=== PATIENT | male | born 1955 | race Caucasian/White ===

== ENCOUNTER 2018-10-24 14:00 | Emergency (ER) | payer OTHER, SELFPAY ==
[2018-10-24 14:05] VITALS: BP 141/88; PULSE 53; RESP 14; TEMP 36.6; O2SAT 99
--- NOTE | 2018-10-24 14:20 | ED.MALEGU ---
HPI - Male Genitourinary <Diane Cope PA-C - Last Filed: 10/24/18 21:56> General Chief complaint: Urogenital-Male Stated complaint: thinks he is having an appendicitis Time Seen by Provider: 10/24/18 14:15 Source: patient Mode of arrival: ambulatory Limitations: no limitations History of Present Illness HPI Narrative: This 63-year-old male complains of abrupt onset of right side pain about 3 hours ago while driving. He denies any trauma or injury. He states that he can feel this in his right lower abdomen but also in his back across the belt line. States that pain is constant but gets more severe spasmodic type of pain that will last for a couple of minutes, then get slightly better. He states that he tried to lie down but this did not help as it usually does with his chronic intermittent back pain. He states there are no exacerbating or alleviating features to this pain. states he had some nausea earlier but none now, no vomiting. he denies any fever, chills, sweats. He denies any urinary symptoms today or hematuria. He states he had a normal, slightly smaller than usual bowel movement last night. He had a cold recently which seems to be improving. Denies any wheeze or dyspnea. He denies any pain in his extremities. he states that he tried Tylenol arthritis Strength for pain earlier without any relief. He is on Celebrex for his chronic back and neck issues but has not taken that today. He denies any other new symptoms on systems review Related Data Previous Rx's Medication Instructions Recorded oxycodone-acetaminophen [Percocet] 1 tab PO Q4-6H PRN #10 tab 10/24/18 Allergies Allergy/AdvReac Type Severity Reaction Status Date / Time No Known Drug Allergies Allergy Verified 10/24/18 14:09 Review of Systems <Diane Cope PA-C - Last Filed: 10/24/18 21:56> Review of Systems ROS Unobtainable: All systems reviewed & are unremarkable except as noted in HPI and below PFSH <Diane Cope PA-C - Last Filed: 10/24/18 21:56> Medical History (Updated 10/24/18 @ 17:04 by Diane Cope PA-C) BPH (benign prostatic hyperplasia) (Chronic) Degenerative disc disease (Chronic) History of colon polyps (Chronic) Osteoarthritis (Chronic) Surgical History (Updated 10/24/18 @ 14:40 by Diane Cope PA-C) History of adenoidectomy (Resolved) History of shoulder surgery (Resolved) Status post laminectomy (Resolved) Social History (Updated 10/24/18 @ 14:40 by Diane Cope PA-C) Smoking Status: Never smoker alcohol intake: current Social History (Updated 10/24/18 @ 14:40 by Diane Cope PA-C) Smoking Status: Never smoker alcohol intake: current Comment: Occasional ETOH Exam <Diane Cope PA-C - Last Filed: 10/24/18 21:56> Narrative Exam Narrative: GENERAL APPEARANCE: Patient sitting comfortably, in no distress. HEENT: PERRL, EOMI, no scleral icterus NECK: Supple LUNGS: Clear to auscultation bilaterally. HEART: Rate and rhythm regular, normal S1 and S2, no S3 or S4. ABDOMEN: Soft, nondistended, bowel sounds present x 4 quadrants, no masses palpable, no hepatosplenomegaly. minimal right upper quadrant tenderness, moderate right CVAT. moderate tenderness over the right lower quadrant and pelvic border without guarding or rebound EXTREMITIES: No edema DERMATOLOGIC: No jaundice or exanthem NEUROLOGIC: Alert and oriented with normal speech and coordination Initial Vital Signs Initial Vital Signs: Vital Signs Temperature 97.9 F 10/24/18 14:05 Pulse Rate 53 L 10/24/18 14:05 Respiratory Rate 14 10/24/18 14:05 Blood Pressure 141/88 H 10/24/18 14:05 Pulse Oximetry 99 10/24/18 14:05 <Niki Ayers MD - Last Filed: 11/03/18 07:39> Initial Vital Signs Initial Vital Signs: Vital Signs Temperature 97.9 F 10/24/18 14:05 Pulse Rate 53 L 10/24/18 14:05 Respiratory Rate 14 10/24/18 14:05 Blood Pressure 141/88 H 10/24/18 14:05 Pulse Oximetry 99 10/24/18 14:05 Course <Diane Cope PA-C - Last Filed: 10/24/18 21:56> Additional Information: Patient is feeling much improved at the time of discharge. He was given a prescription for Percocet to continue as needed as he has taken oxycodone without problem for his spinal issues in the past. He has follow-up set up with his PCP for tomorrow and discussed he may need a referral to see Urology if this stone is not passing as expected. He agreed to return if acutely worsening symptoms again in the interim Orders Ordered: Discontinued Medications Hydromorphone HCl (Dilaudid) 1 mg IV NOW ONE Stop: 10/24/18 14:35 Last Admin: 10/24/18 14:39 Dose: 1 mg Sodium Chloride (Normal Saline 0.9%) 1,000 mls @ 1,000 mls/hr IV BOLUS ONE Stop: 10/24/18 15:33 Last Infusion: 10/24/18 16:10 Dose: 0 mls/hr Admin: 10/24/18 14:40 Dose: 1,000 mls/hr Ketorolac Tromethamine (Toradol) 30 mg IV NOW ONE Stop: 10/24/18 14:35 Last Admin: 10/24/18 14:40 Dose: 30 mg Ondansetron HCl (Zofran) 4 mg IV NOW ONE Stop: 10/24/18 14:35 Last Admin: 10/24/18 14:40 Dose: 4 mg Vital Signs - 8 hr 10/24/18 14:05 10/24/18 17:10 Temperature 97.9 F 98.7 F Pulse Rate 53 L 52 L Respiratory Rate 14 20 Blood Pressure 141/88 H 127/89 Pulse Oximetry 99 98 <Niki Ayers MD - Last Filed: 11/03/18 07:39> Orders Ordered: Discontinued Medications Hydromorphone HCl (Dilaudid) 1 mg IV NOW ONE Stop: 10/24/18 14:35 Last Admin: 10/24/18 14:39 Dose: 1 mg Sodium Chloride (Normal Saline 0.9%) 1,000 mls @ 1,000 mls/hr IV BOLUS ONE Stop: 10/24/18 15:33 Last Infusion: 10/24/18 16:10 Dose: 0 mls/hr Admin: 10/24/18 14:40 Dose: 1,000 mls/hr Ketorolac Tromethamine (Toradol) 30 mg IV NOW ONE Stop: 10/24/18 14:35 Last Admin: 10/24/18 14:40 Dose: 30 mg Ondansetron HCl (Zofran) 4 mg IV NOW ONE Stop: 10/24/18 14:35 Last Admin: 10/24/18 14:40 Dose: 4 mg Vital Signs - 8 hr 10/24/18 14:05 10/24/18 17:10 Temperature 97.9 F 98.7 F Pulse Rate 53 L 52 L Respiratory Rate 14 20 Blood Pressure 141/88 H 127/89 Pulse Oximetry 99 98 MDM - Male Genitourinary <Diane Cope PA-C - Last Filed: 10/24/18 21:56> Lab Data Attestation: I reviewed the patient's lab results. Result diagrams: 10/24/18 Unknown 10/24/18 Unknown Lab Results 10/24/18 10/24/18 10/24/18 Range/Units 16:14 Unknown Unknown WBC 6.6 (4.5-11.0) X10^3/uL RBC 5.00 (4.5-5.9) X10^6/uL Hgb 15.5 (13.5-17.5) g/dL Hct 46.7 (41-53) % MCV 93.5 (80-100) fL MCH 30.9 (26-34) PG MCHC 33.1 (30-36) % RDW 13.1 (11.6-14.8) % Plt Count 203 (150-400) X10^3/uL Neut % (Auto) 48.7 L (50-75) % Lymph % (Auto) 33.5 (25-40) % [place] % (Auto) 13.2 (3-14) % Eos % (Auto) 3.9 (2-4) % Baso % (Auto) 0.7 (0-2) % Neut # (Auto) 3200 (8348-7179) /uL Lymph # (Auto) 2200 (4440-5478) /uL [place] # (Auto) 900 (0-900) /uL Eos # (Auto) 300 (0-450) /uL Baso # (Auto) 0 (0-100) /uL Sodium 140 (137-145) mmol/L Potassium 4.2 (3.4-5.1) mmol/L Chloride 106 (98-107) mmol/L Carbon Dioxide 23 (22-32) mmol/L BUN 18 (9-20) mg/dL Creatinine 1.00 (0.66-1.25) mg/dL Estimated GFR > 60.0 (>60) mL/min BUN/Creatinine Ratio 18.0 (6-22) Glucose 107 (80-110) mg/dL Calcium 9.1 (8.4-10.2) mg/dL Total Bilirubin 0.5 (0.2-1.3) mg/dL AST 37 (17-59) IU/L ALT 38 (21-72) IU/L Alkaline Phosphatase 71 (38-126) U/L Total Protein 7.6 (6.3-8.2) g/dL Albumin 4.3 (3.5-5.0) g/dL Globulin 3.3 (1.7-4.1) g/dL Albumin/Globulin Ratio 1.3 (1.0-2.8) Lipase 81 (23-300) U/L Urine RBC 30-100/hpf H (0-5/HPF) Urine WBC 0-1/hpf (0-5/HPF) Ur Squamous Epith Cells 0-1 /hpf Calcium Oxalate Crystal Moderate H (None) Amorphous Sediment 1+ Urine Bacteria None seen (None) Urine Mucus 3+ H (Negative) Ur Culture Indicated? Cult not indicated Urine Dip Bedside Urine Glucose Negative Bedside Urine Bilirubin + 1 Bedside Urine Ketone +/- 5 Urine Specific [place] 1.030 Bedside Urine Occult Blood +++ Bedside Urine pH 5.0 Bedside Urine Protein + 30 Bedside Urine Urobilinogen +/- 1mg Bedside Urine Nitrite - Negative Bedside Urine Leukocytes - Negative Esterase Imaging Data KUB CT: Radiologist's impression: 19 Diane Cope PA-C Find Patient Imaging Neno Arceo 63 M 1955 ACTIVITY DATE EXAM STATUS AUTHOR 10/24/18 14:44 [place] [address] CT Scan Report Signed Patient: Neno Arceo [facility]#: [id number] : 7Acct:[id number] Age/Sex: 63 / MDate of Service: 10/24/18 Loc: ED Accession Number: [id number] Procedure: CT kidney ureter bladder (KUB) Ordering Provider: Diane Cope P.A-C PROCEDURE: CT KIDNEY URETER BLADDER (KUB) INDICATIONS: Right flank pain ?stone TECHNIQUE: Noncontrast 5 mm thick sections acquired from the diaphragms to the symphysis. 5 mm thick coronal and sagittal reformats were then performed. For radiation dose reduction, the following was used: automated exposure control, adjustment of mA and/or kV according to patient size. COMPARISON: None. FINDINGS: Image quality: Excellent. Lung bases: There is mild scarring the visualized lung bases. There are few small subpleural nodules including a 6 mm nodule in the inferior right middle lobe on series 5 image 11, a 6 mm nodule in the right lower lobe on image 7, and a small 4 mm subpleural nodule in the right middle lobe on image 1. There are postsurgical changes status post fixation of the right 6th rib laterally. Heart size is normal. Urinary system: There is a small obstructing stone in the proximal right ureter at the ureteropelvic junction measuring up to approximately 5 mm with associated mild to moderate right hydronephrosis. There is perinephric stranding bilaterally, right greater than left. The mid to distal right ureter are normal in caliber. An additional punctate nonobstructing stone is demonstrated within the right kidney. No definite left renal stones. No left hydronephrosis. Left ureter is normal in caliber. Bladder wall thickness is normal; no calcified bladder stones. Other solid organs: Noncontrast evaluation of the liver demonstrates no focal hepatic lesions. The gallbladder appears within normal limits without calcified gallstones. Pancreas is normal in contours. Spleen is normal in size. No adrenal nodules. Peritoneum and bowel: Unenhanced bowel loops demonstrate normal wall thickness and caliber. The appendix is normal in appearance. No free fluid or air. Nodes and vessels: No retroperitoneal or mesenteric adenopathy by size criteria. Aorta and inferior vena cava are normal in caliber. Abdominal wall: No ventral hernias. Pelvis: No free pelvic fluid. No inguinal hernias or adenopathy. Bones: No suspicious bony lesions. No vertebral body compression fractures. IMPRESSION: 1. Obstructing urinary stone at the right UPJ with associated mild to moderate hydronephrosis. Dictated by: Danny Bedolla M.D. on 10/24/2018 at 15:06 Approved by: Danny Bedolla M.D. on 10/24/2018 at 15:11 <Niki Ayers MD - Last Filed: 11/03/18 07:39> Lab Data Lab Results 10/24/18 10/24/18 10/24/18 Range/Units 16:14 Unknown Unknown WBC 6.6 (4.5-11.0) X10^3/uL RBC 5.00 (4.5-5.9) X10^6/uL Hgb 15.5 (13.5-17.5) g/dL Hct 46.7 (41-53) % MCV 93.5 (80-100) fL MCH 30.9 (26-34) PG MCHC 33.1 (30-36) % RDW 13.1 (11.6-14.8) % Plt Count 203 (150-400) X10^3/uL Neut % (Auto) 48.7 L (50-75) % Lymph % (Auto) 33.5 (25-40) % [place] % (Auto) 13.2 (3-14) % Eos % (Auto) 3.9 (2-4) % Baso % (Auto) 0.7 (0-2) % Neut # (Auto) 3200 (0[address]46) /uL Lymph # (Auto) 2200 (7990-5656) /uL [place] # (Auto) 900 (0-900) /uL Eos # (Auto) 300 (0-450) /uL Baso # (Auto) 0 (0-100) /uL Sodium 140 (137-145) mmol/L Potassium 4.2 (3.4-5.1) mmol/L Chloride 106 (98-107) mmol/L Carbon Dioxide 23 (22-32) mmol/L BUN 18 (9-20) mg/dL Creatinine 1.00 (0.66-1.25) mg/dL Estimated GFR > 60.0 (>60) mL/min BUN/Creatinine Ratio 18.0 (6-22) Glucose 107 (80-110) mg/dL Calcium 9.1 (8.4-10.2) mg/dL Total Bilirubin 0.5 (0.2-1.3) mg/dL AST 37 (17-59) IU/L ALT 38 (21-72) IU/L Alkaline Phosphatase 71 (38-126) U/L Total Protein 7.6 (6.3-8.2) g/dL Albumin 4.3 (3.5-5.0) g/dL Globulin 3.3 (1.7-4.1) g/dL Albumin/Globulin Ratio 1.3 (1.0-2.8) Lipase 81 (23-300) U/L Urine RBC 30-100/hpf H (0-5/HPF) Urine WBC 0-1/hpf (0-5/HPF) Ur Squamous Epith Cells 0-1 /hpf Calcium Oxalate Crystal Moderate H (None) Amorphous Sediment 1+ Urine Bacteria None seen (None) Urine Mucus 3+ H (Negative) Ur Culture Indicated? Cult not indicated Urine Dip Bedside Urine Glucose Negative Bedside Urine Bilirubin + 1 Bedside Urine Ketone +/- 5 Urine Specific [place] 1.030 Bedside Urine Occult Blood +++ Bedside Urine pH 5.0 Bedside Urine Protein + 30 Bedside Urine Urobilinogen +/- 1mg Bedside Urine Nitrite - Negative Bedside Urine Leukocytes - Negative Esterase Discharge Plan Departure Patient Disposition: Home Clinical Impression: Right nephrolithiasis Discharge Date/Time: 10/24/18 17:11 Interventions: ED Discharge Assessment Last Done: 10/24/18 17:10 Instructions: DI for Kidney Stones Activity Restrictions/Additional Instructions: Please return as we talked about if you have acutely worsening symptoms, i.e. uncontrolled pain, new fever or vomiting or inability to urinate. You do have a kidney stone on the right side that is at the junction of your ureter (the tube connecting your kidney and bladder) and your pelvis, and this is likely what has caused your pain today. The size of stone that you have will typically pass on its own, but you may need to see a urologist if it is not passing and you're not feeling better. Please take your Flomax as usual tonight, drink plenty of fluids, and you can take the oxycodone/acetaminophen as needed since you have done well with that in the past for pain in your back (do not drive as it may make you sleepy). Follow-up with your PCP as planned tomorrow to assess your progress and determine whether you need to see a urologist Prescriptions: New oxycodone-acetaminophen [Percocet] 5-325 mg tablet 1 tab PO Q4-6H PRN (Reason: acute kidney stone pain) Qty: 10 RF: 0 Referrals: [facility] [Provider Group]
[2018-10-24] MEDS: HYDROMORPHONE 1 MG INJ IV (14:39)
[2018-10-24] MEDS: KETOROLAC 60 MG/2 ML VIAL 30 MG IV (14:40)
[2018-10-24] MEDS: SODIUM CHLORIDE 0.9% 1,000 ML 1000 ML IV (14:40)
[2018-10-24] MEDS: ONDANSETRON 4 MG/2 ML INJ IV (14:40)
--- NOTE | 2018-10-24 14:41 | ED_ITS ---
HPI - Male Genitourinary <Diane Cope PA-C - Last Filed: 10/24/18 21:56> General Chief complaint: Urogenital-Male Stated complaint: thinks he is having an appendicitis Time Seen by Provider: 10/24/18 14:15 Source: patient Mode of arrival: ambulatory Limitations: no limitations History of Present Illness HPI Narrative: This 63-year-old male complains of abrupt onset of right side pain about 3 hours ago while driving. He denies any trauma or injury. He states that he can feel this in his right lower abdomen but also in his back across the belt line. States that pain is constant but gets more severe spasmodic type of pain that will last for a couple of minutes, then get slightly better. He states that he tried to lie down but this did not help as it usually does with his chronic intermittent back pain. He states there are no exacerbating or alleviating features to this pain. states he had some nausea earlier but none now, no vomiting. he denies any fever, chills, sweats. He denies any urinary symptoms today or hematuria. He states he had a normal, slightly smaller than usual bowel movement last night. He had a cold recently which seems to be improving. Denies any wheeze or dyspnea. He denies any pain in his extremities. he states that he tried Tylenol arthritis Strength for pain earlier without any relief. He is on Celebrex for his chronic back and neck issues but has not taken that today. He denies any other new symptoms on systems review Related Data Previous Rx's Medication Instructions Recorded oxycodone-acetaminophen [Percocet] 1 tab PO Q4-6H PRN #10 tab 10/24/18 Allergies Allergy/AdvReac Type Severity Reaction Status Date / Time No Known Drug Allergies Allergy Verified 10/24/18 14:09 Review of Systems <Diane Cope PA-C - Last Filed: 10/24/18 21:56> Review of Systems ROS Unobtainable: All systems reviewed & are unremarkable except as noted in HPI and below PFSH <Diane Cope PA-C - Last Filed: 10/24/18 21:56> Medical History (Updated 10/24/18 @ 17:04 by Diane Cope PA-C) BPH (benign prostatic hyperplasia) (Chronic) Degenerative disc disease (Chronic) History of colon polyps (Chronic) Osteoarthritis (Chronic) Surgical History (Updated 10/24/18 @ 14:40 by Diane Cope PA-C) History of adenoidectomy (Resolved) History of shoulder surgery (Resolved) Status post laminectomy (Resolved) Social History (Updated 10/24/18 @ 14:40 by Diane Cope PA-C) Smoking Status: Never smoker alcohol intake: current Social History (Updated 10/24/18 @ 14:40 by Diane Cope PA-C) Smoking Status: Never smoker alcohol intake: current Comment: Occasional ETOH Exam <Diane Cope PA-C - Last Filed: 10/24/18 21:56> Narrative Exam Narrative: GENERAL APPEARANCE: Patient sitting comfortably, in no distress. HEENT: PERRL, EOMI, no scleral icterus NECK: Supple LUNGS: Clear to auscultation bilaterally. HEART: Rate and rhythm regular, normal S1 and S2, no S3 or S4. ABDOMEN: Soft, nondistended, bowel sounds present x 4 quadrants, no masses palpable, no hepatosplenomegaly. minimal right upper quadrant tenderness, moderate right CVAT. moderate tenderness over the right lower quadrant and pelvic border without guarding or rebound EXTREMITIES: No edema DERMATOLOGIC: No jaundice or exanthem NEUROLOGIC: Alert and oriented with normal speech and coordination Initial Vital Signs Initial Vital Signs: Vital Signs Temperature 97.9 F 10/24/18 14:05 Pulse Rate 53 L 10/24/18 14:05 Respiratory Rate 14 10/24/18 14:05 Blood Pressure 141/88 H 10/24/18 14:05 Pulse Oximetry 99 10/24/18 14:05 <Niki Ayers MD - Last Filed: 11/03/18 07:39> Initial Vital Signs Initial Vital Signs: Vital Signs Temperature 97.9 F 10/24/18 14:05 Pulse Rate 53 L 10/24/18 14:05 Respiratory Rate 14 10/24/18 14:05 Blood Pressure 141/88 H 10/24/18 14:05 Pulse Oximetry 99 10/24/18 14:05 Course <Diane Cope PA-C - Last Filed: 10/24/18 21:56> Additional Information: Patient is feeling much improved at the time of discharge. He was given a prescription for Percocet to continue as needed as he has taken oxycodone without problem for his spinal issues in the past. He has follow-up set up with his PCP for tomorrow and discussed he may need a referral to see Urology if this stone is not passing as expected. He agreed to return if acutely worsening symptoms again in the interim Orders Ordered: Discontinued Medications Hydromorphone HCl (Dilaudid) 1 mg IV NOW ONE Stop: 10/24/18 14:35 Last Admin: 10/24/18 14:39 Dose: 1 mg Sodium Chloride (Normal Saline 0.9%) 1,000 mls @ 1,000 mls/hr IV BOLUS ONE Stop: 10/24/18 15:33 Last Infusion: 10/24/18 16:10 Dose: 0 mls/hr Admin: 10/24/18 14:40 Dose: 1,000 mls/hr Ketorolac Tromethamine (Toradol) 30 mg IV NOW ONE Stop: 10/24/18 14:35 Last Admin: 10/24/18 14:40 Dose: 30 mg Ondansetron HCl (Zofran) 4 mg IV NOW ONE Stop: 10/24/18 14:35 Last Admin: 10/24/18 14:40 Dose: 4 mg Vital Signs - 8 hr 10/24/18 14:05 10/24/18 17:10 Temperature 97.9 F 98.7 F Pulse Rate 53 L 52 L Respiratory Rate 14 20 Blood Pressure 141/88 H 127/89 Pulse Oximetry 99 98 <Niki Ayers MD - Last Filed: 11/03/18 07:39> Orders Ordered: Discontinued Medications Hydromorphone HCl (Dilaudid) 1 mg IV NOW ONE Stop: 10/24/18 14:35 Last Admin: 10/24/18 14:39 Dose: 1 mg Sodium Chloride (Normal Saline 0.9%) 1,000 mls @ 1,000 mls/hr IV BOLUS ONE Stop: 10/24/18 15:33 Last Infusion: 10/24/18 16:10 Dose: 0 mls/hr Admin: 10/24/18 14:40 Dose: 1,000 mls/hr Ketorolac Tromethamine (Toradol) 30 mg IV NOW ONE Stop: 10/24/18 14:35 Last Admin: 10/24/18 14:40 Dose: 30 mg Ondansetron HCl (Zofran) 4 mg IV NOW ONE Stop: 10/24/18 14:35 Last Admin: 10/24/18 14:40 Dose: 4 mg Vital Signs - 8 hr 10/24/18 14:05 10/24/18 17:10 Temperature 97.9 F 98.7 F Pulse Rate 53 L 52 L Respiratory Rate 14 20 Blood Pressure 141/88 H 127/89 Pulse Oximetry 99 98 MDM - Male Genitourinary <Diane oCpe PA-C - Last Filed: 10/24/18 21:56> Lab Data Attestation: I reviewed the patient's lab results. Result diagrams: 10/24/18 Unknown 10/24/18 Unknown Lab Results 10/24/18 10/24/18 10/24/18 Range/Units 16:14 Unknown Unknown WBC 6.6 (4.5-11.0) X10^3/uL RBC 5.00 (4.5-5.9) X10^6/uL Hgb 15.5 (13.5-17.5) g/dL Hct 46.7 (41-53) % MCV 93.5 (80-100) fL MCH 30.9 (26-34) PG MCHC 33.1 (30-36) % RDW 13.1 (11.6-14.8) % Plt Count 203 (150-400) X10^3/uL Neut % (Auto) 48.7 L (50-75) % Lymph % (Auto) 33.5 (25-40) % Frederick % (Auto) 13.2 (3-14) % Eos % (Auto) 3.9 (2-4) % Baso % (Auto) 0.7 (0-2) % Neut # (Auto) 3200 (6979-4651) /uL Lymph # (Auto) 2200 (6796-9491) /uL Frederick # (Auto) 900 (0-900) /uL Eos # (Auto) 300 (0-450) /uL Baso # (Auto) 0 (0-100) /uL Sodium 140 (137-145) mmol/L Potassium 4.2 (3.4-5.1) mmol/L Chloride 106 (98-107) mmol/L Carbon Dioxide 23 (22-32) mmol/L BUN 18 (9-20) mg/dL Creatinine 1.00 (0.66-1.25) mg/dL Estimated GFR > 60.0 (>60) mL/min BUN/Creatinine Ratio 18.0 (6-22) Glucose 107 (80-110) mg/dL Calcium 9.1 (8.4-10.2) mg/dL Total Bilirubin 0.5 (0.2-1.3) mg/dL AST 37 (17-59) IU/L ALT 38 (21-72) IU/L Alkaline Phosphatase 71 (38-126) U/L Total Protein 7.6 (6.3-8.2) g/dL Albumin 4.3 (3.5-5.0) g/dL Globulin 3.3 (1.7-4.1) g/dL Albumin/Globulin Ratio 1.3 (1.0-2.8) Lipase 81 (23-300) U/L Urine RBC 30-100/hpf H (0-5/HPF) Urine WBC 0-1/hpf (0-5/HPF) Ur Squamous Epith Cells 0-1 /hpf Calcium Oxalate Crystal Moderate H (None) Amorphous Sediment 1+ Urine Bacteria None seen (None) Urine Mucus 3+ H (Negative) Ur Culture Indicated? Cult not indicated Urine Dip Bedside Urine Glucose Negative Bedside Urine Bilirubin + 1 Bedside Urine Ketone +/- 5 Urine Specific [place] 1.030 Bedside Urine Occult Blood +++ Bedside Urine pH 5.0 Bedside Urine Protein + 30 Bedside Urine Urobilinogen +/- 1mg Bedside Urine Nitrite - Negative Bedside Urine Leukocytes - Negative Esterase Imaging Data KUB CT: Radiologist's impression: 19 Diane Cope PA-C Find Patient Imaging Neno Arceo 63 M 1955 ACTIVITY DATE EXAM STATUS AUTHOR 10/24/18 14:44 [place] [address] CT Scan Report Signed Patient: Neno Arceo [facility]#: [id number] : 7Acct:[id number] Age/Sex: 63 / MDate of Service: 10/24/18 Loc: ED Accession Number: [id number] Procedure: CT kidney ureter bladder (KUB) Ordering Provider: Diane Cope P.A-C PROCEDURE: CT KIDNEY URETER BLADDER (KUB) INDICATIONS: Right flank pain ?stone TECHNIQUE: Noncontrast 5 mm thick sections acquired from the diaphragms to the symphysis. 5 mm thick coronal and sagittal reformats were then performed. For radiation dose reduction, the following was used: automated exposure control, adjustment of mA and/or kV according to patient size. COMPARISON: None. FINDINGS: Image quality: Excellent. Lung bases: There is mild scarring the visualized lung bases. There are few small subpleural nodules including a 6 mm nodule in the inferior right middle lobe on series 5 image 11, a 6 mm nodule in the right lower lobe on image 7, and a small 4 mm subpleural nodule in the right middle lobe on image 1. There are postsurgical changes status post fixation of the right 6th rib laterally. Heart size is normal. Urinary system: There is a small obstructing stone in the proximal right ureter at the ureteropelvic junction measuring up to approximately 5 mm with associated mild to moderate right hydronephrosis. There is perinephric stranding bilaterally, right greater than left. The mid to distal right ureter are normal in caliber. An additional punctate nonobstructing stone is demonstrated within the right kidney. No definite left renal stones. No left hydronephrosis. Left ureter is normal in caliber. Bladder wall thickness is normal; no calcified bladder stones. Other solid organs: Noncontrast evaluation of the liver demonstrates no focal hepatic lesions. The gallbladder appears within normal limits without calcified g allstones. Pancreas is normal in contours. Spleen is normal in size. No adrenal nodules. Peritoneum and bowel: Unenhanced bowel loops demonstrate normal wall thickness and caliber. The appendix is normal in appearance. No free fluid or air. Nodes and vessels: No retroperitoneal or mesenteric adenopathy by size criteria. Aorta and inferior vena cava are normal in caliber. Abdominal wall: No ventral hernias. Pelvis: No free pelvic fluid. No inguinal hernias or adenopathy. Bones: No suspicious bony lesions. No vertebral body compression fractures. IMPRESSION: 1. Obstructing urinary stone at the right UPJ with associated mild to moderate hydronephrosis. Dictated by: Danny Bedolla M.D. on 10/24/2018 at 15:06 Approved by: Danny Bedolla M.D. on 10/24/2018 at 15:11 <Niki Ayers MD - Last Filed: 11/03/18 07:39> Lab Data Lab Results 10/24/18 10/24/18 10/24/18 Range/Units 16:14 Unknown Unknown WBC 6.6 (4.5-11.0) X10^3/uL RBC 5.00 (4.5-5.9) X10^6/uL Hgb 15.5 (13.5-17.5) g/dL Hct 46.7 (41-53) % MCV 93.5 (80-100) fL MCH 30.9 (26-34) PG MCHC 33.1 (30-36) % RDW 13.1 (11.6-14.8) % Plt Count 203 (150-400) X10^3/uL Neut % (Auto) 48.7 L (50-75) % Lymph % (Auto) 33.5 (25-40) % Frederick % (Auto) 13.2 (3-14) % Eos % (Auto) 3.9 (2-4) % Baso % (Auto) 0.7 (0-2) % Neut # (Auto) 3200 (0187-6182) /uL Lymph # (Auto) 2200 (4222-1931) /uL Frederick # (Auto) 900 (0-900) /uL Eos # (Auto) 300 (0-450) /uL Baso # (Auto) 0 (0-100) /uL Sodium 140 (137-145) mmol/L Potassium 4.2 (3.4-5.1) mmol/L Chloride 106 (98-107) mmol/L Carbon Dioxide 23 (22-32) mmol/L BUN 18 (9-20) mg/dL Creatinine 1.00 (0.66-1.25) mg/dL Estimated GFR > 60.0 (>60) mL/min BUN/Creatinine Ratio 18.0 (6-22) Glucose 107 (80-110) mg/dL Calcium 9.1 (8.4-10.2) mg/dL Total Bilirubin 0.5 (0.2-1.3) mg/dL AST 37 (17-59) IU/L ALT 38 (21-72) IU/L Alkaline Phosphatase 71 (38-126) U/L Total Protein 7.6 (6.3-8.2) g/dL Albumin 4.3 (3.5-5.0) g/dL Globulin 3.3 (1.7-4.1) g/dL Albumin/Globulin Ratio 1.3 (1.0-2.8) Lipase 81 (23-300) U/L Urine RBC 30-100/hpf H (0-5/HPF) Urine WBC 0-1/hpf (0-5/HPF) Ur Squamous Epith Cells 0-1 /hpf Calcium Oxalate Crystal Moderate H (None) Amorphous Sediment 1+ Urine Bacteria None seen (None) Urine Mucus 3+ H (Negative) Ur Culture Indicated? Cult not indicated Urine Dip Bedside Urine Glucose Negative Bedside Urine Bilirubin + 1 Bedside Urine Ketone +/- 5 Urine Specific [place] 1.030 Bedside Urine Occult Blood +++ Bedside Urine pH 5.0 Bedside Urine Protein + 30 Bedside Urine Urobilinogen +/- 1mg Bedside Urine Nitrite - Negative Bedside Urine Leukocytes - Negative Esterase Discharge Plan Departure Patient Disposition: Home Clinical Impression: Right nephrolithiasis Discharge Date/Time: 10/24/18 17:11 Interventions: ED Discharge Assessment Last Done: 10/24/18 17:10 Instructions: DI for Kidney Stones Activity Restrictions/Additional Instructions: Please return as we talked about if you have acutely worsening symptoms, i.e. uncontrolled pain, new fever or vomiting or inability to urinate. You do have a kidney stone on the right side that is at the junction of your ureter (the tube connecting your kidney and bladder) and your pelvis, and this is likely what has caused your pain today. The size of stone that you have will typically pass on its own, but you may need to see a urologist if it is not passing and you're not feeling better. Please take your Flomax as usual tonight, drink plenty of fluids, and you can take the oxycodone/acetaminophen as needed since you have done well with that in the past for pain in your back (do not drive as it may make you sleepy). Follow-up with your PCP as planned tomorrow to assess your progress and determine whether you need to see a urologist Prescriptions: New oxycodone-acetaminophen [Percocet] 5-325 mg tablet 1 tab PO Q4-6H PRN (Reason: acute kidney stone pain) Qty: 10 RF: 0 Referrals: [facility] [Provider Group]
--- NOTE | 2018-10-24 14:44 | DI.CT.S_ITS ---
PROCEDURE: CT KIDNEY URETER BLADDER (KUB) INDICATIONS: Right flank pain ?stone TECHNIQUE: Noncontrast 5 mm thick sections acquired from the diaphragms to the symphysis. 5 mm thick coronal and sagittal reformats were then performed. For radiation dose reduction, the following was used: automated exposure control, adjustment of mA and/or kV according to patient size. COMPARISON: None. FINDINGS: Image quality: Excellent. Lung bases: There is mild scarring the visualized lung bases. There are few small subpleural nodules including a 6 mm nodule in the inferior right middle lobe on series 5 image 11, a 6 mm nodule in the right lower lobe on image 7, and a small 4 mm subpleural nodule in the right middle lobe on image 1. There are postsurgical changes status post fixation of the right 6th rib laterally. Heart size is normal. Urinary system: There is a small obstructing stone in the proximal right ureter at the ureteropelvic junction measuring up to approximately 5 mm with associated mild to moderate right hydronephrosis. There is perinephric stranding bilaterally, right greater than left. The mid to distal right ureter are normal in caliber. An additional punctate nonobstructing stone is demonstrated within the right kidney. No definite left renal stones. No left hydronephrosis. Left ureter is normal in caliber. Bladder wall thickness is normal; no calcified bladder stones. Other solid organs: Noncontrast evaluation of the liver demonstrates no focal hepatic lesions. The gallbladder appears within normal limits without calcified gallstones. Pancreas is normal in contours. Spleen is normal in size. No adrenal nodules. Peritoneum and bowel: Unenhanced bowel loops demonstrate normal wall thickness and caliber. The appendix is normal in appearance. No free fluid or air. Nodes and vessels: No retroperitoneal or mesenteric adenopathy by size criteria. Aorta and inferior vena cava are normal in caliber. Abdominal wall: No ventral hernias. Pelvis: No free pelvic fluid. No inguinal hernias or adenopathy. Bones: No suspicious bony lesions. No vertebral body compression fractures. IMPRESSION: 1. Obstructing urinary stone at the right UPJ with associated mild to moderate hydronephrosis. Dictated by: Danny Bedolla M.D. on 10/24/2018 at 15:06 Approved by: Danny Bedolla M.D. on 10/24/2018 at 15:11
[2018-10-24 14:50] LABS: Add Manual Diff / Slide Review NO; Basophils Absolute Auto 0 /uL (0-100); Basophils Percent Auto 0.7 % (0-2); Eosinophils Absolute Auto 300 /uL (0-450); Eosinophils Percent Auto 3.9 % (2-4); Hematocrit 46.7 % (41-53); Hemoglobin 15.5 g/dL (13.5-17.5); Lymphocytes Absolute Auto 2200 /uL (1100-4500); Lymphocytes Percent Auto 33.5 % (25-40); Mean Corpuscular HGB Conc 33.1 % (30-36); Mean Corpuscular Hemoglobin 30.9 PG (26-34); Mean Corpuscular Volume 93.5 fL (80-100); Monocytes Absolute Auto 900 /uL (0-900); Monocytes Percent Auto 13.2 % (3-14); Neutrophils Absolute Auto 3200 /uL (1500-7000); Neutrophils Percent Auto 48.7 % (50-75); Platelet Count 203 X10^3/uL (150-400); Red Cell Distribution Width 13.1 % (11.6-14.8); White Blood Cell Count 6.6 X10^3/uL (4.5-11.0)
[2018-10-24 14:57] LABS: Alanine Aminotransferase 38 IU/L (21-72); Albumin 4.3 g/dL (3.5-5.0); Albumin Globulin Ratio 1.3 (1.0-2.8); Alkaline Phosphatase 71 U/L (38-126); Aspartate Aminotransferase 37 IU/L (17-59); Bilirubin Total 0.5 mg/dL (0.2-1.3); Blood Urea Nitrogen 18 mg/dL (9-20); Calcium 9.1 mg/dL (8.4-10.2); Carbon Dioxide 23 mmol/L (22-32); Chloride 106 mmol/L (98-107); Estimated Glomerular Filt Rate > 60.0 mL/min (>60); Globulin 3.3 g/dL (1.7-4.1); Glucose 107 mg/dL (80-110); HEMOLYSIS < 15 (0-50); Lipase 81 U/L (23-300); Potassium 4.2 mmol/L (3.4-5.1); Sodium 140 mmol/L (137-145); Total Protein 7.6 g/dL (6.3-8.2)
[2018-10-24 16:45] LABS: Bacteria Urine None Seen
[2018-10-24 16:54] LABS: Amorphous Sediment Urine 1+; Calcium Oxalate Crystals Urine Moderate; Culture Indicated Urine Cult Not Indicated; Mucus Urine 3+ (Negative); RBC Urine 30-100/HPF (0-5/HPF); Squamous Epithelial Cell Urine 0-1 /HPF; WBC Urine 0-1/HPF (0-5/HPF)
[2018-10-24 17:10] VITALS: BP 127/89; PULSE 52; RESP 20; TEMP 37.1; O2SAT 98
== END 2018-10-24 17:11 | disposition home or self-care (01) ==
PROVIDERS: Emergency Provider Internal Medicine
DX: N20.0 Calculus of kidney (principal); R11.0 Nausea
CPT/HCPCS: 36591; 74176; 80053; 81003; 81015; 83690; 85025; 96361; 96374; 96375; 99283; 99284; J1170; J1885; J2405

== ENCOUNTER 2019-02-12 18:08 | Emergency (ER) | payer OTHER, SELFPAY ==
[2019-02-12 18:14] VITALS: BP 108/62; PULSE 61; RESP 14; TEMP 36.8; O2SAT 98
[2019-02-12] MEDS: ONDANSETRON 4 MG ODT SL (18:23)
[2019-02-12] MEDS: KETOROLAC 60 MG/2 ML VIAL IM (18:23)
[2019-02-12 19:40] VITALS: BP 92/58; PULSE 61; RESP 21; O2SAT 93
--- NOTE | 2019-02-12 20:21 | DI.US.S_ITS ---
PROCEDURE: US RENAL COMPLETE INDICATIONS: RIGHT FLANK PAIN; HISTORY STONES TECHNIQUE: Real-time scanning was performed of the kidneys and bladder, with image documentation. COMPARISON: [facility], CT, CT KIDNEY URETER BLADDER (KUB), 10/24/2018, 14:41. FINDINGS: Kidneys: Kidneys are normal in size. Right kidney measures 13.2 cm long; left kidney measures 12.3 cm long. Renal cortical echotexture is normal. Mild to moderate right hydronephrosis and dilatation of the ureter at the ureteropelvic junction. In the pelvis, a distal ureteral calcification is seen in the dilated right ureter measuring 5 mm or within 1 cm of the urinary bladder. The left kidney demonstrates no hydronephrosis, but as 0.4 x 0.8 cm nonobstructing lower pole calcification. Bladder: Pre-void bladder volume is 56 mL. Post-void residual is zero mL. Pre-void images demonstrate no intraluminal masses or stones. On pre-void images, neither ureteral jets are noted with color Doppler interrogation. (Of note, ureteral jets may not be detectable in up to 25% of cases due to insufficient differences in specific gravity between ureteral and bladder urine). Miscellaneous: No free pelvic fluid. IMPRESSION: 1. Mild/moderate right hydroureteronephrosis secondary to a 5 mm distal ureteral calcification. This may represent the previously seen right ureteropelvic junction calcification on prior CT scan. 2. 8mm nonobstructing left intrarenal calcification. New since prior CT scan. Dictated by: Stacy Manuel M.D. on 02/12/2019 at 21:12 Approved by: Stacy Manuel M.D. on 02/12/2019 at 21:18
--- NOTE | 2019-02-12 21:13 | ED.ABDPAIN ---
HPI - Abdominal Pain General Chief Complaint: Abdominal Pain Stated Complaint: HX KIDNEY STONE - PAIN Time Seen by Provider: 02/12/19 18:18 Source: patient and family Mode of arrival: ambulatory Limitations: no limitations History of Present Illness HPI narrative: 63-year-old male nonsmoker presents with his in the chief complaint of a sudden onset right flank pain with radiation into his right groin which started suddenly yesterday. He denies provocation or palliation and states this feels very similar to prior kidney stones. He was seen here in October and had a 5 mm stone in his upper ureter. He has not followed up with Urology. He takes Flomax daily as it is. Patient denies any nausea vomiting nor change in bowel habits. He denies dysuria, frequency or urgency. He has had no fever or shaking chills. MD complaint: flank pain Onset (ago): hour(s) Pain Consistency: intermittent Location: R flank Severity: severe Quality: stabbing and aching Radiation: RLQ Relieving factors: nothing Exacerbating factors: nothing Related Data Previous Rx's Medication Instructions Recorded oxycodone-acetaminophen [Percocet] 1 tab PO Q4-6H PRN #10 tab 10/24/18 ciprofloxacin HCl [Cipro] 500 mg PO BID #20 tab 02/12/19 hydrocodone-acetaminophen 1 tab PO Q4-6H PRN #10 tab 02/12/19 ketorolac 10 mg PO Q6H PRN #14 tab 02/12/19 ondansetron 4 mg PO TID-QID PRN #10 tab 02/12/19 Allergies Allergy/AdvReac Type Severity Reaction Status Date / Time No Known Drug Allergies Allergy Verified 10/24/18 14:09 Review of Systems Constitutional Denies chills, Denies fever(s), Denies lethargy and Denies weakness Eyes Denies change in vision, Denies eye discharge, Denies irritation and Denies loss of vision ENT Ears, Nose, Mouth, and Throat: Denies change in voice, Denies neck pain and Denies sore throat Cardiovascular Denies chest pain, Denies irregular heart rhythm, Denies lightheadedness, Denies palpitations, Denies dyspnea, Denies dyspnea on exertion and Denies orthopnea Respiratory Denies cough, Denies dyspnea, Denies dyspnea on exertion and Denies wheezing Gastrointestinal Gastrointestinal: Denies abdominal pain, Denies change in bowel habits, Denies diarrhea, Denies nausea and Denies vomiting Genitourinary Denies hematuria, Reports flank pain, Denies urinary incontinence and Denies urinary urgency Musculoskeletal Denies neck pain Integumentary/Breasts Denies pruritus, Denies erythema, Denies rash and Denies wounds Neurologic Denies confusion, Denies loss of vision and Denies weakness Psychiatric Denies anxiety, Denies confusion, Denies depression, Denies homicidal ideation and Denies suicidal ideation Endocrine Denies palpitations Hematologic/Lymphatic Denies easy bruising Allergic/Immunologic Denies wheezing [facility] Medical History BPH (benign prostatic hyperplasia) (Chronic) Degenerative disc disease (Chronic) History of colon polyps (Chronic) Osteoarthritis (Chronic) Surgical History History of adenoidectomy (Resolved) History of shoulder surgery (Resolved) Status post laminectomy (Resolved) Social History (Updated 10/24/18 @ 14:40 by Diane Cope PA-C) Smoking Status: Never smoker alcohol intake: current Social History Smoking Status: Never smoker alcohol intake: current Exam Narrative Exam Narrative: GENERAL: 63-year-old male, obviously uncomfortable, pacing, unable to find a position of comfort HEAD: Atraumatic. Normocephalic. No temporal or scalp tenderness. EYES: Pupils equal round and reactive. Extraocular motions intact. No scleral icterus. No injection or drainage. ENT: Nose without bleeding, purulent drainage or septal hematoma. Throat without erythema, tonsillar hypertrophy or exudate. Uvula midline. Airway patent. NECK: Trachea midline. No JVD or lymphadenopathy. Supple, nontender, no meningeal signs. CARDIOVASCULAR: Regular rate and rhythm without murmurs, gallops, or rubs. RESPIRATORY: Clear to auscultation. Breath sounds equal bilaterally. No wheezes, rales, or rhonchi. GASTROINTESTINAL: Abdomen soft, non-tender, nondistended. No hepato-splenomegaly, or palpable masses. No guarding. EXTREMITIES: No clubbing, cyanosis, or edema. No joint tenderness, effusion, or edema noted. BACK: Nontender without deformity or crepitance. No flank tenderness. NEURO: AOx3. SKIN: No rash or erythema. Initial Vital Signs Initial Vital Signs: Vital Signs Temperature 98.3 F 02/12/19 18:14 Pulse Rate 61 02/12/19 18:14 Respiratory Rate 14 02/12/19 18:14 Blood Pressure 108/62 02/12/19 18:14 Pulse Oximetry 98 02/12/19 18:14 Course Orders Ordered: ED Orders 02/12/19 20:21 US renal complete Stat 02/12/19 21:23 Basic Metabolic Panel Stat Complete Blood Count AUTO DIFF Stat Discontinued Medications Hydrocodone Bitart/Acetaminophen (Vicodin Prepack) 1 bottle MISC SEEINSTR ONE Stop: 02/12/19 22:17 Last Admin: 02/12/19 22:41 Dose: 1 bottle Ketorolac Tromethamine (Toradol) 60 mg IM NOW ONE Stop: 02/12/19 18:19 Last Admin: 02/12/19 18:23 Dose: 60 mg Levofloxacin (Levaquin) 750 mg PO NOW ONE Stop: 02/12/19 22:17 Last Admin: 02/12/19 22:39 Dose: 750 mg Ondansetron HCl (Zofran Odt) 4 mg SL NOW ONE Stop: 02/12/19 18:19 Last Admin: 02/12/19 18:23 Dose: 4 mg Ondansetron HCl (Zofran Odt Prepack) 1 bottle MISC SEEINSTR ONE Stop: 02/12/19 22:17 Last Admin: 02/12/19 22:41 Dose: 1 bottle Reevaluation(s) Reevaluation #1: Patient has near complete resolution of symptoms after above-stated therapies Consultations Consultation #1: Given slight elevation of white blood cells, hydronephrosis on ultrasound and suggestion of UTI on the urine a call placed to [facility] urology. After lengthy discussion of history physical labs and diagnostics Urology suggest the patient can be safely discharged home provided he is given good return precautions, antibiotics and is encouraged to follow up closely Vital Signs - 8 hr 02/12/19 22:24 Pulse Rate 55 L Respiratory Rate 14 Blood Pressure [Left Arm] 110/65 Pulse Oximetry 95 MDM - Abdominal Pain Lab Data Result diagrams: 02/12/19 21:23 02/12/19 21:23 Lab Results 02/12/19 02/12/19 02/12/19 Range/Units 19:00 19:00 21:23 WBC 13.3 H (4.5-11.0) X10^3/uL RBC 4.82 (4.5-5.9) X10^6/uL Hgb 15.2 (13.5-17.5) g/dL Hct 45.3 (41-53) % MCV 93.9 (80-100) fL MCH 31.4 (26-34) PG MCHC 33.5 (30-36) % RDW 13.7 (11.6-14.8) % Plt Count 182 (150-400) X10^3/uL Neut % (Auto) 72.6 (50-75) % Lymph % (Auto) 12.8 L (25-40) % [place] % (Auto) 13.8 (3-14) % Eos % (Auto) 0.4 L (2-4) % Baso % (Auto) 0.4 (0-2) % Neut # (Auto) 9700 H (3250-1261) /uL Lymph # (Auto) 1700 (2830-6575) /uL [place] # (Auto) 1800 H (0-900) /uL Eos # (Auto) 100 (0-450) /uL Baso # (Auto) 100 (0-100) /uL Sodium (137-145) mmol/L Potassium (3.4-5.1) mmol/L Chloride (98-107) mmol/L Carbon Dioxide (22-32) mmol/L BUN (9-20) mg/dL Creatinine (0.66-1.25) mg/dL Estimated GFR (>60) mL/min BUN/Creatinine Ratio (6-22) Glucose (80-110) mg/dL Calcium (8.4-10.2) mg/dL Urine Ictotest Negative (Negative) Urine RBC 0-1/hpf D (0-5/HPF) Urine WBC 5-10/hpf H (0-5/HPF) Ur Squamous Epith Cells 0-1 /hpf (0-5/HPF) Ur Transition Epith Cell 0-1/hpf (0-5/HPF) Urine Bacteria Occasional (0-1) (None) Urine Mucus 2+ H (Negative) Ur Culture Indicated? Specimen cultured 02/12/19 Range/Units 21:23 WBC (4.5-11.0) X10^3/uL RBC (4.5-5.9) X10^6/uL Hgb (13.5-17.5) g/dL Hct (41-53) % MCV (80-100) fL MCH (26-34) PG MCHC (30-36) % RDW (11.6-14.8) % Plt Count (150-400) X10^3/uL Neut % (Auto) (50-75) % Lymph % (Auto) (25-40) % [place] % (Auto) (3-14) % Eos % (Auto) (2-4) % Baso % (Auto) (0-2) % Neut # (Auto) (9896-6537) /uL Lymph # (Auto) (6974-9102) /uL [place] # (Auto) (0-900) /uL Eos # (Auto) (0-450) /uL Baso # (Auto) (0-100) /uL Sodium 137 (137-145) mmol/L Potassium 4.5 (3.4-5.1) mmol/L Chloride 100 (98-107) mmol/L Carbon Dioxide 30 (22-32) mmol/L BUN 21 H (9-20) mg/dL Creatinine 1.60 H (0.66-1.25) mg/dL Estimated GFR 44.0 L (>60) mL/min BUN/Creatinine Ratio 13.1 (6-22) Glucose 115 H (80-110) mg/dL Calcium 9.5 (8.4-10.2) mg/dL Urine Ictotest (Negative) Urine RBC (0-5/HPF) Urine WBC (0-5/HPF) Ur Squamous Epith Cells (0-5/HPF) Ur Transition Epith Cell (0-5/HPF) Urine Bacteria (None) Urine Mucus (Negative) Ur Culture Indicated? MDM Narrative Medical decision making narrative: Clinical exam is very reassuring. Patient is afebrile, not tachycardic denies rigors, nausea or vomiting. He is largely asymptomatic at time of discharge. He is given extensive return precautions and has had his questions answered to his apparent satisfaction Discharge Plan Departure Patient Disposition: Home Clinical Impression: Kidney stone, Acute UTI Discharge Date/Time: 02/12/19 22:50 Interventions: ED Discharge Assessment Last Done: 02/12/19 23:28 Instructions: DI for Kidney Stones Activity Restrictions/Additional Instructions: *You have been diagnosed with [right-sided kidney stone with urinary tract infection] *What to do: *Take medications as directed: Your prescriptions have been electronically transmitted to the [facility] in [place] at your request *Follow up with Urology at the [facility], call for an appointment. Let them know you were seen in the Emergency Department and that we ask that you be seen in follow up *Return to ER if you should have any new, worsening or concerning symptoms, such as [fever, shaking chills, nausea, vomiting or worsening pain] Prescriptions: New ketorolac 10 mg tablet 10 mg PO Q6H PRN (Reason: pain) Qty: 14 RF: 0 ondansetron 4 mg tablet,disintegrating 4 mg PO TID-QID PRN (Reason: nausea and vomiting) Qty: 10 RF: 0 ciprofloxacin HCl [Cipro] 500 mg tablet 500 mg PO BID Qty: 20 RF: 0 hydrocodone-acetaminophen 5-325 mg tablet 1 tab PO Q4-6H PRN (Reason: pain) Qty: 10 RF: 0 No Action oxycodone-acetaminophen [Percocet] 5-325 mg tablet 1 tab PO Q4-6H PRN (Reason: acute kidney stone pain) Qty: 10 RF: 0 Referrals: Moises Mendoza MD [Non-Staff] -
[2019-02-12 21:36] LABS: Add Manual Diff / Slide Review NO; Basophils Absolute Auto 100 /uL (0-100); Basophils Percent Auto 0.4 % (0-2); Eosinophils Absolute Auto 100 /uL (0-450); Eosinophils Percent Auto 0.4 % (2-4); Hematocrit 45.3 % (41-53); Hemoglobin 15.2 g/dL (13.5-17.5); Lymphocytes Absolute Auto 1700 /uL (1100-4500); Lymphocytes Percent Auto 12.8 % (25-40); Mean Corpuscular HGB Conc 33.5 % (30-36); Mean Corpuscular Hemoglobin 31.4 PG (26-34); Mean Corpuscular Volume 93.9 fL (80-100); Monocytes Absolute Auto 1800 /uL (0-900); Monocytes Percent Auto 13.8 % (3-14); Neutrophils Absolute Auto 9700 /uL (1500-7000); Neutrophils Percent Auto 72.6 % (50-75); Platelet Count 182 X10^3/uL (150-400); Red Blood Cell Count 4.82 X10^6/uL (4.5-5.9); Red Cell Distribution Width 13.7 % (11.6-14.8); White Blood Cell Count 13.3 X10^3/uL (4.5-11.0)
[2019-02-12 21:38] LABS: Bacteria Urine Occasional (0-1); Culture Indicated Urine Specimen Cultured; Mucus Urine 2+ (Negative); RBC Urine 0-1/HPF (0-5/HPF); Squamous Epithelial Cell Urine 0-1 /HPF (0-5/HPF); Transitional Epi Cells Urine 0-1/HPF (0-5/HPF); WBC Urine 5-10/HPF (0-5/HPF)
[2019-02-12 21:42] LABS: BUN Creatinine Ratio 13.1 (6-22); Blood Urea Nitrogen 21 mg/dL (9-20); Calcium 9.5 mg/dL (8.4-10.2); Carbon Dioxide 30 mmol/L (22-32); Chloride 100 mmol/L (98-107); Glucose 115 mg/dL (80-110); HEMOLYSIS < 15 (0-50); Potassium 4.5 mmol/L (3.4-5.1); Sodium 137 mmol/L (137-145)
[2019-02-12 21:43] LABS: Ictotest Urine Negative (Negative)
[2019-02-12 22:24] VITALS: BP 110/65; PULSE 55; RESP 14; O2SAT 95
[2019-02-12] MEDS: levoFLOXacin 250 MG TABLET 750 MG PO (22:39)
[2019-02-12] MEDS: ONDANSETRON 4 MG ODT PREPACK 1 BOTTLE MISC (22:41)
[2019-02-12] MEDS: HYDROCODONE/ACET 5/325 PREPACK 1 BOTTLE MISC (22:41)
--- NOTE | 2019-02-13 04:10 | ED_ITS ---
HPI - Abdominal Pain General Chief Complaint: Abdominal Pain Stated Complaint: HX KIDNEY STONE - PAIN Time Seen by Provider: 02/12/19 18:18 Source: patient and family Mode of arrival: ambulatory Limitations: no limitations History of Present Illness HPI narrative: 63-year-old male nonsmoker presents with his in the chief complaint of a sudden onset right flank pain with radiation into his right groin which started suddenly yesterday. He denies provocation or palliation and states this feels very similar to prior kidney stones. He was seen here in October and had a 5 mm stone in his upper ureter. He has not followed up with Urology. He takes Flomax daily as it is. Patient denies any nausea vomiting no r change in bowel habits. He denies dysuria, frequency or urgency. He has had no fever or shaking chills. MD complaint: flank pain Onset (ago): hour(s) Pain Consistency: intermittent Location: R flank Severity: severe Quality: stabbing and aching Radiation: RLQ Relieving factors: nothing Exacerbating factors: nothing Related Data Previous Rx's Medication Instructions Recorded oxycodone-acetaminophen [Percocet] 1 tab PO Q4-6H PRN #10 tab 10/24/18 ciprofloxacin HCl [Cipro] 500 mg PO BID #20 tab 02/12/19 hydrocodone-acetaminophen 1 tab PO Q4-6H PRN #10 tab 02/12/19 ketorolac 10 mg PO Q6H PRN #14 tab 02/12/19 ondansetron 4 mg PO TID-QID PRN #10 tab 02/12/19 Allergies Allergy/AdvReac Type Severity Reaction Status Date / Time No Known Drug Allergies Allergy Verified 10/24/18 14:09 Review of Systems Constitutional Denies chills, Denies fever(s), Denies lethargy and Denies weakness Eyes Denies change in vision, Denies eye discharge, Denies irritation and Denies loss of vision ENT Ears, Nose, Mouth, and Throat: Denies change in voice, Denies neck pain and Denies sore throat Cardiovascular Denies chest pain, Denies irregular heart rhythm, Denies lightheadedness, Denies palpitations, Denies dyspnea, Denies dyspnea on exertion and Denies orthopnea Respiratory Denies cough, Denies dyspnea, Denies dyspnea on exertion and Denies wheezing Gastrointestinal Gastrointestinal: Denies abdominal pain, Denies change in bowel habits, Denies diarrhea, Denies nausea and Denies vomiting Genitourinary Denies hematuria, Reports flank pain, Denies urinary incontinence and Denies urinary urgency Musculoskeletal Denies neck pain Integumentary/Breasts Denies pruritus, Denies erythema, Denies rash and Denies wounds Neurologic Denies confusion, Denies loss of vision and Denies weakness Psychiatric Denies anxiety, Denies confusion, Denies depression, Denies homicidal ideation and Denies suicidal ideation Endocrine Denies palpitations Hematologic/Lymphatic Denies easy bruising Allergic/Immunologic Denies wheezing [facility] Medical History BPH (benign prostatic hyperplasia) (Chronic) Degenerative disc disease (Chronic) History of colon polyps (Chronic) Osteoarthritis (Chronic) Surgical History History of adenoidectomy (Resolved) History of shoulder surgery (Resolved) Status post laminectomy (Resolved) Social History (Updated 10/24/18 @ 14:40 by Diane Cope PA-C) Smoking Status: Never smoker alcohol intake: current Social History Smoking Status: Never smoker alcohol intake: current Exam Narrative Exam Narrative: GENERAL: 63-year-old male, obviously uncomfortable, pacing, unable to find a position of comfort HEAD: Atraumatic. Normocephalic. No temporal or scalp tenderness. EYES: Pupils equal round and reactive. Extraocular motions intact. No scleral icterus. No injection or drainage. ENT: Nose without bleeding, purulent drainage or septal hematoma. Throat without erythema, tonsillar hypertrophy or exudate. Uvula midline. Airway patent. NECK: Trachea midline. No JVD or lymphadenopathy. Supple, nontender, no meningeal signs. CARDIOVASCULAR: Regular rate and rhythm without murmurs, gallops, or rubs. RESPIRATORY: Clear to auscultation. Breath sounds equal bilaterally. No wheezes, rales, or rhonchi. GASTROINTESTINAL: Abdomen soft, non-tender, nondistended. No hepato- splenomegaly, or palpable masses. No guarding. EXTREMITIES: No clubbing, cyanosis, or edema. No joint tenderness, effusion, or edema noted. BACK: Nontender without deformity or crepitance. No flank tenderness. NEURO: AOx3. SKIN: No rash or erythema. Initial Vital Signs Initial Vital Signs: Vital Signs Temperature 98.3 F 02/12/19 18:14 Pulse Rate 61 02/12/19 18:14 Respiratory Rate 14 02/12/19 18:14 Blood Pressure 108/62 02/12/19 18:14 Pulse Oximetry 98 02/12/19 18:14 Course Orders Ordered: ED Orders 02/12/19 20:21 US renal complete Stat 02/12/19 21:23 Basic Metabolic Panel Stat Complete Blood Count AUTO DIFF Stat Discontinued Medications Hydrocodone Bitart/Acetaminophen (Vicodin Prepack) 1 bottle MISC SEEINSTR ONE Stop: 02/12/19 22:17 Last Admin: 02/12/19 22:41 Dose: 1 bottle Ketorolac Tromethamine (Toradol) 60 mg IM NOW ONE Stop: 02/12/19 18:19 Last Admin: 02/12/19 18:23 Dose: 60 mg Levofloxacin (Levaquin) 750 mg PO NOW ONE Stop: 02/12/19 22:17 Last Admin: 02/12/19 22:39 Dose: 750 mg Ondansetron HCl (Zofran Odt) 4 mg SL NOW ONE Stop: 02/12/19 18:19 Last Admin: 02/12/19 18:23 Dose: 4 mg Ondansetron HCl (Zofran Odt Prepack) 1 bottle MISC SEEINSTR ONE Stop: 02/12/19 22:17 Last Admin: 02/12/19 22:41 Dose: 1 bottle Reevaluation(s) Reevaluation #1: Patient has near complete resolution of symptoms after above- stated therapies Consultations Consultation #1: Given slight elevation of white blood cells, hydronephrosis on ultrasound and suggestion of UTI on the urine a call placed to [facility] urology. After lengthy discussion of history physical labs and diagnostics Urology suggest the patient can be safely discharged home provided he is given good return precautions, antibiotics and is encouraged to follow up closely Vital Signs - 8 hr 02/12/19 22:24 Pulse Rate 55 L Respiratory Rate 14 Blood Pressure [Left Arm] 110/65 Pulse Oximetry 95 MDM - Abdominal Pain Lab Data Result diagrams: 02/12/19 21:23 02/12/19 21:23 Lab Results 02/12/19 02/12/19 02/12/19 Range/Units 19:00 19:00 21:23 WBC 13.3 H (4.5-11.0) X10^3/uL RBC 4.82 (4.5-5.9) X10^6/uL Hgb 15.2 (13.5-17.5) g/dL Hct 45.3 (41-53) % MCV 93.9 (80-100) fL MCH 31.4 (26-34) PG MCHC 33.5 (30-36) % RDW 13.7 (11.6-14.8) % Plt Count 182 (150-400) X10^3/uL Neut % (Auto) 72.6 (50-75) % Lymph % (Auto) 12.8 L (25-40) % [place] % (Auto) 13.8 (3-14) % Eos % (Auto) 0.4 L (2-4) % Baso % (Auto) 0.4 (0-2) % Neut # (Auto) 9700 H (8291-8516) /uL Lymph # (Auto) 1700 (3513-7108) /uL [place] # (Auto) 1800 H (0-900) /uL Eos # (Auto) 100 (0-450) /uL Baso # (Auto) 100 (0-100) /uL Sodium (137-145) mmol/L Potassium (3.4-5.1) mmol/L Chloride (98-107) mmol/L Carbon Dioxide (22-32) mmol/L BUN (9-20) mg/dL Creatinine (0.66-1.25) mg/dL Estimated GFR (>60) mL/min BUN/Creatinine Ratio (6-22) Glucose (80-110) mg/dL Calcium (8.4-10.2) mg/dL Urine Ictotest Negative (Negative) Urine RBC 0-1/hpf D (0-5/HPF) Urine WBC 5-10/hpf H (0-5/HPF) Ur Squamous Epith Cells 0-1 /hpf (0-5/HPF) Ur Transition Epith Cell 0-1/hpf (0-5/HPF) Urine Bacteria Occasional (0-1) (None) Urine Mucus 2+ H (Negative) Ur Culture Indicated? Specimen cultured 02/12/19 Range/Units 21:23 WBC (4.5-11.0) X10^3/uL RBC (4.5-5.9) X10^6/uL Hgb (13.5-17.5) g/dL Hct (41-53) % MCV (80-100) fL MCH (26-34) PG MCHC (30-36) % RDW (11.6-14.8) % Plt Count (150-400) X10^3/uL Neut % (Auto) (50-75) % Lymph % (Auto) (25-40) % [place] % (Auto) (3-14) % Eos % (Auto) (2-4) % Baso % (Auto) (0-2) % Neut # (Auto) (2687-8488) /uL Lymph # (Auto) (3903-8402) /uL [place] # (Auto) (0-900) /uL Eos # (Auto) (0-450) /uL Baso # (Auto) (0-100) /uL Sodium 137 (137-145) mmol/L Potassium 4.5 (3.4-5.1) mmol/L Chloride 100 (98-107) mmol/L Carbon Dioxide 30 (22-32) mmol/L BUN 21 H (9-20) mg/dL Creatinine 1.60 H (0.66-1.25) mg/dL Estimated GFR 44.0 L (>60) mL/min BUN/Creatinine Ratio 13.1 (6-22) Glucose 115 H (80-110) mg/dL Calcium 9.5 (8.4-10.2) mg/dL Urine Ictotest (Negative) Urine RBC (0-5/HPF) Urine WBC (0-5/HPF) Ur Squamous Epith Cells (0-5/HPF) Ur Transition Epith Cell (0-5/HPF) Urine Bacteria (None) Urine Mucus (Negative) Ur Culture Indicated? MDM Narrative Medical decision making narrative: Clinical exam is very reassuring. Patient is afebrile, not tachycardic denies rigors, nausea or vomiting. He is largely asymptomatic at time of discharge. He is given extensive return precautions and has had his questions answered to his apparent satisfaction Discharge Plan Departure Patient Disposition: Home Clinical Impression: Kidney stone, Acute UTI Discharge Date/Time: 02/12/19 22:50 Interventions: ED Discharge Assessment Last Done: 02/12/19 23:28 Instructions: DI for Kidney Stones Activity Restrictions/Additional Instructions: *You have been diagnosed with [right-sided kidney stone with urinary tract infection] *What to do: *Take medications as directed: Your prescriptions have been electronically transmitted to the [facility] in [place] at your request *Follow up with Urology at the [facility], call for an appointment. Let them know you were seen in the Emergency Department and that we ask that you be seen in follow up *Return to ER if you should have any new, worsening or concerning symptoms, such as [fever, shaking chills, nausea, vomiting or worsening pain] Prescriptions: New ketorolac 10 mg tablet 10 mg PO Q6H PRN (Reason: pain) Qty: 14 RF: 0 ondansetron 4 mg tablet,disintegrating 4 mg PO TID-QID PRN (Reason: nausea and vomiting) Qty: 10 RF: 0 ciprofloxacin HCl [Cipro] 500 mg tablet 500 mg PO BID Qty: 20 RF: 0 hydrocodone-acetaminophen 5-325 mg tablet 1 tab PO Q4-6H PRN (Reason: pain) Qty: 10 RF: 0 No Action oxycodone-acetaminophen [Percocet] 5-325 mg tablet 1 tab PO Q4-6H PRN (Reason: acute kidney stone pain) Qty: 10 RF: 0 Referrals: Moises Mendoza MD [Non-Staff] -
== END 2019-02-12 22:50 | disposition home or self-care (01) ==
PROVIDERS: Emergency Provider Emergency Medicine
DX: N20.0 Calculus of kidney (principal); N39.0 Urinary tract infection, site not specified
CPT/HCPCS: 76770; 80048; 81015; 85025; 87086; 96372; 99282; 99284; J1885

== ENCOUNTER → 2019-04-24 08:45 | Outpatient (CLI) | payer OTHER, SELFPAY ==
--- NOTE | 2019-04-24 | DI.US.S_ITS ---
PROCEDURE: US RENAL COMPLETE INDICATIONS: HISTORY STONES, LITHOTRIPSY TECHNIQUE: Real-time scanning was performed of the kidneys and bladder, with image documentation. COMPARISON: [facility], CT, CT KIDNEY URETER BLADDER (KUB), 10/24/2018, 14:41. [facility], US, US RENAL COMPLETE, 02/12/2019, 20:47. FINDINGS: Kidneys: Kidneys are normal in size. Right kidney measures 12.5 cm long; left kidney measures 13.5 cm long. Right renal cortical thickness is 1.6 cm; left renal cortical thickness is 1.9 cm. Renal cortical echotexture is normal. There is a 8mm nonobstructing stone in the inferior pole of the left kidney. No hydronephrosis. No suspicious solid mass lesions. Bladder: Pre-void bladder volume is 85 mL. Post-void residual is 0 mL. Pre-void images demonstrate no intraluminal masses or stones. On pre-void images, neither ureteral jets are noted with color Doppler interrogation. (Of note, ureteral jets may not be detectable in up to 25% of cases due to insufficient differences in specific gravity between ureteral and bladder urine). Miscellaneous: No free pelvic fluid. IMPRESSION: 1. An 8 mm nonobstructive stone in inferior pole of the left kidney. No right renal stones visualized. No hydronephrosis. Dictated by: Nahid Hare M.D. on 04/24/2019 at 11:53 Approved by: Nahid Hare M.D. on 04/24/2019 at 11:58
== END ==
PROVIDERS: Visit Provider Urology
DX: N20.0 Calculus of kidney (principal); Z87.442 Personal history of urinary calculi
CPT/HCPCS: 76770

== ENCOUNTER → 2019-07-25 09:50 | Outpatient (CLI) | payer OTHER, SELFPAY ==
[2019-07-25 10:06] LABS: Bacteria Urine None Seen
[2019-07-25 10:26] LABS: Add Manual Diff / Slide Review NO; Basophils Absolute Auto 100 /uL (0-100); Eosinophils Absolute Auto 200 /uL (0-450); Hematocrit 47.3 % (41-53); Lymphocytes Absolute Auto 1800 /uL (1100-4500); Lymphocytes Percent Auto 25.4 % (25-40); Mean Corpuscular HGB Conc 33.9 % (30-36); Mean Corpuscular Hemoglobin 31.8 PG (26-34); Mean Corpuscular Volume 93.8 fL (80-100); Monocytes Absolute Auto 800 /uL (0-900); Monocytes Percent Auto 11.9 % (3-14); Neutrophils Absolute Auto 4200 /uL (1500-7000); Neutrophils Percent Auto 58.7 % (50-75); Platelet Count 192 X10^3/uL (150-400); Red Blood Cell Count 5.04 X10^6/uL (4.5-5.9); Red Cell Distribution Width 12.9 % (11.6-14.8); White Blood Cell Count 7.1 X10^3/uL (4.5-11.0)
[2019-07-25 10:34] LABS: Hemoglobin A1C% w Est Avg Glu 5.7 % (4.0-6.0)
[2019-07-25 11:06] LABS: Appearance Urine UA CLEAR; Bilirubin Urine UA NEGATIVE (NEGATIVE); Color Urine UA YELLOW; Glucose Urine UA NEGATIVE (Negative); Ketones Urine UA NEGATIVE (NEGATIVE); Leukocyte Esterase Urine UA NEGATIVE (NEGATIVE); Nitrite Urine UA NEGATIVE (Negative); Occult Blood Urine UA NEGATIVE (Negative); Protein Urine UA NEGATIVE (Negative); Urobilinogen Urine UA 0.2 E.U./dL (0.2); pH Urine UA 5.5 (4.5-8.0)
[2019-07-25 11:10] LABS: Blood Urea Nitrogen 17 mg/dL (9-20); Calcium 9.9 mg/dL (8.4-10.2); Carbon Dioxide 26 mmol/L (22-32); Chloride 102 mmol/L (98-107); Estimated Glomerular Filt Rate > 60.0 mL/min (>60); Glucose 107 mg/dL (80-110); HEMOLYSIS < 15 (0-50); Potassium 4.1 mmol/L (3.4-5.1); Sodium 138 mmol/L (137-145)
[2019-07-25 11:16] LABS: Transferrin 230 mg/dL (206-381)
[2019-07-25 11:29] LABS: Mucus Urine 1+ (Negative); RBC Urine 0-1/HPF (0-5/HPF); Squamous Epithelial Cell Urine 0-1 /HPF (0-5/HPF); WBC Urine 0-1/HPF (0-5/HPF)
[2019-07-25 11:30] LABS: Culture Indicated Urine Cult Not Indicated
== END ==
PROVIDERS: Visit Provider Orthopaedic Surgery
DX: Z01.818 Encounter for other preprocedural examination (principal); Z01.812 Encounter for preprocedural laboratory examination; R73.9 Hyperglycemia, unspecified; D64.9 Anemia, unspecified
CPT/HCPCS: 36415; 80048; 81001; 83036; 84466; 85025; 93005

== ENCOUNTER → 2019-11-04 11:19 | Outpatient (CLI) | payer OTHER, SELFPAY ==
--- NOTE | 2019-11-04 | DI.RAD.S_ITS ---
PROCEDURE: XR KUB INDICATIONS: Dorsalgia, unspecified TECHNIQUE: One view of the abdomen acquired. COMPARISON: [facility], US, US RENAL COMPLETE, 04/24/2019, 8:56. [facility], CT, CT KIDNEY URETER BLADDER (KUB), 10/24/2018, 14:41. FINDINGS: Surgical changes and devices: None. Bowel: Bowel gas pattern is normal. Soft tissues: No kidney stones identified. The previously seen inferior left kidney nonobstructing calculus on ultrasound is not identified. The remotely seen on CT calculus in the proximal right ureter is no longer identified. No suspicious abdominal calcifications. Visualized solid organ contours appear normal in size. Bones: No suspicious bony lesions. IMPRESSION: No compression fracture. No kidney stones seen. Dictated by: Neel Meléndez M.D. on 11/04/2019 at 12:09 Approved by: Neel Melédnez M.D. on 11/04/2019 at 12:13
--- NOTE | 2019-11-04 | DI.MRI.S_ITS ---
PROCEDURE: MR THORACIC SPINE WO/W CON INDICATIONS: Dorsalgia, unspecified. The patient reports sensation of a lump on the left lateral paravertebral soft tissues low thoracic spine area which was marked by a MR surface marker for reference during the course of the examination and can be seen through the pulse sequences obtained. For example, series 14 image 27 to the left of midline and sagittal imaging series 4 image 18. TECHNIQUE: Noncontrast sagittal T1 spin echo and T2 fast spin echo, sagittal STIR, axial T1 and T2 fast spin echo through the thoracic spine. After the administration of contrast, axial and sagittal T1 spin echo with fat saturation through the thoracic spine. COMPARISON: None. FINDINGS: Image quality: Excellent. Alignment and curvature: There is normal bony alignment. Marrow: Marrow is of normal overall signal. No acute vertebral body compression fractures. Spinal cord: Visualized spinal cord is of normal signal and size, without abnormal enhancement. There is only a small degree of degenerative disc disease without focal nerve root impingement or cord compression. Paraspinous soft tissues: No paravertebral masses or abnormal enhancement. The MR surface marker is located approximately 2.5 cm leftward from midline adnexal level that correlates with the upper margin of the left kidney. The MR surface marker is at the cutaneous level, and beneath this area noncontrast and post contrast imaging no underlying mass or inflammatory process is found. The underlying retroperitoneum also appears normal where well visualized. Miscellaneous: Central canal and foramina appear widely patent at all scanned levels. IMPRESSION: Source of sensation of lump at the left flank area is not identified. Mild degenerative disc disease noted along the thoracic spine and extending into the lumbosacral junction, without nerve root impingement or cord compression. Overall, the study appears normal for age. Dictated by: García Fleming M.D. on 11/04/2019 at 13:03 Approved by: García Fleming M.D. on 11/04/2019 at 13:07
== END ==
PROVIDERS: PCP Family Medicine; Referring Provider Physician Assistant; Visit Provider Family Medicine
DX: M54.9 Dorsalgia, unspecified (principal); M51.34 Other intervertebral disc degeneration, thoracic region; M51.36 Other intervertebral disc degeneration, lumbar region; M51.37 Other intervertebral disc degeneration, lumbosacral region; N20.1 Calculus of ureter
CPT/HCPCS: 72157; 74018

== ENCOUNTER → 2020-01-02 15:53 | Outpatient (CLI) | payer OTHER, SELFPAY ==
[2020-01-03 09:14] LABS: COVID19 Sendout Not Detected (Not Detect)
== END ==
PROVIDERS: PCP Family Medicine; Visit Provider Physician Assistant
DX: Z11.59 Encounter for screening for other viral diseases (principal)
CPT/HCPCS: 87635

== ENCOUNTER 2020-01-22 11:30 | Outpatient (RCR) | payer OTHER, SELFPAY | END 2020-03-18 07:34 | LOC: CAR 11:30 | PROVIDERS: PCP Family Medicine; Referring Provider Internal Medicine Cardiovascular Disease; Visit Provider Internal Medicine Cardiovascular Disease | DX: Z95.5 Presence of coronary angioplasty implant and graft (principal) | CPT/HCPCS: 93798 ==

== ENCOUNTER → 2020-09-17 07:44 | Outpatient (CLI) | payer OTHER, SELFPAY ==
--- NOTE | 2020-09-17 | DI.ECHO.S_ITS ---
[place] [facility] +---------+ : : [address] : : : : [id number] : : : : Phone: [phone]+ Echocardiogram Report + + :Name: APRIL REY Study Date: 09/17/2020 Height: 72 in : :[facility] ReadingLocation: Weight: 240 lb: : Gender: Male BSA: 2.3 m2 : :: 1955 Age: 65 yrs BP: 96/55 mmHg: :Reason For Study: DILATED ASCENDING AO : : Performed By: Valentin Torres : :Referring: GAEL MALONE : + + Interpretation Summary 1) Normal left ventricular size, wall motion, systolic function (EF 55-650). 2) Normal right ventricular size and function. 3) No significant valvular abnormalities. 4) The ascending aorta is moderate-severely enlarged at 4.6cm. 5) Compared to the Echo done 07/29/2019, no significant change. Procedure: A two-dimensional transthoracic echocardiogram with color flow and Doppler was performed. The study quality was technically good. Comparison is made with the echocardiogram of 07/29/19. The patient was in normal sinus rhythm during the exam. Left Ventricle: The left ventricle is normal in size. There is normal left ventricular wall thickness. The ejection fraction is estimated to be 60-65%. There are no focal wall motion abnormalities. Diastolic parameters suggest a relaxation abnormality of the left ventricle, consistent with probable normal filling pressures. Right Ventricle: The right ventricle is normal in size and function. Atria: The left atrium is moderately dilated. The right atrium is severely dilated. There is no Doppler evidence for an atrial septal defect. Mitral Valve: There is a flat closure plane of the the mitral valve leaflets. There is trace mitral regurgitation. Aortic Valve: The aortic valve is trileaflet. The aortic valve opens well. No aortic regurgitation is present. Tricuspid Valve: The tricuspid valve is normal in structure and function. There is trace tricuspid regurgitation. The right ventricular systolic pressure is estimated to be at least 20 mmHg based on an estimated right atrial pressure of 3 mm Hg. Pulmonic Valve: The pulmonic valve is normal in structure and function. There is trace pulmonic regurgitation. Great Vessels: The aortic root is normal size. The ascending aorta is moderate-severely enlarged. This is unchanged compared to the previous study. The pulmonary artery is normal size. The IVC is of normal diameter and collapses greater than 50% with a sniff. This suggests a low right atrial pressure of 3 mm Hg. Pericardium/ Pleura There is no pericardial effusion. There is no pleural effusion. MMode/2D Measurements & Calculations LVIDd: 5.1 cm LVOT diam: 2.6 cm LVIDs: 3.2 cm Ao root diam: 3.9 cm FS: 37.1 % asc Aorta Diam: 4.6 cm EPSS: 0.74 cm IVSd: 0.88 cm LVPWd: 0.93 cm LV rdz. diameter/BSA (cm/m^2): 2.2 LV sys. diameter/BSA (cm/m^2): 1.4 LA dimension: 3.8 cm RA long axis: 5.6 cm LA A2 area: 24.6 cm2 RA area: 28.0 cm2 LA A4 area: 25.8 cm2 RA vol: 119.6 ml LA length (vol): 6.8 cm RA : 51.9 ml/m2 LA vol: 79.2 ml IVC diam: 1.4 cm LA vol index: 34.4 ml/m2 RVD1 (basal): 4.5 cm RVD2 (mid): 4.3 cm TAPSE: 2.4 cm Doppler Measurements & Calculations Ao V2 max: 118.5 cm/sec LVOT Max Agustin: 109.1 cm/sec Ao V2 mean: 85.6 cm/sec LV V1 max P.8 mmHg Ao max P.6 mmHg LV V1 VTI: 24.8 cm Ao mean P.2 mmHg MURALI(I,D): 5.4 cm2 Ao V2 VTI: 23.8 cm MURALI(V,D): 4.8 cm2 sev ratio: 1.0 MURALI indexed to BSA (cm^2/m^2): 2.3 MV E max agustin: 51.9 cm/sec TR max agustin: 205.0 cm/sec MV A max agustin: 58.5 cm/sec TR max P.8 mmHg MV E/A: 0.89 PA V2 max: 50.5 cm/sec Med Peak E' Agustin: 5.3 cm/sec PA V2 mean: 41.2 cm/sec E/E' med: 9.9 PA mean P.71 mmHg Lat Peak E' Agustin: 5.9 cm/sec PA pr(Accel): 27.6 mmHg E/E' lat: 8.8 E/e' average: 9.3 MV dec time: 0.25 sec SV(LVOT): 128.6 ml Reading Physician:07:17 PM
== END ==
PROVIDERS: PCP Family Medicine; Referring Provider Internal Medicine Cardiovascular Disease; Visit Provider Internal Medicine Cardiovascular Disease
DX: I77.89 Other specified disorders of arteries and arterioles (principal)
CPT/HCPCS: 93306

== ENCOUNTER → 2020-11-20 09:00 | Outpatient (CLI) | payer OTHER, SELFPAY ==
[2020-11-20 11:27] LABS: COVID19 -Nasal RAPID Negative (Negative)
== END ==
PROVIDERS: PCP Family Medicine; Referring Provider Physician Assistant; Visit Provider Physician Assistant
DX: Z01.812 Encounter for preprocedural laboratory examination (principal); Z20.822 Contact with and (suspected) exposure to COVID-19
CPT/HCPCS: 87635

== ENCOUNTER 2020-11-23 14:55 | Observation (INO) | payer OTHER, SELFPAY ==
[2020-11-15 09:27] VITALS: BMI 33.2
[2020-11-22] VITALS (12 sets, daily range): BP systolic 93–116; BP diastolic 58–75; PULSE 56–89; RESP 12–18; TEMP 36–36.8; O2SAT 90–98; BMI 33.2
--- NOTE | 2020-11-22 06:30 | DI.RAD.S_ITS ---
PROCEDURE: XR KNEE LT 1TO2V INDICATIONS: post op total knee TECHNIQUE: 2 view(s) of the knee acquired. COMPARISON: None. FINDINGS: Bones: Patient is status post knee joint arthroplasty. Hardware components are in expected positions. Visualized bony structures are intact. Soft tissues: Overlying postoperative changes are noted. IMPRESSION: Expected postoperative appearance Dictated by: Ehsan Thomas M.D. on 11/22/2020 at 13:13 Approved by: Ehsan Thomas M.D. on 11/22/2020 at 13:13
[2020-11-22] MEDS: ACETAMINOPHEN 325 MG TABLET 975 MG PO (08:06)
[2020-11-22] MEDS: PREGABALIN 75 MG CAPSULE PO (08:07)
[2020-11-22] MEDS: CELECOXIB 200 MG CAPSULE PO (08:07)
[2020-11-22] MEDS: LACTATED RINGERS 1,000 ML 42 ML IV ×2 (08:16→12:51)
--- NOTE | 2020-11-22 09:49 | PM.PREOP ---
Pre-operative Note COVID-19 COVID-19 status: Negative Result date/Date tested (Pos, Neg/Pending): 11/20/20 Interval Note History & Physical reviewed/Exam performed by Physician: Yes Changes to H&P: No
--- NOTE | 2020-11-22 10:15 | PM.OP.1 ---
Operative Date/Time/Diagnoses Date of procedure: 11/22/20 Time of procedure: 12:38 Pre-op diagnosis: Left knee osteoarthritis Post-op diagnosis: same Procedure & Clinicians Procedure: Left total knee replacement Same procedure as scheduled: Yes Indications: The patient has had progressively worsening left knee pain with radiographic changes consistent with arthritis. Non-operative management has failed and the patient has requested total knee replacement. The risks, benefits and alternatives to surgery were discussed with the patient prior to proceeding. Risks discussed included, but were not limited to, failure to relieve pain, stiffness, infection, nerve damage, deep venous thrombosis, pulmonary embolism, stroke, coma, heart attack, permanent paralysis and , as well as the potential need for eventual revision of the prosthetic. Surgeon: Guy Gann Field Laboratory Operator: Jame Sepulveda Click Yes if Unassisted: No Anesthesia Type: General, Spinal and Local Operative Notes Findings: Significant medial and patellofemoral osteoarthritis. Closure Type: primary Specimen(s): none sent Prosthetic devices, grafts, tissues, transplants, or devices: Implants used in this procedure were manufactured by the [employer] and [employer] and included the BCS II Journey total knee replacement with a size 8 Oxinium femoral component, a size 7 non porous tibial base plate, a 9 mm cross-linked polyethylene tibial insert, and a 38 mm oval Sydney II patellar component. Applied: implant(s) Estimated Blood Loss (mL): 25 Blood products transfused: none Tourniquet time (min): 54 Procedure in detail: The patient was seen in the pre-operative area, where the left knee was identified as the operative site and this was marked with my initials. The patient received pre-operative antibiotics, and was taken to the operating room and placed on the operative table in the supine position. After satisfactory anesthesia, a counter waitress/waiter out was performed. The left leg was encircled with a tourniquet about the proximal thigh, and the leg was prepared from the toes to the tourniquet with ChloroPrep in the usual fashion and draped through sterile drapes. The leg was elevated and exsanguinated with Eschmark bandage and the tourniquet inflated to 250 mmHg pressure. The knee was approached through an approximately 18 cm incision centered over the patella and carried into the knee through a medial parapatellar arthrotomy. The anterior osteophytes and soft tissues were removed. The rotational landmarks of Long's line and the transepicondylar axis were marked on the femur with electrocautery, and intramedullary guide holes for the femur and tibia were created. The distal femoral cut was made in 6 degrees of valgus using the intramedullary guide at the primary cut setting. The proximal tibial cut was then made using the intramedullary guide, taking 9 mm of bone off the less involved side. The extension gap was checked and the rotation of the femoral component confirmed with the gap balancing blocks. The anterior, posterior and chamfer cuts were then made. The posterior osteophytes and soft tissues were then removed. The posterior capsule was injected with part of a mixture of 60 ml 0.25% Marcaine mixed with 20 ml Exparel and 4 mg of morphine for post-operative pain control. The remainder of this mixture was injected into the capsule and subcutaneous tissues during cement curing. The tibia was prepared with the rotation set by an extra medullary guide. Trial tibial and femoral components were then placed and the intercondylar notch cut through the femoral trial. Range of motion was 0-135 degrees, with good stability throughout the range. The patella was then cut to accommodate the patellar prosthetic. There was no need for a lateral release. The trials were then removed, and the femoral hole plugged with a bone plug. The bone was prepared with pulsatile lavage, and dried with a sponge. Cement was applied and the final prosthetics placed. Excess cement was removed during and after cement curing. After confirming there was no extruded cement posteriorly, the final tibial insert was placed. The knee was copiously irrigated and the tourniquet deflated. Hemostasis was obtained. The capsule was closed with interrupted # 2 polyester sutures. The subcutaneous layer was closed with 3-0 Vicryl, and the skin with a running 3-0 V-Lock suture and Dermabond. An Aquacel Ag dressing was applied and the patient was taken to recovery having tolerated the procedure well. Complications: none Post-operative Condition: stable Disposition: PACU Plan for aftercare: The patient will be maintained on a standard total knee replacement protocol with weight bearing as tolerated. The patient will receive aspirin and sequential compression devices for DVT prophylaxis. The patient will be discharged home when safe for the home environment.
[2020-11-22] MEDS: CEFAZOLIN 2 GM/100 ML FROZ.PIGGY IV (10:47)
--- NOTE | 2020-11-22 11:20 | SUR.OPER ---
Supine on padded OR bed. Pillow under head, arms secured on padded armboards <90 degree abduction. Safety belt across torso. Non-operative leg secured with tape over blanket over lower leg. Operative leg secured in DeMayo/Ousmane positioner. Foam padded brace at thigh of operative leg.
[2020-11-22] MEDS: BUPIVACAINE 0.25% W/ EPI (PF) 10 ML VIAL 20 ML INJ (11:24)
[2020-11-22] MEDS: MORPHINE 4 MG/ML INJ INJ (11:25)
[2020-11-22] MEDS: BUPIVACAINE LIPOSOME 266 MG/20 ML VIAL INJ (11:25)
[2020-11-22] MEDS: TRANEXAMIC ACID 1,000 MG VIAL 1000 MG INJ ×2 (11:28→12:08)
[2020-11-22] MEDS: LACTATED RINGERS 1,000 ML 100 ML IV ×2 (13:28→23:29)
[2020-11-22] MEDS: IBUPROFEN 400 MG TABLET PO ×3 (13:31→20:29)
--- NOTE | 2020-11-22 13:41 | PC.NURSE ---
Patient alert, oriented, denies pain and nausea. Sensation and cap refill within normal limits, patient able to wiggle toes but unable to left leg at this time. SCD's on, oriented to room and call light.
[2020-11-22] MEDS: ACETAMINOPHEN 325 MG TABLET 650 MG PO ×2 (14:51→20:38)
--- NOTE | 2020-11-22 16:24 | PT.IIE ---
Current Diagnoses Unilateral primary osteoarthritis, left knee (11/22/20) Surgery Performed Operation Date: 11/22/20 10:15 Actual Procedures p Total Knee Arthroplasty(Left) - Guy Gann MD Surgical History (Last Updated 11/15/20 @ 10:28 by Nadia Maki RN) H/O vasectomy (~1995) History of adenoidectomy History of shoulder surgery Hx of arthroscopic knee surgery Hx of fusion of cervical spine (~1995) Hx of heart artery stent (07/28/19) Status post laminectomy (~2011) Medical History (Last Updated 11/15/20 @ 10:53 by Nadia Maki RN) Ascending aorta enlargement BPH (benign prostatic hyperplasia) CAD (coronary artery disease) Degenerative disc disease Degenerative joint disease of knee Hearing loss Heart attack High cholesterol History of colon polyps Kidney stones Non-STEMI (non-ST elevated myocardial infarction) (07/28/19) PEG (obstructive sleep apnea) Osteoarthritis Pre-diabetes RBBB (right bundle branch block) Ribs, multiple fractures (~2005) Seasonal allergies Physical Therapy Inpatient Evaluation/Re-Eval M1 PT/OT-IP Prior Functional Status Start: 11/22/20 13:31 Freq: NEEDED Status: Active Protocol: Document 11/22/20 16:24 AW (Rec: 11/22/20 16:48 AW [id number]) Medical Review Prior Functional Status Medical History Reviewed Yes Communication WNL. Pt is an effective verbal communicator Mobility and Gait Pt has chronic bilateral knee pain limiting his mobility but is able to walk ~1/4 mile without rest. Activities of Daily Living and IADL's Independent including driving. Social History Household Members spouse Living Arrangements House Number of Floors (Floors) One Floor Number of Stairs To Enter/Railing? Ramped entry. Alternate entrance through garage has 5 KEVIN with left rail ascending. 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 He lives in [place] with his , Ankur, who is retired and able to assist as needed at discharge. 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 M2 PT-IP Current Condition Start: 11/22/20 13:31 Freq: NEEDED Status: Active Protocol: Document 11/22/20 16:24 AW (Rec: 11/22/20 16:48 AW [id number]) Physical Therapy Current Condition Current Condition Evaluation Date 11/22/20 Treatment Diagnosis L TKA; difficulty in walking Weight Bearing Status Weight Bearing Status Weight Bear as Tolerated M3 PT-IP Subjective Start: 11/22/20 13:31 Freq: NEEDED Status: Active Protocol: Document 11/22/20 16:24 AW (Rec: 11/22/20 16:48 AW [id number]) Subjective Physical Therapy Visit Type Type Initial Evaluation Visit Start Time 15:42 Visit Stop Time 16:24 Total Visit Minutes 42 Physical Therapy Visit Comments Patient Comments Pt is willing to participate with PT Patient Goals Pt wants to be able to walk longer distance and on uneven ground with less pain Therapy Pain Assessment Pain When Pain Assessed During Mobility Pain Present Pain Present Pain Reported Location left thigh Scale Used not quantified Pain Behaviors Facial Grimacing,Restlessness Pain Management Techniques Elevation,Timing of Activity with Medications M4 PT-IP Mobility and Gait Start: 11/22/20 13:31 Freq: NEEDED Status: Active Protocol: Document 11/22/20 16:24 AW (Rec: 11/22/20 16:48 AW [id number]) PT-Bed Mobility Assessment Supine to Sit Supine to Sit Standby Assistance Scooting Scooting to Edge of Bed Standby Assistance PT-Transfer Assessment Sit to and From Stand Sit to and from Stand Contact Guard Assistance,Use of Upper Extremities Equipment Transfer Assistive Device Gait Belt,Front Wheeled Walker Orthotic/Prosthetic Devices or Brace: No Transfers Transfer Destination Chair Transfer Technique Stand Step Pivot Transfer Ability Level of Assist Standby Assistance,Use of Upper Extremities Comments Mobility Comments Pt was lying in bed as PT arrived. BP 98/69 HR 53. Pt denied lightheadedness, nausea . Pt completed supine to sit with HOB elevated 30 degrees as he would at home. With bed raised a few inches from lowest position (to replicate home environment), pt stood CGA and used FWW for lateral weight shifting. BP was stable and pt continued to deny symptoms. He used the FWW and ambulated CGA to the toilet but was unable to void. Pt then used the FWW to ambulate to the chair, transferring SBA . Pt was positioned with call light and all needs in reach. Gait Assessment Gait Gait Assistance Required: Contact Guard Assist Distance (Feet) 15 Able to Maintain Weight Bearing Status Yes During Gait Assistive Devices Assistive Device Gait Belt,Front Wheeled Walker Orthotic/Prosthetic Devices or Brace: No Gait Deviations General Gait Pattern Decreased Stride Length, Decreased Feet Clearance,Step- to Gait Factors Limiting Gait Function Factors Limiting Gait Function Decreased Sensation,Decreased Strength,Limited Range of Motion,Pain Comments Gait Comments See mobility comments for details. Stair Climbing Assessment Comments Stair Climbing Comments Not assessed. Pt has ramped entry at home. PT-Balance Assessment Sitting Balance and Reactions Static Sitting Balance Ability Normal Dynamic Sitting Balance Ability Normal Standing Balance and Reactions Static Standing Balance Ability Good Dynamic Standing Balance Ability Good Device Used FWW Balance Tests Single Limb Standing RLE 8 sec; LLE 1 sec with FWW M5 PT-IP Objective Assessments Start: 11/22/20 13:31 Freq: NEEDED Status: Active Protocol: Document 11/22/20 16:24 AW (Rec: 11/22/20 16:48 AW [id number]) Orientation Orientation/Cognition Level of Alertness Alert Orientation Name,Day of Week,Place, Situation Language Function Ability No Deficits Noted Safety Awareness Understands Safety Issues Memory Description No Deficits Noted Gross Range of Motion Lower Extremity ROM Assessment Left Impaired Impairments AROM knee 5-85 Strength Lower Extremity Strength Assessment Left Impaired Hip 4-/5 Comments Strength Comments RLE grossly 4+/5 Sensation Assessment Sensation Gross Sensation Right LE Impaired,Left LE Impaired Light Touch Impaired Sensation Description Numbness Comments Sensation Comments Pt reports numbness proximally from pelvis to mid thigh M6 PT-IP Treatment Start: 11/22/20 13:31 Freq: NEEDED Status: Active Protocol: Document 11/22/20 16:24 AW (Rec: 11/22/20 16:48 AW [id number]) Physical Therapy Treatment Exercises Exercises Ankle Pumps,Quad Sets,Heel Slides,Passive Knee Extension Hang Education Education Provided Weight Bearing Status,Post-Op Packet,Safety Other Treatments Other Treatment Performed Provided education on role of PT, plan of care, weightbearing status, and safe use of FWW. Pt brought in a youth size FWW from home but it does not fit him. Provided list of DME vendors in [facility] and states she will procure a standard sized FWW. M7 PT-IP Assessment and Plan Start: 11/22/20 13:31 Freq: NEEDED Status: Active Protocol: Document 11/22/20 16:24 AW (Rec: 11/22/20 16:48 AW [id number]) PT Summary Assessment and Plan Potential Rehabilitation Potential Good Status of Condition at Evaluation Evolving Summary Impairments Pain,ROM,Strength,Balance, Sensation,Bed Mobility, Transfers,Gait Assessment Summary Juan is a 65 yo man seen for PT evaluation on POD0 following L TKA. 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 CLOF: Pt requires CGA for ambulation with FWW. PT anticipates he will progress during his hospital stay and be safe for discharge home with his assisting and outpatient PT once medically stable. OP PT is scheduled to begin next Sunday. Goals Bed Mobility Goal Independent Transfer Goal Independent,Front Wheeled Walker Gait Goal Independent,Front Wheel Walker Gait Distance 200 Frequency of Treatment Frequency Of Treatment Twice a Day Treatment Plan Physical Therapy Treatment Plan Bed Mobility Training,Transfer Training,Gait Training, Therapeutic Exercise,Balance Retraining,Post Op Education, Discharge Planning,Hot or Cold Pack,Neuromuscular Re-ed Other Recommendations and Next Treatment gait training with FWW; Focus determine if needs FWW dispensed Precautions Other Precautions WBAT LLE Recommendations To Nursing Amount of Assist Needed 1 Person Assist Discharge Recommendations PT Discharge Recommendations Home with Assistance, Outpatient PT Equipment Needed for Home Before FWW if unable to procure one Discharge from outside vendor Transportation Needs at Discharge Private Vehicle
[2020-11-22] MEDS: OXYCODONE IR 5 MG TABLET PO ×2 (17:50→23:22)
[2020-11-22] MEDS: DOCUSATE 100 MG CAPSULE PO (20:31)
[2020-11-22] MEDS: ASPIRIN EC 81 MG TABLET PO (20:31)
[2020-11-22] MEDS: TRAZODONE 100 MG TABLET PO (21:01)
[2020-11-22] MEDS: ROSUVASTATIN 10 MG TABLET 40 MG PO (21:01)
[2020-11-22] MEDS: MELATONIN 3 MG TABLET PO (21:01)
[2020-11-22] MEDS: valACYclovir 500 MG TABLET PO (21:10)
[2020-11-23] VITALS (7 sets, daily range): BP systolic 96–107; BP diastolic 51–66; PULSE 58–81; RESP 17–19; TEMP 36.4–36.8; O2SAT 94–96
[2020-11-23] MEDS: IBUPROFEN 400 MG TABLET PO ×6 (01:18→20:47)
[2020-11-23] MEDS: OXYCODONE IR 5 MG TABLET PO (04:55)
[2020-11-23 05:18] LABS: Hematocrit 37.2 % (41-53); Hemoglobin 12.4 g/dL (13.5-17.5)
--- NOTE | 2020-11-23 07:33 | P.DS_ITS ---
History of Present Illness History of Present Illness Date Patient Seen: 11/23/20 Time Patient Seen: 07:33 Chief complaint: Left Total Knee Arthroplasty *OPB* Narrative: The history and physical is contained in the chart previously completed note. Please refer to that note for this information. Discharge Providers Provider Discharge Date: 11/23/20 Primary care physician: Torin Newberry MD Consults: 11/22/20 13:04 Consult to Discharge Planning Routine Comment: Consult to Physical Therapy Evaluate & Treat Comment: Physician Instructions: postop TKA protocol Discharge provider: Guy Gann MD Summary Hospital Course Discharge Diagnosis: 1. Left knee osteoarthritis 2. Post hemorrhagic anemia Hospital Course: The patient was admitted to the hospital and taken directly to the operating room on November 22, 2020. He underwent a left total knee replacement without complications. On postoperative day 1 his pain control was reasonably good. He had a mild post hemorrhagic anemia which did not require specific treatment. He had made reasonable progress ambulating on the evening of surgery. At the time of this dictation it is anticipated he will make enough p rogress to be discharged later today. Status at Discharge Cognitive/behavioral status at discharge: oriented Functional status at discharge: uses cane/walker Overall status at discharge: patient is progressing back to baseline Time Spent with Patient Time spent: Less than 30 minutes Exam Vital Signs (past 8 hours): - 11/22/20 23:55 11/23/20 05:07 Temperature 97.4 F L 97.8 F Pulse Rate 58 L 58 L Respiratory Rate 16 18 Blood Pressure 96/61 100/51 L Pulse Oximetry 98 94 Oxygen Delivery Method Room Air Oxygen Flow Rate 0 Narrative Exam Narrative: Left knee wound is dressed with no drainage on the bandage. Calf is soft. Light touch and motion are intact in the left lower extremity. Objective Labs Result Diagrams: 11/23/20 05:00 Labs: Laboratory Results - last 24 hr 11/23/20 05:00 Hgb 12.4 L Hct 37.2 L [facility] Medical History (Updated 11/15/20 @ 10:53 by Nadia Maki RN) Ascending aorta enlargement BPH (benign prostatic hyperplasia) CAD (coronary artery disease) Degenerative disc disease Degenerative joint disease of knee Hearing loss Heart attack High cholesterol History of colon polyps Kidney stones Non-STEMI (non-ST elevated myocardial infarction) (07/28/19) PEG (obstructive sleep apnea) Osteoarthritis Pre-diabetes RBBB (right bundle branch block) Ribs, multiple fractures (~2005) Seasonal allergies Surgical History (Updated 11/15/20 @ 10:28 by Nadia Maki RN) H/O vasectomy (~1995) History of adenoidectomy History of shoulder surgery Hx of arthroscopic knee surgery Hx of fusion of cervical spine (~1995) Hx of heart artery stent (07/28/19) Status post laminectomy (~2011) Family History Father Stroke Mother Hypertension Brother Heart disease Stroke Social History household members: spouse Smoking Status: Never smoker alcohol intake: current Discharge Assessment & Plan Assessment and Plan Assessment: The patient is stable postoperative day 1 status post left total knee replacement. He has a mild post hemorrhagic anemia which should not require specific treatment. He has made reasonable progress with ambulation and the anticipation is he will be ready for discharge today. Plan of Treatment: Physical therapy this morning with likely discharge later in the morning or early afternoon. He has a follow-up at my office in 2 weeks. Discharge prescriptions have been sent in for oxycodone and Vistaril. He will be instructed in the short-term use of ibuprofen and Tylenol for additional pain control. He also be instructed in the use of low-dose aspirin twice a day for DVT prophylaxis. Discharge Plan Discharge Plan Patient Disposition: Home Discharge orders & Medications Discharge Orders: Discharge (Order); Ordered 11/23/20 Ordered By: Guy Gann Prescriptions: New aspirin 81 mg Tablet,Delayed Release (Dr/Ec) 81 mg PO BID 42 Days Qty: 84 RF: 0 ibuprofen 400 mg Tablet 400 mg PO Q4HR 30 Days RF: 0 oxycodone 5 mg Tablet 5 mg PO Q4H PRN (Reason: Pain, Moderate (4-6)) Qty: 40 RF: 0 hydroxyzine pamoate 25 mg Capsule 25 mg PO Q6HR PRN (Reason: Nausea) Qty: 30 RF: 0 Continued tramadol 50 mg tablet 50 mg PO BID PRN (Reason: pain) Qty: 60 RF: 0 ezetimibe 10 mg Tablet 10 mg PO DAILY RF: 0 rosuvastatin 40 mg Tablet 40 mg PO DAILY RF: 0 acetaminophen [Tylenol] 325 mg capsule 650 mg PO Q6H PRN (Reason: Pain) RF: 0 losartan 25 mg tablet 12.5 mg PO DAILY RF: 0 metoprolol succinate [Toprol XL] 25 mg tablet extended release 24 hr 25 mg PO DAILY RF: 0 nitroglycerin 0.4 mg tablet, sublingual 0.4 mg SL Q5M PRN (Reason: Chest Pain) RF: 0 tamsulosin 0.4 mg capsule 0.4 mg PO DAILY RF: 0 trazodone 100 mg tablet 100 mg PO DAILY RF: 0 valacyclovir 500 mg tablet 500 mg PO DAILY RF: 0 Discontinued aspirin [Adult Aspirin Regimen] 81 mg tablet,delayed release (DR/EC) 81 mg PO DAILY RF: 0 Follow up/Referrals: Guy Gann MD [Physician] - 2 Weeks Torin Newberry MD [Primary Care Provider] - Diet/Activity/Treatments Diet: Diet as Tolerated and Regular Activity: You may bear weight as tolerated on your left leg. Cold/Heat Therapy: Apply ice to the left knee for 15 minutes every hour as needed for pain control. Skin/Wound/Dressing Care Report to your healthcare provider any signs of infection, such as:: chills, fever, night sweats, increased pain, unusual drainage and unusual redness Dressing: You may remove the Heath wrap in 3 days and shower normally with the deeper dressing in place. Keep the deeper dressing in place until your follow- up. If the central strip of the deeper dressing becomes saturated with either water or blood, please contact the office to have it changed. Visit Report/Discharge Packet Instructions: DI for Knee Replacement Stand Alone Forms: Surgery Discharge Discharge Data Primary Care Provider: Torin Newberry Attending Provider: Guy Gann Quality VTE Deep Vein Thrombosis/Pulmonary Embolism Present on Admission: No
[2020-11-23] MEDS: TAMSULOSIN 0.4 MG CAPSULE PO (08:53)
[2020-11-23] MEDS: DOCUSATE 100 MG CAPSULE PO ×2 (08:54→20:48)
[2020-11-23] MEDS: ASPIRIN EC 81 MG TABLET PO ×2 (08:54→20:48)
[2020-11-23] MEDS: hydrOXYzine pamoate 25 MG CAPSULE PO ×2 (08:56→14:44)
[2020-11-23] MEDS: ROSUVASTATIN 10 MG TABLET 40 MG PO (08:58)
[2020-11-23] MEDS: ACETAMINOPHEN 325 MG TABLET 650 MG PO ×3 (08:59→20:48)
[2020-11-23] MEDS: METOPROLOL ER 25 MG TABLET PO (08:59)
[2020-11-23] MEDS: OXYCODONE IR 10 MG TABLET PO ×4 (09:00→17:46)
[2020-11-23] MEDS: LOSARTAN 25 MG TABLET 12.5 MG PO (09:01)
[2020-11-23] MEDS: EZETIMIBE 10 MG TABLET PO (09:01)
[2020-11-23] MEDS: TRAZODONE 100 MG TABLET PO (09:01)
[2020-11-23] MEDS: valACYclovir 500 MG TABLET PO (09:01)
[2020-11-23] MEDS: polyethylene glycoL 3350 17 GM POWD.PACK PO (09:48)
--- NOTE | 2020-11-23 11:00 | PT.IPTN ---
Current Diagnoses Unilateral primary osteoarthritis, left knee (11/22/20) Surgery Performed Operation Date: 11/22/20 10:15 Actual Procedures p Total Knee Arthroplasty(Left) - Guy Gann MD Physical Therapy Treatment Note M2 PT-IP Current Condition Start: 11/22/20 13:31 Freq: NEEDED Status: Active Protocol: Document 11/22/20 16:24 AW (Rec: 11/22/20 16:48 AW [id number]) Physical Therapy Current Condition Current Condition Evaluation Date 11/22/20 Treatment Diagnosis L TKA; difficulty in walking Weight Bearing Status Weight Bearing Status Weight Bear as Tolerated M3 PT-IP Subjective Start: 11/22/20 13:31 Freq: NEEDED Status: Active Protocol: Document 11/23/20 11:00 AB (Rec: 11/23/20 12:42 AB [id number]) Subjective Physical Therapy Visit Type Type Treatment Note Visit Start Time 11:00 Visit Stop Time 11:30 Total Visit Minutes 30 Number of MODEL BUILDER Visits 0 Physical Therapy Visit Comments Patient Comments pt is agreeable to do PT Therapy Pain Assessment Pain When Pain Assessed At Rest Pain Present Pain Present Pain Reported Location Left Knee Intensity 6 Scale Used Numeric (0 - 10) Pain Behaviors Guarding,Holding Area Pain Management Techniques Apply Cold,Elevation, Modification of Treatment,Re- positioning,Timing of Activity with Medications M4 PT-IP Mobility and Gait Start: 11/22/20 13:31 Freq: NEEDED Status: Active Protocol: Document 11/23/20 11:00 AB (Rec: 11/23/20 12:42 AB [id number]) PT-Transfer Assessment Sit to and From Stand Sit to and from Stand Minimal Assistance Equipment Transfer Assistive Device Gait Belt Orthotic/Prosthetic Devices or Brace: No Comments Mobility Comments pt sitting on chair. c/o increase knee pain and stated that he is not ready to go home. stated that he has to walk up a ramp ~ 45 ft and another 35-40 ft to get into the house. spouse came in and brought in pt's FWW. adjusted FWW. completed sit to stand from chair min A and cues. pt ambulated in room min A ~ 20 ft using FWW. (+) L knee buckling with first initial steps. provided verbal and tactile cues for quad activation and was able to stabilize L knee better afterwards. pt c/o increase L knee pain affecting mobiltiy and requires increase time to complete task. pt ambulated back to the chair and refused further ambulation. postioned on chair. call light and table placed within reach. ice pack provided. informed spouse to positioned chair in between walkway when pt goes home for pt to rest if needed. spouse understood and agreed . caregiver training set up with pt and pt's spouse: ~ 1-130 pm later today. Gait Assessment Gait Gait Assistance Required: Minimum Assistance,1 Person Assist Distance (Feet) 20 Able to Maintain Weight Bearing Status Yes During Gait Assistive Devices Assistive Device Gait Belt,Front Wheeled Walker Orthotic/Prosthetic Devices or Brace: No Gait Deviations General Gait Pattern Antalgic,Decreased Stride Length,Decreased Feet Clearance,Step-to Gait Factors Limiting Gait Function Factors Limiting Gait Function Decreased Activity Tolerance, Decreased Strength,Limited Range of Motion,Pain,Poor Balance,Poor Safety Awareness M5 PT-IP Objective Assessments Start: 11/22/20 13:31 Freq: NEEDED Status: Active Protocol: Document 11/22/20 16:24 AW (Rec: 11/22/20 16:48 AW [id number]) Orientation Orientation/Cognition Level of Alertness Alert Orientation Name,Day of Week,Place, Situation Language Function Ability No Deficits Noted Safety Awareness Understands Safety Issues Memory Description No Deficits Noted Gross Range of Motion Lower Extremity ROM Assessment Left Impaired Impairments AROM knee 5-85 Strength Lower Extremity Strength Assessment Left Impaired Hip 4-/5 Comments Strength Comments RLE grossly 4+/5 Sensation Assessment Sensation Gross Sensation Right LE Impaired,Left LE Impaired Light Touch Impaired Sensation Description Numbness Comments Sensation Comments Pt reports numbness proximally from pelvis to mid thigh M6 PT-IP Treatment Start: 11/22/20 13:31 Freq: NEEDED Status: Active Protocol: Document 11/23/20 11:00 AB (Rec: 11/23/20 12:42 AB [id number]) Physical Therapy Treatment Exercises Exercises Heel Slides Education Education Provided Safety M7 PT-IP Assessment and Plan Start: 11/22/20 13:31 Freq: NEEDED Status: Active Protocol: Document 11/23/20 11:00 AB (Rec: 11/23/20 12:42 AB [id number]) PT Summary Assessment and Plan Potential Rehabilitation Potential Good Summary Impairments Pain,ROM,Strength,Balance, Coordination,Bed Mobility, Transfers,Gait,Activity Tolerance Progress Towards Goals Slow Progress due to Pain Assessment Summary pt requiring min A with mobility and unable to tolerate much ambulation with c/o increase L knee pain. caregiver training set up today at ~ 1-130 pm. will continue to assess progress. Goals Bed Mobility Goal Independent Transfer Goal Independent,Front Wheeled Walker Gait Goal Independent,Front Wheel Walker Gait Distance 200 Days to Meet Goals 5 Frequency of Treatment Frequency Of Treatment Twice a Day Treatment Plan Physical Therapy Treatment Plan Bed Mobility Training,Transfer Training,Gait Training, Therapeutic Exercise,Balance Retraining,Post Op Education, Discharge Planning,Hot or Cold Pack,Neuromuscular Re-ed Precautions Other Precautions WBAT LLE Recommendations To Nursing Amount of Assist Needed 1 Person Assist Discharge Recommendations PT Discharge Recommendations Home with Assistance, Outpatient PT Transportation Needs at Discharge Private Vehicle
--- NOTE | 2020-11-23 11:04 | CM.DANOTE ---
DCP: Case received, EMR reviewed and met with patient. Introduced self and role. Was able to obtain information from patient regarding his baseline activity status prior to surgery, as well as his current living situation. DCP assessment completed with information currently available. Patient is a 65 year old male who admitted yesterday morning to the care of the orthopedic team. PCP: Dr. Newberry Payer: Casimiro Smith. Patient came to the hospital via private vehicle for a surgical procedure. He had a left total knee arthroplasty. Surgery was performed yesterday am. Patient has history of osteoarthritis of his left knee. Met with patient in his room. He is alert and oriented, pleasant. He resides in [place] with his spouse, Ankur. He is retired. He is retired , he was in the [employer]. [facility] [place] [facility] needs. Patient is independent at his baseline. He indicated that he does have a ramp to get into his front door, as his had surgery in the past, and they had this set up. He has not used any DME supplies prior to surgery. He is set up to go to [facility] for outpatient P.T. in [place]. P: Patient has discharge orders for home today. He will be working with P.T. again before discharge. Nguyen Garcia RN/Medical Territory Manager
--- NOTE | 2020-11-23 12:44 | PC.NURSE ---
Day shift: Called Dr Gann and left message that Pt is not ready to d/c today. ([id number])
--- NOTE | 2020-11-23 13:20 | PT.IPTN ---
Current Diagnoses Unilateral primary osteoarthritis, left knee (11/23/20) Surgery Performed Operation Date: 11/22/20 10:15 Actual Procedures p Total Knee Arthroplasty(Left) - Guy Gann MD Physical Therapy Treatment Note M2 PT-IP Current Condition Start: 11/22/20 13:31 Freq: NEEDED Status: Active Protocol: Document 11/22/20 16:24 AW (Rec: 11/22/20 16:48 AW [id number]) Physical Therapy Current Condition Current Condition Evaluation Date 11/22/20 Treatment Diagnosis L TKA; difficulty in walking Weight Bearing Status Weight Bearing Status Weight Bear as Tolerated M3 PT-IP Subjective Start: 11/22/20 13:31 Freq: NEEDED Status: Active Protocol: Document 11/23/20 13:20 AB (Rec: 11/23/20 15:13 AB [id number]) Subjective Physical Therapy Visit Type Type Treatment Note Visit Start Time 13:20 Visit Stop Time 13:50 Total Visit Minutes 30 Number of BREAD WRAPPING MACHINE FEEDER Visits 0 Physical Therapy Visit Comments Patient Comments pt is agreeable to do PT Therapy Pain Assessment Pain When Pain Assessed At Rest Pain Present Pain Present Pain Reported Location Left Knee Intensity 6 Scale Used Numeric (0 - 10) Pain Behaviors Guarding Pain Management Techniques Apply Cold,Distraction, Modification of Treatment, Timing of Activity with Medications M4 PT-IP Mobility and Gait Start: 11/22/20 13:31 Freq: NEEDED Status: Active Protocol: Document 11/23/20 13:20 AB (Rec: 11/23/20 15:13 AB [id number]) PT-Bed Mobility Assessment Supine to Sit Supine to Sit Minimal Assistance Sit to Supine Sit to Supine Minimal Assistance PT-Transfer Assessment Sit to and From Stand Sit to and from Stand Contact Guard Assistance,1 Person Assistance,Use of Upper Extremities Equipment Transfer Assistive Device Gait Belt,Front Wheeled Walker Orthotic/Prosthetic Devices or Brace: No Comments Mobility Comments pt sitting on chair and agreed to do PT. spouse in room for caregiver training. educated spouse on how to use safety belt and how to assist pt. spouse was able to to put safety belt on pt and assisted pt with sit to stand and ambulation in room using FWW ~ 45 ft CGA. pt sat on EOB and completed sit<>supine min A for LLE mobility and spouse was able to assist pt with bed mobility and with HOB elevated. pt stated that he has an adjustable bed at home. pt requested to stay in bed and completed sit to supine with spouse assisting. positioned pt in bed. call light and table placed within reach. Gait Assessment Gait Gait Assistance Required: Contact Guard Assist Distance (Feet) 45 Able to Maintain Weight Bearing Status Yes During Gait Assistive Devices Assistive Device Gait Belt,Front Wheeled Walker Orthotic/Prosthetic Devices or Brace: No Gait Deviations General Gait Pattern Antalgic,Decreased Stride Length,Decreased Feet Clearance,Step-to Gait Factors Limiting Gait Function Factors Limiting Gait Function Decreased Activity Tolerance, Decreased Strength,Limited Range of Motion,Pain,Poor Balance,Poor Safety Awareness Comments Gait Comments pls refer to mobility section for details M5 PT-IP Objective Assessments Start: 11/22/20 13:31 Freq: NEEDED Status: Active Protocol: Document 11/22/20 16:24 AW (Rec: 11/22/20 16:48 AW [id number]) Orientation Orientation/Cognition Level of Alertness Alert Orientation Name,Day of Week,Place, Situation Language Function Ability No Deficits Noted Safety Awareness Understands Safety Issues Memory Description No Deficits Noted Gross Range of Motion Lower Extremity ROM Assessment Left Impaired Impairments AROM knee 5-85 Strength Lower Extremity Strength Assessment Left Impaired Hip 4-/5 Comments Strength Comments RLE grossly 4+/5 Sensation Assessment Sensation Gross Sensation Right LE Impaired,Left LE Impaired Light Touch Impaired Sensation Description Numbness Comments Sensation Comments Pt reports numbness proximally from pelvis to mid thigh M6 PT-IP Treatment Start: 11/22/20 13:31 Freq: NEEDED Status: Active Protocol: Document 11/23/20 13:20 AB (Rec: 11/23/20 15:13 AB [id number]) Physical Therapy Treatment Education Education Provided Safety M7 PT-IP Assessment and Plan Start: 11/22/20 13:31 Freq: NEEDED Status: Active Protocol: Document 11/23/20 13:20 AB (Rec: 11/23/20 15:13 AB [id number]) PT Summary Assessment and Plan Potential Rehabilitation Potential Good Summary Impairments Pain,ROM,Strength,Balance, Coordination,Sensation,Tone, Cognition,Bed Mobility, Transfers,Gait,Activity Tolerance Progress Towards Goals Slow Progress due to Pain Assessment Summary caregiver training conducted and spouse was able to assist pt with mobility. pt may go home when medically stable. pt will have outpt PT. Goals Bed Mobility Goal Independent Transfer Goal Independent,Front Wheeled Walker Gait Goal Independent,Front Wheel Walker Gait Distance 200 Days to Meet Goals 5 Frequency of Treatment Frequency Of Treatment Twice a Day Treatment Plan Physical Therapy Treatment Plan Bed Mobility Training,Transfer Training,Gait Training, Therapeutic Exercise,Balance Retraining,Post Op Education, Discharge Planning,Hot or Cold Pack,Neuromuscular Re-ed Precautions Other Precautions WBAT LLE Recommendations To Nursing Amount of Assist Needed 1 Person Assist Discharge Recommendations PT Discharge Recommendations Home with Assistance, Outpatient PT Transportation Needs at Discharge Private Vehicle
[2020-11-23] MEDS: MELATONIN 3 MG TABLET PO (20:48)
[2020-11-24 00:14] VITALS: BP 99/57; PULSE 69; RESP 16; TEMP 37; O2SAT 91
[2020-11-24] MEDS: IBUPROFEN 400 MG TABLET PO ×4 (00:37→12:36)
[2020-11-24] MEDS: OXYCODONE IR 10 MG TABLET PO (00:37)
[2020-11-24] MEDS: HYDROMORPHONE 2 MG TABLET PO ×3 (05:12→12:36)
[2020-11-24 08:00] VITALS: BP 95/57; PULSE 72; RESP 18; TEMP 37.1; O2SAT 93
[2020-11-24] MEDS: SODIUM CHLORIDE 0.9% FLUSH 10 ML IV (08:03)
--- NOTE | 2020-11-24 08:09 | PM.PNPO.1 ---
Subjective Subjective Date Patient Seen: 11/24/20 Time Patient Seen: 08:09 Interval history: Patient states he is doing well and feels his pain level is improving. Patient reports good sensation throughout the bilateral lower extremities. Throughout the course of the patient's stay in the hospital he has denied fever, chills, nausea, urinary retention, shortness of breath, or chest pain. Patient states he is looking forward to continuing to work with physical therapy. Exam Vital Signs (past 8 hours): - 11/24/20 00:14 Temperature 98.6 F Pulse Rate 69 Respiratory Rate 16 Blood Pressure 99/57 L Pulse Oximetry 91 Oxygen Delivery Method Room Air Oxygen Flow Rate 0 Narrative Exam Narrative: 65-year-old male postop day 2 status post left total knee arthroplasty. Patient is resting comfortably in bed, is in no acute distress, is alert and oriented x3. Skin is warm and dry, and the skin surrounding the incision site is free of erythema, warmth, induration, or discharge. Good sensation appreciated throughout the bilateral lower extremities to light touch. Hip flexion performed bilaterally without difficulty or discomfort, right greater than left. Ankle inversion, eversion, dorsiflexion, plantar flexion performed bilaterally without difficulty or discomfort. Calves are soft and nontender, negative Homans sign. No other signs of DVT appreciated. Capillary refill less than 2 seconds. Resp Effort & Inspection: normal respiratory effort and able to speak in complete sentences Skin General: no rashes or lesions noted and elasticity normal Objective Labs Result Diagrams: 11/23/20 05:00 [facility] Medical History Ascending aorta enlargement BPH (benign prostatic hyperplasia) CAD (coronary artery disease) Degenerative disc disease Degenerative joint disease of knee Hearing loss Heart attack High cholesterol History of colon polyps Kidney stones Non-STEMI (non-ST elevated myocardial infarction) (07/28/19) PEG (obstructive sleep apnea) Osteoarthritis Pre-diabetes RBBB (right bundle branch block) Ribs, multiple fractures (~2005) Seasonal allergies Surgical History H/O vasectomy (~1995) History of adenoidectomy History of shoulder surgery Hx of arthroscopic knee surgery Hx of fusion of cervical spine (~1995) Hx of heart artery stent (01/06/20) Status post laminectomy (~2011) Family History Father Stroke Mother Hypertension Brother Heart disease Stroke Social History household members: spouse Smoking Status: Never smoker alcohol intake: current Assessment & Plan Post-op Postoperative Procedures: Procedures Operation Date: 11/22/20 10:15 Actual Procedures Side Surgeon p Total Knee Arthroplasty Left Guy Gann MD Postoperative day: 2 Postoperative status: doing well Postoperative plan: ambulate Postoperative plan narrative: Patient is to continue working with physical therapy. Pain management regimen is to be continued as is adequately controlling patient's pain level. Plan for discharge following work with physical therapy in the afternoon. Time Spent With Patient Time with patient: 15-24 minutes Quality VTE Deep Vein Thrombosis/Pulmonary Embolism Present on Admission: No
--- NOTE | 2020-11-24 08:16 | P.DS_ITS ---
History of Present Illness History of Present Illness Date Patient Seen: 11/24/20 Time Patient Seen: 08:16 Chief complaint: Left Total Knee Arthroplasty *OPB* Narrative: Refer to previous HPI. Discharge Providers Provider Date of admission: 11/23/20 14:55 Discharge Date: 11/24/20 Primary care physician: Torin Newberry MD Consults: 11/22/20 13:04 Consult to Discharge Planning Routine Comment: Consult to Physical Therapy Evaluate & Treat Comment: Physician Instructions: postop TKA protocol Discharge provider: Brando Goodman PA-C Summary Hospital Course Discharge Diagnosis: Left knee osteoarthritis Status post left total knee arthroplasty Hospital Course: Patient was admitted to the hospital following the above-listed procedure for the above-listed diagnosis. Following the procedure the patient has been convalescing appropriately in his pain has been controlled with current pain management regimen. The patient has successfully worked with physical therapy, and his has also worked with Physical therapy on caregiver training. Throughout the course of the patient's stay he has denied fever, chills, nausea, urinary retention, shortness of breath, or chest pain. Status at Discharge Cognitive/behavioral status at discharge: oriented Functional status at discharge: uses cane/walker Overall status at discharge: patient is progressing back to baseline Exam Vital Signs (past 8 hours): Oxygen Delivery Method Room Air Oxygen Flow Rate 0 Narrative Exam Narrative: 65-year-old male postop day 2 status post left total knee arthroplasty. Patient is resting comfortably in bed, is in no acute distress, is alert and oriented x3. Skin is warm and dry, and the skin surrounding the incision site is free of erythema, warmth, induration, or discharge. Good sensation appreciated throughout the bilateral lower extremities to light touch. His flexion performed bilaterally without difficulty or discomfort, right greater than left. Calves are soft and nontender, negative Homans sign. Ankle inversion, eversion, plantar flexion, dorsiflexion performed bilaterally without difficulty or discomfort. Palpable pulses appreciated, capillary refill less than 2 seconds. No signs of DVT proceed. Resp Effort & Inspection: normal respiratory effort and able to speak in complete sentences Skin General: no rashes or lesions noted Objective Labs Result Diagrams: 11/23/20 05:00 [facility] Medical History Ascending aorta enlargement BPH (benign prostatic hyperplasia) CAD (coronary artery disease) Degenerative disc disease Degenerative joint disease of knee Hearing loss Heart attack High cholesterol History of colon polyps Kidney stones Non-STEMI (non-ST elevated myocardial infarction) (07/28/19) PEG (obstructive sleep apnea) Osteoarthritis Pre-diabetes RBBB (right bundle branch block) Ribs, multiple fractures (~2005) Seasonal allergies Surgical History H/O vasectomy (~1995) History of adenoidectomy History of shoulder surgery Hx of arthroscopic knee surgery Hx of fusion of cervical spine (~1995) Hx of heart artery stent (07/28/19) Status post laminectomy (~2011) Family History Father Stroke Mother Hypertension Brother Heart disease Stroke Social History household members: spouse Smoking Status: Never smoker alcohol intake: current Discharge Assessment & Plan Assessment and Plan Assessment: The patient is stable postoperative day 1 status post left total knee replacement. He has a mild post hemorrhagic anemia which should not require specific treatment. He has made reasonable progress with ambulation and the an ticipation is he will be ready for discharge today. Plan of Treatment: Physical therapy this morning with likely discharge later in the morning or early afternoon. He has a follow-up at my office in 2 weeks. Discharge prescriptions have been sent in for oxycodone and Vistaril. He will be instructed in the short-term use of ibuprofen and Tylenol for additional pain control. He also be instructed in the use of low-dose aspirin twice a day for DVT prophylaxis. Discharge Plan Discharge Plan Patient Disposition: Home Provider Discharge Comment: Clear for discharge pending PT approval. Discharge orders & Medications Prescriptions: New aspirin 81 mg Tablet,Delayed Release (Dr/Ec) 81 mg PO BID 42 Days Qty: 84 RF: 0 ibuprofen 400 mg Tablet 400 mg PO Q4HR 30 Days RF: 0 oxycodone 5 mg Tablet 5 mg PO Q4H PRN (Reason: Pain, Moderate (4-6)) Qty: 40 RF: 0 hydroxyzine pamoate 25 mg Capsule 25 mg PO Q6HR PRN (Reason: Nausea) Qty: 30 RF: 0 acetaminophen 325 mg Tablet 650 mg PO TID Qty: 90 RF: 0 oxycodone 10 mg Tablet 10 mg PO Q3HR PRN (Reason: Pain, Severe (7-10)) Qty: 42 RF: 0 Continued tramadol 50 mg tablet 50 mg PO BID PRN (Reason: pain) Qty: 60 RF: 0 ezetimibe 10 mg Tablet 10 mg PO DAILY RF: 0 rosuvastatin 40 mg Tablet 40 mg PO DAILY RF: 0 acetaminophen [Tylenol] 325 mg capsule 650 mg PO Q6H PRN (Reason: Pain) RF: 0 losartan 25 mg tablet 12.5 mg PO DAILY RF: 0 metoprolol succinate [Toprol XL] 25 mg tablet extended release 24 hr 25 mg PO DAILY RF: 0 nitroglycerin 0.4 mg tablet, sublingual 0.4 mg SL Q5M PRN (Reason: Chest Pain) RF: 0 tamsulosin 0.4 mg capsule 0.4 mg PO DAILY RF: 0 trazodone 100 mg tablet 100 mg PO DAILY RF: 0 valacyclovir 500 mg tablet 500 mg PO DAILY RF: 0 Discontinued aspirin [Adult Aspirin Regimen] 81 mg tablet,delayed release (DR/EC) 81 mg PO DAILY RF: 0 Follow up/Referrals: Guy Gann MD [Physician] - 2 Weeks Torin Newberry MD [Primary Care Provider] - Diet/Activity/Treatments Diet: Diet as Tolerated and Regular Activity: You may bear weight as tolerated on your left leg. Cold/Heat Therapy: Apply ice to the left knee for 15 minutes every hour as needed for pain control. Skin/Wound/Dressing Care Report to your healthcare provider any signs of infection, such as:: chills, fever, night sweats, increased pain, unusual drainage and unusual redness Dressing: You may remove the Heath wrap in 3 days and shower normally with the deeper dressing in place. Keep the deeper dressing in place until your follow- up. If the central strip of the deeper dressing becomes saturated with either water or blood, please contact the office to have it changed. Visit Report/Discharge Packet Instructions: DI for Knee Replacement, How to Prevent Falls, Stool Softeners, Hydroxyzine Stand Alone Forms: Surgery Discharge Discharge Data Primary Care Provider: Torin Newberry Attending Provider: Guy Gann Quality VTE Deep Vein Thrombosis/Pulmonary Embolism Present on Admission: No
[2020-11-24] MEDS: ACETAMINOPHEN 325 MG TABLET 650 MG PO (08:18)
[2020-11-24] MEDS: DOCUSATE 100 MG CAPSULE PO (08:20)
[2020-11-24] MEDS: ASPIRIN EC 81 MG TABLET PO (08:20)
[2020-11-24] MEDS: EZETIMIBE 10 MG TABLET PO (08:20)
[2020-11-24] MEDS: METOPROLOL ER 25 MG TABLET PO (08:22)
[2020-11-24] MEDS: TAMSULOSIN 0.4 MG CAPSULE PO (08:24)
[2020-11-24] MEDS: hydrOXYzine pamoate 25 MG CAPSULE PO (08:26)
--- NOTE | 2020-11-24 10:22 | PT.IPTN ---
Current Diagnoses Unilateral primary osteoarthritis, left knee (11/23/20) Surgery Performed Operation Date: 11/22/20 10:15 Actual Procedures p Total Knee Arthroplasty(Left) - Guy Gann MD Physical Therapy Treatment Note M2 PT-IP Current Condition Start: 11/22/20 13:31 Freq: NEEDED Status: Active Protocol: Document 11/22/20 16:24 AW (Rec: 11/22/20 16:48 AW [id number]) Physical Therapy Current Condition Current Condition Evaluation Date 11/22/20 Treatment Diagnosis L TKA; difficulty in walking Weight Bearing Status Weight Bearing Status Weight Bear as Tolerated M3 PT-IP Subjective Start: 11/22/20 13:31 Freq: NEEDED Status: Active Protocol: Document 11/24/20 09:50 SP (Rec: 11/24/20 12:33 SP [id number]) Subjective Physical Therapy Visit Type Type Treatment Note Visit Start Time 09:50 Visit Stop Time 10:22 Total Visit Minutes 32 Notes Set up caregiver training for 2 pm with . Number of AUTOMATIC MOUNTER Visits 1 Physical Therapy Visit Comments Patient Comments pt agreeable to working with therapy Therapy Pain Assessment Pain When Pain Assessed At Rest Pain Present Pain Present Pain Reported Location Left Knee Intensity 7 Scale Used 7/10 at rest, 8/10 during mobility Pain Behaviors Facial Grimacing,Guarding Pain Management Techniques Apply Cold,Distraction, Modification of Treatment, Timing of Activity with Medications M4 PT-IP Mobility and Gait Start: 11/22/20 13:31 Freq: NEEDED Status: Active Protocol: Document 11/24/20 09:50 SP (Rec: 11/24/20 12:33 SP [id number]) PT-Bed Mobility Assessment Supine to Sit Supine to Sit Minimal Assistance Scooting Scooting to Edge of Bed Minimal Assistance PT-Transfer Assessment Sit to and From Stand Sit to and from Stand Contact Guard Assistance, Minimal Assistance,1 Person Assistance,Use of Upper Extremities Equipment Transfer Assistive Device Gait Belt,Front Wheeled Walker Orthotic/Prosthetic Devices or Brace: No Transfers Transfer Destination Chair Transfer Technique pt ambulated using FWW Transfer Ability Level of Assist Contact Guard Assistance,1 Person Assistance,Use of Upper Extremities Comments Mobility Comments Pt was inclined in bed when arrived. Instructed LLE ther ex in supine (disussed knee flexion seated not performed): quad sets, ankle pumps, AAROM L knee flexion approx 70 deg w/ education on use of gait belt strap for self performance. supine>sit Min A for LLE mobility and education on self use of strap when can , required heavy BUE support WB on bed to scoot. Sit>stand CGA use of FWW, SPT to chair CGA and good slow descent into chair. Sit<> stand from chair Min A for trunk support. Pt ambulated around room using fWW CGA and back to chair CGA slow descent in to chair. Assist for LE elevation chair leg rest and donned cold pack for assist pain control. Pt had call light and all needs in reach before left. Gait Assessment Gait Gait Assistance Required: Contact Guard Assist Distance (Feet) 30 Able to Maintain Weight Bearing Status Yes During Gait Assistive Devices Assistive Device Gait Belt,Front Wheeled Walker Orthotic/Prosthetic Devices or Brace: No Gait Deviations General Gait Pattern Antalgic,Decreased Stride Length,Decreased Feet Clearance,Step-to Gait Factors Limiting Gait Function Factors Limiting Gait Function Decreased Activity Tolerance, Decreased Strength,Limited Range of Motion,Pain,Poor Balance,Poor Safety Awareness Comments Gait Comments step to patterning, cued for LLE knee flexion heel toe and longer strides for improved gait phases, heavy BUE WB on FWW and not putting full weight on LLE during gait this tx, 8/10 pain. Stair Climbing Assessment Comments Stair Climbing Comments Not assessed. Pt has ramped entry at home. PT-Balance Assessment Sitting Balance and Reactions Static Sitting Balance Ability Normal Dynamic Sitting Balance Ability Normal Standing Balance and Reactions Static Standing Balance Ability Fair Dynamic Standing Balance Ability Poor Device Used FWW M5 PT-IP Objective Assessments Start: 11/22/20 13:31 Freq: NEEDED Status: Active Protocol: Document 11/22/20 16:24 AW (Rec: 11/22/20 16:48 AW [id number]) Orientation Orientation/Cognition Level of Alertness Alert Orientation Name,Day of Week,Place, Situation Language Function Ability No Deficits Noted Safety Awareness Understands Safety Issues Memory Description No Deficits Noted Gross Range of Motion Lower Extremity ROM Assessment Left Impaired Impairments AROM knee 5-85 Strength Lower Extremity Strength Assessment Left Impaired Hip 4-/5 Comments Strength Comments RLE grossly 4+/5 Sensation Assessment Sensation Gross Sensation Right LE Impaired,Left LE Impaired Light Touch Impaired Sensation Description Numbness Comments Sensation Comments Pt reports numbness proximally from pelvis to mid thigh M6 PT-IP Treatment Start: 05/03/21 13:31 Freq: NEEDED Status: Active Protocol: Document 11/24/20 09:50 SP (Rec: 11/24/20 12:33 SP [id number]) Physical Therapy Treatment Exercises Exercises Ankle Pumps,Quad Sets,Heel Slides,Supine Hip Abduction, Seated Knee Flexion/Extension Education Education Provided Weight Bearing Status,Post-Op Packet,Safety Other Treatments Other Treatment Performed Provided education weightbearing status, and safe use of FWW. . M7 PT-IP Assessment and Plan Start: 11/22/20 13:31 Freq: NEEDED Status: Active Protocol: Document 11/24/20 09:50 SP (Rec: 11/24/20 12:33 SP [id number]) PT Summary Assessment and Plan Potential Rehabilitation Potential Good Status of Condition at Evaluation Evolving Summary Impairments Pain,ROM,Strength,Balance, Coordination,Sensation,Tone, Cognition,Bed Mobility, Transfers,Gait,Activity Tolerance Progress Towards Goals Progressing Toward Goals,Slow Progress due to Pain,Slow Progress due to Activity Tolerance Assessment Summary Pt required increase assist during bed mobility and sit> stand from chair using heavy WB BUE this am due to pain with decreased WB on LLE ( premedicated 2 hrs prior to tx ). Will continue caregiver training during 2pm tx. Will continue to assess progress and anticipate ok to return home with to assist him. He is already set up with outpt PT next week. Goals Bed Mobility Goal Independent Transfer Goal Independent,Front Wheeled Walker Gait Goal Independent,Front Wheel Walker Gait Distance 200 Days to Meet Goals 5 Frequency of Treatment Frequency Of Treatment Twice a Day Treatment Plan Physical Therapy Treatment Plan Bed Mobility Training,Transfer Training,Gait Training, Therapeutic Exercise,Balance Retraining,Post Op Education, Discharge Planning,Hot or Cold Pack,Neuromuscular Re-ed Other Recommendations and Next Treatment caregiver training 2 pm, Focus continue gait training with FWW; bed mobility, transfers. Precautions Other Precautions WBAT LLE Recommendations To Nursing Amount of Assist Needed 1 Person Assist Discharge Recommendations PT Discharge Recommendations Home with Assistance, Outpatient PT Equipment Needed for Home Before Pt's was able to acquire Discharge FWW from [employer] for home use, in pt room. Transportation Needs at Discharge Private Vehicle
--- NOTE | 2020-11-24 10:30 | CM.DPC ---
Addendum entered by SUNDAY Romo 11/24/20 10:59: ADD: Per STEAM GIGGER, completed morning therapy but spouse cannot come in until the afternoon so PT will complete CG training with spouse bedside this afternoon as pt is slow to progress and will confirm pt safe for d/c home later today. BF Original Note: DCP Discharge Home Per Ortho PA, pt medically stable to d/c home today with spouse and no identified barriers to discharge. Per PT, recommending safe d/c home with spouse assist and outpt PT. Pt and spouse agreeable with d/c home today and no concerns at this time. Plan: Patient to d/c home via spouse POV and outpt PT set up after discharge. No SW needs at this time. SUNDAY Romo
--- NOTE | 2020-11-24 14:50 | PT.IPTN ---
Current Diagnoses Unilateral primary osteoarthritis, left knee (11/23/20) Surgery Performed Operation Date: 11/22/20 10:15 Actual Procedures p Total Knee Arthroplasty(Left) - Guy Gann MD Physical Therapy Treatment Note M2 PT-IP Current Condition Start: 11/22/20 13:31 Freq: NEEDED Status: Discharge Protocol: Document 11/22/20 16:24 AW (Rec: 11/22/20 16:48 AW [id number]) Physical Therapy Current Condition Current Condition Evaluation Date 11/22/20 Treatment Diagnosis L TKA; difficulty in walking Weight Bearing Status Weight Bearing Status Weight Bear as Tolerated M3 PT-IP Subjective Start: 11/22/20 13:31 Freq: NEEDED Status: Discharge Protocol: Document 11/24/20 14:05 SP (Rec: 11/24/20 16:58 SP [id number]) Subjective Physical Therapy Visit Type Type Treatment Note Visit Start Time 14:05 Visit Stop Time 14:50 Total Visit Minutes 45 Notes completed caregiver training including support for gait and stair mgt. Number of PLASTICS TECHNICIAN Visits 2 Physical Therapy Visit Comments Patient Comments Pt agreeable to working with therapy Patient Goals return home with to assist him. Therapy Pain Assessment Pain When Pain Assessed At Rest Pain Present Pain Present Pain Reported Location Left Knee Intensity 4 Scale Used 4/10 at rest, 7/10 during mobility Description With Movement Pain Behaviors Facial Grimacing,Guarding Pain Management Techniques Apply Cold,Distraction, Modification of Treatment, Timing of Activity with Medications M4 PT-IP Mobility and Gait Start: 11/22/20 13:31 Freq: NEEDED Status: Discharge Protocol: Document 11/24/20 14:05 SP (Rec: 11/24/20 16:58 SP [id number]) PT-Transfer Assessment Sit to and From Stand Sit to and from Stand Contact Guard Assistance,1 Person Assistance,Use of Upper Extremities Equipment Transfer Assistive Device Gait Belt,Front Wheeled Walker Orthotic/Prosthetic Devices or Brace: No Transfers Transfer Destination Chair,Wheelchair Transfer Technique pt ambulated using FWW Transfer Ability Level of Assist Contact Guard Assistance,1 Person Assistance,Use of Upper Extremities Comments Mobility Comments Pt was seated in chair when arrived, nursing in room. Completed don gait belt, sit> stand CGA with , ambulated to w/c in hallway 15 ft using FWW CGA, BUE assist slow descent into w/c. Pushed pt down to stairs in w/c. Ascend/ descend 3 stairs step to patterning 1 HR HOCKEY PLAYER initial step then B UE on 1 HR 2-3 step Anayeli by , min cuing for body positioning. Ambulated further 57 ft in hallway using FWW CGA w/c follow before required sit due to pain and decreased strength/ activity tolerance. Pt ambulated to chair 15 ft from w/c in hallway using fWW CGA. Good slow descent into chair CGA. PLASTICS TECHNICIAN cued for positioning LLE out front prior to sit for decrease pressure and pain in L knee at this time. Assisted LE elevation and CP application for pain control. PLASTICS TECHNICIAN notified nursing of his request of something for acid reflux pain also having. Pt had call light and all needs in reach with in room before left. Pt is set up with outpt PT on Sunday. Pt called [employer] and will acquire manual w/c at DC due to decreased distance gait tolerance for assist with transportation. Pt is ok to return home with to assist him when medically cleared. Gait Assessment Gait Gait Assistance Required: Contact Guard Assist Distance (Feet) 57 Able to Maintain Weight Bearing Status Yes During Gait Assistive Devices Assistive Device Gait Belt,Front Wheeled Walker Orthotic/Prosthetic Devices or Brace: No Gait Deviations General Gait Pattern Antalgic,Decreased Stride Length,Decreased Feet Clearance,Flexed Trunk,Step-to Gait Factors Limiting Gait Function Factors Limiting Gait Function Decreased Activity Tolerance, Decreased Strength,Limited Range of Motion,Pain,Poor Balance Comments Gait Comments step to patterning, cued L knee flexion w/ heel toe during swing through, upright posture and quad facilitation during midstance gait phase. Stair Climbing Assessment Evaluation Level of Assist On Stairs Contact Guard Assistance, Minimal Assistance,1 Person Assistance Devices Stair Climbing Assistive Devices Left Railing Technique/Endurance Stair Climbing Direction Ascend and Descend Stair Climbing Technique Step to Step Number of Steps Climbed 3 Stair Climbing Set # Repetitions (reps) 1 Comments Stair Climbing Comments Pt wanted to assess stair mgt due to very long distance ramp and wrap around deck to enterance. Stairs: step to patterning. Initially L HR w/ HOCKEY PLAYER on R but unable provide enough support so changed to BUE on L HR, cued upright posture. Pt unable to complete full 5 stairs has at home due to pain and decrease strength. PT-Balance Assessment Sitting Balance and Reactions Static Sitting Balance Ability Normal Dynamic Sitting Balance Ability Normal Standing Balance and Reactions Static Standing Balance Ability Fair Dynamic Standing Balance Ability Fair Device Used FWW M5 PT-IP Objective Assessments Start: 11/22/20 13:31 Freq: NEEDED Status: Discharge Protocol: Document 11/22/20 16:24 AW (Rec: 11/22/20 16:48 AW [id number]) Orientation Orientation/Cognition Level of Alertness Alert Orientation Name,Day of Week,Place, Situation Language Function Ability No Deficits Noted Safety Awareness Understands Safety Issues Memory Description No Deficits Noted Gross Range of Motion Lower Extremity ROM Assessment Left Impaired Impairments AROM knee 5-85 Strength Lower Extremity Strength Assessment Left Impaired Hip 4-/5 Comments Strength Comments RLE grossly 4+/5 Sensation Assessment Sensation Gross Sensation Right LE Impaired,Left LE Impaired Light Touch Impaired Sensation Description Numbness Comments Sensation Comments Pt reports numbness proximally from pelvis to mid thigh M6 PT-IP Treatment Start: 11/22/20 13:31 Freq: NEEDED Status: Discharge Protocol: Document 11/24/20 14:05 SP (Rec: 11/24/20 16:58 SP [id number]) Physical Therapy Treatment Education Education Provided Weight Bearing Status,Safety M7 PT-IP Assessment and Plan Start: 11/22/20 13:31 Freq: NEEDED Status: Discharge Protocol: Document 11/24/20 14:05 SP (Rec: 11/24/20 16:58 SP [id number]) PT Summary Assessment and Plan Potential Rehabilitation Potential Good Status of Condition at Evaluation Evolving Summary Impairments Pain,ROM,Strength,Balance, Coordination,Sensation,Tone, Cognition,Bed Mobility, Transfers,Gait,Activity Tolerance Progress Towards Goals Progressing Toward Goals,Slow Progress due to Pain,Slow Progress due to Activity Tolerance Assessment Summary Pt's pain was better controlled pm tx but having acid reflux discomfort. assist pt during sit>stand, gait using FWW CGA with trailing w/c, completed 3/5 stairs using 1 HR. Pt is acquiring manual w/c for assist seated rest for decreased endurance gait home enterance. Pt is ok to return home with to assist him when medically cleared. He is already set up with outpt PT next week. Goals Bed Mobility Goal Independent Transfer Goal Independent,Front Wheeled Walker Gait Goal Independent,Front Wheel Walker Gait Distance 200 Days to Meet Goals 5 Frequency of Treatment Frequency Of Treatment Twice a Day Treatment Plan Physical Therapy Treatment Plan Bed Mobility Training,Transfer Training,Gait Training, Therapeutic Exercise,Balance Retraining,Post Op Education, Discharge Planning,Hot or Cold Pack,Neuromuscular Re-ed Other Recommendations and Next Treatment LE exercises, bed mobiltiy, Focus gait distance, stair mgt if tolerated. Precautions Other Precautions WBAT LLE Recommendations To Nursing Amount of Assist Needed 1 Person Assist Discharge Recommendations PT Discharge Recommendations Home with Assistance, Outpatient PT Equipment Needed for Home Before Pt's was able to acquire Discharge FWW and w/c from [employer] for home use. Transportation Needs at Discharge Private Vehicle
== END 2020-11-24 15:44 | disposition home or self-care (01) ==
LOC: OR 15:02 → AC 15:02
PROVIDERS: Admitting Provider Orthopaedic Surgery; PCP Family Medicine; Referring Provider Family Medicine; Visit Provider Orthopaedic Surgery
PROC: 0SRD0JZ Replacement of Left Knee Joint with Synthetic Substitute, Open Approach (ICD-10-PCS; CPT 27447; principal; 2020-11-22 10:15)
DX: M17.12 Unilateral primary osteoarthritis, left knee (principal); D50.0 Iron deficiency anemia secondary to blood loss (chronic); I25.10 Atherosclerotic heart disease of native coronary artery without angina pectoris; G47.33 Obstructive sleep apnea (adult) (pediatric); I25.2 Old myocardial infarction; E78.00 Pure hypercholesterolemia, unspecified
CPT/HCPCS: 27447; 36415; 73560; 85014; 85018; 97110; 97116; 97161; 97530; C1776; G0378; C9290; J0690; J2250; J2270; J2274; J2704; J3010

== ENCOUNTER → 2021-02-16 17:50 | Outpatient (CLI) | payer OTHER, SELFPAY ==
[2021-02-01 13:30] VITALS: BMI 33.2
--- NOTE | 2021-02-16 | DI.MRI.S_ITS ---
PROCEDURE: MR SHOULDER RT WO CON INDICATIONS: pain in right shoulder TECHNIQUE: Noncontrast oblique coronal T2 fast spin echo with fat saturation, oblique sagittal T1 spin echo and T2 fast spin echo with fat saturation, axial T1 spin echo and T2 fast spin echo with fat saturation through the shoulder. COMPARISON: None. FINDINGS: Postsurgical changes related to hardware fixation of the clavicle with associated artifact. Rotator cuff: Severe supraspinatus tendinopathy and interstitial tearing, with low-grade bursal surface fraying and partial thickness articular sided tear probably up to 50% of tendon thickness at the footprint. Infraspinatus tendinopathy and interstitial tearing also noted above low-grade bursal surface fraying and partial thickness articular sided tear. Teres minor tendon appears intact. Subscapularis tendinopathy and partial-thickness articular sided tear no definite atrophy of the rotator cuff muscles although there is fatty infiltration of the supraspinatus and infraspinatus. Bones and bursae: No bone marrow contusions or fractures. Severe hypertrophic acromioclavicular joint degeneration. Acromion demonstrates conventional anatomy, without an os acromiale. Moderate subacromial-subdeltoid bursitis. Capsule and soft tissues: Labrum: Severe circumferential probably chronic labral tear, with severely macerated appearance. There is diffuse glenohumeral partial-thickness cartilage loss. Biceps tendon: Long head of the biceps tendon intact. Rotator interval: Partial obliteration of the subcoracoid fat signal intensity. Coracohumeral ligament: Intact. IMPRESSION: Partial-thickness rotator cuff tear as detailed above. Moderate subacromial-subdeltoid bursitis. Moderate to severe degenerative joint disease. Circumferential chronic labral tear with macerated appearance and associated degeneration. Dictated by: Ehsan Thomas M.D. on 02/17/2021 at 9:14 Approved by: Ehsan Thomas M.D. on 02/17/2021 at 9:27
== END ==
PROVIDERS: PCP Family Medicine; Referring Provider Student in an Organized Health Care Education/Training Program; Visit Provider Student in an Organized Health Care Education/Training Program
DX: M25.511 Pain in right shoulder (principal); M75.111 Incomplete rotator cuff tear or rupture of right shoulder, not specified as traumatic; M19.011 Primary osteoarthritis, right shoulder; M75.51 Bursitis of right shoulder; S43.491A Other sprain of right shoulder joint, initial encounter
CPT/HCPCS: 73221

== ENCOUNTER → 2021-03-12 08:31 | Outpatient (CLI) | payer OTHER, SELFPAY ==
[2021-02-01 13:30] VITALS: BMI 33.2
--- NOTE | 2021-03-12 08:33 | DI.MRI.S_ITS ---
PROCEDURE: MR LUMBAR SPINE WO CON INDICATIONS: Radiculopathy, lumbar region TECHNIQUE: Noncontrast sagittal T1 spin echo and T2 fast echo, sagittal STIR, axial T1 and T2 fast spin echo through the lumbar spine. In cases with scoliosis, additional coronal T2 fast spin echo may be performed. COMPARISON: Merged With [facility], CT, CT KIDNEY URETER BLADDER (KUB), 10/24/2018, 14:41. Merged With [facility], MR, MR THORACIC SPINE WO/W CON, 11/04/2019, 11:52. FINDINGS: Image quality: Excellent. Alignment and Curvature: There is trace retrolisthesis of L1 on L2, L5 on S1. Bone Marrow: Marrow is of normal overall signal. Minimal reactive endplate changes are present at L3-4, L4-5. There is a rounded focus of increased T2/STIR signal measuring 1.6 cm at the posterior superior right L3 vertebral body at the margin of the pedicle. It is mildly hyperintense on T1. Is felt to been present in 2019 although less well visualized. No acute vertebral body compression fractures. Spinal Cord: Conus medullaris terminates at the L1-L2 level. Visualized cord demonstrates normal signal and size. Paraspinous Soft Tissues: No paravertebral masses. Discs: Mild desiccation is present throughout the lumbar spine most notable from L2-3 through L4-5. L1-L2: Mild disc bulge with mild spinal stenosis. Minimal bilateral foraminal narrowing. L2-L3: Mild disc bulge with mild spinal stenosis. No foraminal narrowing. Mild facet hypertrophy. L3-L4: Mild disc bulge with mild spinal stenosis. There is mild narrowing through the subarticular recess most notable on the right. Mild facet hypertrophy. L4-L5: Mild disc bulge with superimposed posterior central protrusion. There is severe spinal stenosis and canal compression. Moderate to severe bilateral foraminal narrowing with facet and ligamentum flavum hypertrophy. There is compromise of the lateral recesses bilaterally. L5-S1: Minimal disc bulge without spinal stenosis. Moderate narrowing through the left subarticular recess is noted, minimal to mild on the right. IMPRESSION: 1. Multilevel disc bulges. 2. Multilevel spinal stenosis felt to be secondary to disc bulges with underlying mild congenital stenosis. 3. Severe spinal stenosis at L4-5 secondary to disc bulge/protrusion with contributing affective congenital stenosis and facet hypertrophy. 4. Foraminal narrowing is most notable at L4-5. However, multilevel do demonstrate prominent narrowing to the subarticular recesses prominently at L5-S1. 5. Focus of increased T1 and T2 signal at L3 likely hemangioma. Dictated by: Ashley Brown M.D. on 03/14/2021 at 8:27 Approved by: Ashley Brown M.D. on 03/14/2021 at 8:37
== END ==
PROVIDERS: PCP Family Medicine; Referring Provider Student in an Organized Health Care Education/Training Program; Visit Provider Student in an Organized Health Care Education/Training Program
DX: M51.16 Intervertebral disc disorders with radiculopathy, lumbar region (principal); M48.061 Spinal stenosis, lumbar region without neurogenic claudication; M48.07 Spinal stenosis, lumbosacral region
CPT/HCPCS: 72148

== ENCOUNTER → 2021-03-21 17:03 | Outpatient (CLI) | payer OTHER, SELFPAY ==
[2021-02-01 13:30] VITALS: BMI 33.2
--- NOTE | 2021-03-21 17:05 | DI.MRI.S_ITS ---
PROCEDURE: MR HIP LT WO CON INDICATIONS: PAIN IN LEFT HIP TECHNIQUE: Noncontrast coronal T1 spin echo and STIR through the bony pelvis. Coronal and axial T2 fast spin echo with fat saturation, sagittal T1 spin echo, and oblique axial T2 fast spin echo with fat saturation through the hip. COMPARISON: None. FINDINGS: Image quality: Excellent. Bones and joints: Mild joint space narrowing and periarticular osteophyte formation at the bilateral hip joints. Bone marrow of the pelvic ring and proximal femurs show normal signal throughout. No intraosseous lesions or fractures. No avascular necrosis of the femoral heads. The visualized lower lumbar spine appears normally aligned. Tendons and ligaments: The gluteus medius and minimus tendons appear intact, without associated muscle atrophy. The nearby proximal iliotibial band also appears intact. The iliopsoas tendon appears intact, without adjacent bursal fluid collections or evidence for impingement syndrome. The origin of the hamstring tendon is intact at the ischial tuberosity, as well as the associated sacrotuberous ligament. The straight and reflected heads of the rectus femoris muscle origin appear intact, as well as the conjoint tendon. There is mild T2 signal elevation at the ischial origin of the conjoint tendon. The ligamentum teres appears intact where visualized. Labrum and cartilage: High T2 signal intensity within the left superolateral hip labrum is present. Cartilage surface of the femoral head appears of normal thickness. The alpha angle of the femur is within normal limits at less than 55 degrees. Soft tissues: Visualized muscles demonstrate normal bulk and internal signal. Quadratus femoris muscle demonstrates no internal edema to suggest ischiofemoral impingement. The proximal sciatic neurovascular bundle appears normal adjacent to the hamstring tendons. No free pelvic fluid. Bladder wall thickness is normal. Genitourinary structures and bowel loops appear normal where visualized. IMPRESSION: 1. Bilateral hip osteoarthritis. 2. Findings suggestive of left hip labral tearing. 3. Findings suggestive of mild left ischiitis. Dictated by: Lana Dutta M.D. on 03/22/2021 at 10:33 Approved by: Lana Dutta M.D. on 03/22/2021 at 10:47
== END ==
PROVIDERS: PCP Family Medicine; Referring Provider Family Medicine; Visit Provider Family Medicine
DX: M25.552 Pain in left hip (principal); M16.0 Bilateral primary osteoarthritis of hip
CPT/HCPCS: 73721

== ENCOUNTER → 2021-05-27 13:52 | Outpatient (CLI) | payer OTHER, SELFPAY ==
[2021-02-01 13:30] VITALS: BMI 33.2
[2021-05-27 15:13] LABS: Add Manual Diff / Slide Review NO; Basophils Absolute Auto 0 /uL (0-100); Basophils Percent Auto 0.7 % (0-2); Eosinophils Absolute Auto 200 /uL (0-450); Eosinophils Percent Auto 2.3 % (2-4); Hematocrit 42.8 % (41-53); Hemoglobin 14.6 g/dL (13.5-17.5); Lymphocytes Absolute Auto 1200 /uL (1100-4500); Lymphocytes Percent Auto 17.9 % (25-40); Mean Corpuscular Hemoglobin 31.6 PG (26-34); Monocytes Absolute Auto 800 /uL (0-900); Monocytes Percent Auto 12.3 % (3-14); Neutrophils Absolute Auto 4500 /uL (1500-7000); Neutrophils Percent Auto 66.8 % (50-75); Platelet Count 175 X10^3/uL (150-400); Red Blood Cell Count 4.61 X10^6/uL (4.5-5.9); Red Cell Distribution Width 13.6 % (11.6-14.8); White Blood Cell Count 6.7 X10^3/uL (4.5-11.0)
[2021-05-27 15:40] LABS: Hemoglobin A1C% w Est Avg Glu 5.7 % (4.0-6.0)
[2021-05-27 17:02] LABS: BUN Creatinine Ratio 15.6 (6-22); Blood Urea Nitrogen 15 mg/dL (9-20); Calcium 9.6 mg/dL (8.4-10.2); Carbon Dioxide 28 mmol/L (22-32); Chloride 104 mmol/L (98-107); Estimated Glomerular Filt Rate > 60.0 mL/min (>60); Glucose 134 mg/dL (80-110); HEMOLYSIS < 15 (0-50); Potassium 3.9 mmol/L (3.4-5.1); Sodium 140 mmol/L (137-145)
== END ==
PROVIDERS: PCP Family Medicine; Referring Provider Orthopaedic Surgery Orthopaedic Surgery of the Spine; Visit Provider Orthopaedic Surgery Orthopaedic Surgery of the Spine
DX: Z01.812 Encounter for preprocedural laboratory examination (principal); R73.9 Hyperglycemia, unspecified
CPT/HCPCS: 36415; 80048; 83036; 85025

== ENCOUNTER 2021-05-31 09:46 | Inpatient (IN) | payer OTHER, SELFPAY ==
[2021-02-01 13:30] VITALS: BMI 33.2
[2021-05-31] VITALS (32 sets, daily range): BP systolic 83–121; BP diastolic 46–80; PULSE 60–90; RESP 10–26; TEMP 36.4–38.6; O2SAT 91–96; BMI 32.5
--- NOTE | 2021-05-31 | PATH_ITS ---
[facility] Accession Number: [id number] . 01 Material submitted: . appendix - APPENDIX . 02 Diagnosis: Appendix, Appendectomy: Acute appendicitis and serositis. [facility] 06/02/2021 0943 Local . 02 Electronically signed: . Niki Husain MD, Pathologist NPI- [id number] . 01 Gross description: . The specimen is received in formalin, labeled appendix and consists of a 6.4 cm in length by 1.2 cm in diameter vermiform appendix with attached hunter-yellow lobulated mesoappendix measuring 6.5 x 2.0 x 0.9 cm. The serosa is hunter-pink with fibrinous adhesions and adherent purulent exudate. Sectioning reveals a hunter mucosa and a lumen measuring 0.9 cm in diameter. [employer] sections are submitted, to include the en face margin (blue), central cross sections and bisected tip, in cassettes A1-A2. ([id number]) /V 06/01/2021 1135 Local . 02 Pathologist provided ICD-10: K35.80 . 02 CPT . 373821 Performed at: 01 [facility] [address], [place], [place] [id number] MD Danny Petersen MD Phone: [phone] Performed at: 02 [facility] [address] [place], [place] [id number] MD Shahla Coronel MD Phone: [phone]
--- NOTE | 2021-05-31 09:54 | DI.RAD.S_ITS ---
PROCEDURE: XR CHEST 1V INDICATIONS: chest pain TECHNIQUE: One view of the chest was acquired. COMPARISON: None. FINDINGS: Surgical changes and devices: Right clavicular surgical hardware, right rib surgical hardware. Lungs and pleura: Lungs are clear. No pleural effusions or pneumothorax. Mediastinum: Mediastinal contours appear normal. Heart size is normal. Bones and chest wall: No suspicious bony lesions. Overlying soft tissues appear unremarkable. IMPRESSION: No evidence acute pulmonary process. Dictated by: Jameson Purcell M.D. on 05/31/2021 at 10:07 Approved by: Jameson Purcell M.D. on 05/31/2021 at 10:08
[2021-05-31 10:22] LABS: Add Manual Diff / Slide Review NO; Basophils Absolute Auto 0 /uL (0-100); Basophils Percent Auto 0.2 % (0-2); Eosinophils Absolute Auto 0 /uL (0-450); Hematocrit 43.2 % (41-53); Hemoglobin 14.7 g/dL (13.5-17.5); Lymphocytes Absolute Auto 500 /uL (1100-4500); Lymphocytes Percent Auto 3.2 % (25-40); Mean Corpuscular HGB Conc 33.9 % (30-36); Mean Corpuscular Hemoglobin 31.3 PG (26-34); Mean Corpuscular Volume 92.4 fL (80-100); Monocytes Absolute Auto 1600 /uL (0-900); Monocytes Percent Auto 9.4 % (3-14); Neutrophils Absolute Auto 14500 /uL (1500-7000); Neutrophils Percent Auto 87.2 % (50-75); Platelet Count 168 X10^3/uL (150-400); Red Blood Cell Count 4.68 X10^6/uL (4.5-5.9); Red Cell Distribution Width 13.9 % (11.6-14.8); White Blood Cell Count 16.7 X10^3/uL (4.5-11.0)
[2021-05-31] MEDS: SODIUM CHLORIDE 0.9% 1,000 ML 1000 ML IV (10:23)
[2021-05-31 10:31] LABS: Lactate (Lactic Acid) 1.1 mmol/L (0.7-2.1)
--- NOTE | 2021-05-31 10:31 | DI.CT.S_ITS ---
PROCEDURE: CT ABDOMEN PELVIS W CON INDICATIONS: RLQ pain TECHNIQUE: After the administration of intravenous contrast, axial sections acquired from the lung bases to the pubic symphysis. Coronal and sagittal reformats were performed. For radiation dose reduction, the following was used: automated exposure control, adjustment of mA and/or kV according to patient size. COMPARISON: None. FINDINGS: Image quality: Excellent. Lung bases: Unremarkable. Heart: Coronary artery calcifications. ABDOMEN: Liver: Unremarkable. Gallbladder: Unremarkable. Biliary ducts: Unremarkable. Pancreas: Unremarkable. Spleen: Splenic calcifications suggest possible granulomatous disease. Normal spleen size. Adrenal Glands: Unremarkable. Kidneys and Ureters: Unremarkable. Stomach and Bowel: Acute appendicitis. Possibly ruptured. Multiple calcified appendicular lids. Fluid-filled appendix dilatation and wall thickening. The appendix measures approximately 1.4 cm in diameter. There is is significant inflammatory change in the adjacent fat. No free air. No abscess cavity. Mild wall edema in the cecum and proximal ascending colon. Peritoneum: No abnormal intraperitoneal fluid. No free air. Ventral Wall: No hernias. Abdominal Nodes: No retroperitoneal or mesenteric adenopathy by size criteria. Vessels: Aorta and inferior vena cava are normal in size. PELVIS: Pelvic Organs: Unremarkable. Bladder: Unremarkable. Pelvic Nodes: No enlarged lymph nodes. Miscellaneous: No hernias are seen. Bones: A left paracentral disc extrusion at L4-L5 contributes to severe canal stenosis. IMPRESSION: 1. Acute appendicitis. Cannot exclude recent rupture. 2. Coronary artery disease. 3. Severe multifactorial canal stenosis at L4-L5, partially secondary to a disc extrusion. Dictated by: Jameson Purcell M.D. on 05/31/2021 at 10:56 Approved by: Jameson Purcell M.D. on 05/31/2021 at 11:00
[2021-05-31 10:32] LABS: Alanine Aminotransferase 34 IU/L (<50); Albumin 4.3 g/dL (3.5-5.0); Albumin Globulin Ratio 1.4 (1.0-2.8); Alkaline Phosphatase 66 U/L (38-126); Aspartate Aminotransferase 30 IU/L (17-59); BUN Creatinine Ratio 13.8 (6-22); Blood Urea Nitrogen 13 mg/dL (9-20); Calcium 9.4 mg/dL (8.4-10.2); Carbon Dioxide 24 mmol/L (22-32); Chloride 100 mmol/L (98-107); Creatine Kinase 75 U/L (55-170); Estimated Glomerular Filt Rate > 60.0 mL/min (>60); Globulin 3.1 g/dL (1.7-4.1); Glucose 135 mg/dL (80-110); HEMOLYSIS < 15 (0-50); Lipase 44 U/L (23-300); Potassium 3.8 mmol/L (3.4-5.1); Sodium 135 mmol/L (137-145); Total Protein 7.4 g/dL (6.3-8.2)
--- NOTE | 2021-05-31 10:32 | ED_ITS ---
HPI - Abdominal Pain General Chief Complaint: Abdominal Pain Stated Complaint: Lower Rt abd pain into chest x 2days Time Seen by Provider: 05/31/21 10:30 Source: patient Mode of arrival: Ambulatory Limitations: no limitations History of Present Illness HPI narrative: The patient presents with right lower quadrant pain. He had onset of pain yesterday. Pain persisted through the night. Pain is now more severe, focused to the right lower quadrant. Pain radiates to his back. He has developed fever. He has loss of appetite, no nausea vomiting. He complains of mild dysuria, no hematuria. He has no history of kidney stones. He has no history of chronic GI problems, or GI/ surgeries. He has a prior to shoulder surgery and is due to have lumbar surgery. It is noted he is on medications for hypertension and hyperlipidemia. He has a history of CAD. He had an FL 2 years ago, stents were placed. He is having no cardiopulmonary symptoms at this time. He has received a COVID vaccine. He is clinically managed for chronic back pain. Related Data Home Medications Medication Instructions Recorded Confirmed acetaminophen 325 mg capsule 650 mg PO Q6H PRN 09/15/19 05/31/21 (Tylenol) losartan 25 mg tablet 25 mg PO DAILY 09/15/19 05/31/21 metoprolol succinate 25 mg 25 mg PO DAILY 09/15/19 05/31/21 tablet,extended release 24 hr (Toprol XL) nitroglycerin 0.4 mg sublingual 0.4 mg SL Q5M PRN 09/15/19 05/31/21 tablet tamsulosin 0.4 mg capsule 0.4 mg PO DAILY 09/15/19 05/31/21 trazodone 100 mg tablet 100 mg PO DAILY 09/15/19 05/31/21 valacyclovir 500 mg tablet 500 mg PO DAILY 09/15/19 05/31/21 ezetimibe 10 mg tablet 10 mg PO DAILY 11/15/20 05/31/21 rosuvastatin 40 mg tablet 40 mg PO DAILY 11/15/20 05/31/21 aspirin 81 mg capsule 81 mg PO DAILY 05/31/21 05/31/21 duloxetine 30 mg capsule,delayed 30 mg PO DAILY 05/31/21 05/31/21 release sprinkle terbinafine HCl 250 mg tablet 250 mg PO DAILY 05/31/21 05/31/21 Previous Rx's Medication Instructions Recorded tramadol 50 mg tablet 50 mg PO BID PRN #60 tab 07/20/20 Allergies Allergy/AdvReac Type Severity Reaction Status Date / Time No Known Drug Allergies Allergy Verified 05/31/21 14:08 Review of Systems Constitutional Constitutional: Reports as per HPI, Denies body ache(s), Denies chills, Denies fatigue, Denies fever(s) and Denies headache(s) Eyes Eyes: Denies change in vision ENT Ears, Nose, Mouth, and Throat: Denies vertigo, Denies dizziness, Denies headache(s), Denies nasal congestion and Denies sore throat Cardiovascular Cardiovascular: Denies chest pain, Denies syncope, Denies rapid heart rate, Denies pedal edema, Denies lightheadedness and Denies dyspnea Respiratory Respiratory: Denies chest congestion, Denies cough and Denies dyspnea Gastrointestinal Gastrointestinal: Reports abdominal pain (See HPI), Denies change in stool character, Denies constipation, Denies nausea and Denies vomiting Genitourinary Genitourinary: Reports dysuria and Denies genital lesions Musculoskeletal Comments: Abdominal pain radiates to his back. Neurologic Neurologic: Denies confusion, Denies vertigo, Denies dizziness, Denies syncope and Denies headache(s) Psychiatric Psychiatric: Denies confusion Endocrine Endocrine: Denies fatigue Hematologic/Lymphatic On Anticoagulants: No Patient History Medical History Ascending aorta enlargement BPH (benign prostatic hyperplasia) CAD (coronary artery disease) Degenerative disc disease Degenerative joint disease of knee Hearing loss Heart attack High cholesterol History of colon polyps Kidney stones Non-STEMI (non-ST elevated myocardial infarction) (07/28/19) PEG (obstructive sleep apnea) Osteoarthritis Pre-diabetes RBBB (right bundle branch block) Ribs, multiple fractures (~2005) Seasonal allergies Surgical History H/O vasectomy (~1995) History of adenoidectomy History of shoulder surgery Hx of arthroscopic knee surgery Hx of fusion of cervical spine (~1995) Hx of heart artery stent (07/28/19) Status post laminectomy (~2011) Family History Father Stroke Mother Hypertension Brother Heart disease Stroke Social History household members: spouse Smoking Status: Never smoker alcohol intake: current Smoking Status: Never smoker alcohol intake frequency: holidays/special occasions only Substance Use Type: does not use Exam Initial Vital Signs Initial Vital Signs: Vital Signs Pulse Rate 87 05/31/21 09:54 Pulse Oximetry 92 05/31/21 09:54 Const General: cooperative, healthy appearing, comfortable and well groomed Nutritional Appearance: well nourished HENMT Head: normal to inspection, normocephalic and atraumatic Face and sinus: normal facial exam Mouth: oral mucosae normal Throat: posterior oropharynx normal Eyes Conjunctivae: conjunctivae normal Pupils: PERRL EOM: EOM intact bilaterally Neck Neck: No JVD Chest Chest: normal inspection of the chest Resp Auscultation: clear to auscultation bilaterally Cardio Rate: regular rate Rhythm: regular rhythm Heart Sounds: S1 normal, S2 normal and no murmurs GI Other: No distension. RLQ tenderness with guarding no rebound. No masses. Normal bowel sounds. Positive heel tap. Back/Spine/Pelvis Back: No CVA tenderness Skin General: no rashes or lesions noted Neuro General: patient alert, patient awake, patient oriented x3 and no focal motor deficits Extrem General: normal to inspection, full ROM, no pedal edema and no calf tenderness Psych Mental Status: mental status grossly normal Course Course Course Narrative: The patient's evaluation is confirmed acute appendicitis. He was given initial dose of Zosyn. He has received Dilaudid for pain. He is feeling better. The case was discussed with the on-call surgeon, Dr. Lange. The patient will be admitted. He may be a candidate for antibiotic treatment for appendicitis. That we determined as an inpatient. Orders Ordered: ED Orders 05/31/21 11:50 Blood Culture Stat Acetaminophen (Acetaminophen 325 Mg Tablet) 650 mg PO Q6H PRN PRN Reason: Pain, Mild (1-3) Hydrocodone Bitart/Acetaminophen (Hydrocodone/Acet 5/325 Tablet) 2 tab PO Q6HR PRN PRN Reason: Pain, Severe (7-10) Atorvastatin Calcium (Atorvastatin 20 Mg Tablet) 80 mg PO DAILY KAT Duloxetine HCl (Duloxetine 30 Mg Capsule) 30 mg PO DAILY KAT Ezetimibe (Ezetimibe 10 Mg Tablet) 10 mg PO DAILY [facility] Piperacillin Sod/Tazobactam (Sod 3.375 gm/ Sodium Chloride) 100 mls @ 25 mls/hr IV Q8H [facility] Last Admin: 05/31/21 18:12 Dose: 25 mls/hr Documented by: JUDY Losartan Potassium (Losartan 25 Mg Tablet) 25 mg PO DAILY [facility] Metoprolol Succinate (Metoprolol Er 25 Mg Tablet) 25 mg PO DAILY [facility] Nitroglycerin (Nitroglycerin 0.4 Mg Sl Tab) 0.4 mg SL Q5M PRN PRN Reason: Chest Pain Tamsulosin HCl (Tamsulosin 0.4 Mg Capsule) 0.4 mg PO DAILY [facility] Terbinafine HCl (Terbinafine Hcl 250 Mg Tablet) 250 mg PO DAILY [facility] Tramadol HCl (Tramadol 50 Mg Tablet) 50 mg PO BID PRN PRN Reason: pain Trazodone HCl (Trazodone 100 Mg Tablet) 100 mg PO DAILY [facility] Valacyclovir HCl (Valacyclovir 500 Mg Tablet) 500 mg PO DAILY [facility] Discontinued Medications Bupivacaine HCl/Epinephrine Bitart (Bupivacaine 0.25% W/ Epi 30 Ml Vial) 30 ml INJ INTRA-OP ONE Stop: 05/31/21 15:03 Last Admin: 05/31/21 15:02 Dose: 30 ml Documented by: GENIE Diphenhydramine HCl (Diphenhydramine 50 Mg/Ml Vial) 25 mg IV NOW ONE Stop: 05/31/21 12:09 Last Admin: 05/31/21 12:12 Dose: 25 mg Documented by: DWAYNE Fentanyl (Fentanyl 100 Mcg/2 Ml Inj) 0 mcg IV Q5M PRN PRN Reason: Pain, Moderate (4-6) Hydromorphone HCl (Hydromorphone 1 Mg Inj) 1 mg IV NOW ONE Stop: 05/31/21 10:32 Last Admin: 05/31/21 10:42 Dose: 1 mg Documented by: DWAYNE Hydromorphone HCl (Hydromorphone 2 Mg Inj) 0 mg IV Q5M PRN PRN Reason: Pain, Severe (7-10) Last Admin: 05/31/21 15:37 Dose: 0.5 mg Documented by: KEANU Sodium Chloride (Normal Saline 0.9%) 1,000 mls @ 1,000 mls/hr IV BOLUS ONE Stop: 05/31/21 10:57 Last Infusion: 05/31/21 12:17 Dose: 0 mls/hr Documented by: Admin: 05/31/21 10:23 Dose: 1,000 mls/hr Documented by: DWAYNE Piperacillin Sod/Tazobactam (Sod 4.5 gm/ Sodium Chloride) 100 mls @ 200 mls/hr IV NOW ONE Stop: 05/31/21 11:17 Last Infusion: 05/31/21 12:16 Dose: 0 mls/hr Documented by: Admin: 05/31/21 11:39 Dose: 200 mls/hr Documented by: DWAYNE Metoclopramide HCl 10 mg/ (Sodium Chloride) 52 mls @ 208 mls/hr IV NOW ONE Stop: 05/31/21 12:09 Last Infusion: 05/31/21 12:31 Dose: 0 mls/hr Documented by: Admin: 05/31/21 12:13 Dose: 208 mls/hr Documented by: DWAYNE Lactated Ringer's (Lactated Ringers) 1,000 mls @ 100 mls/hr IV CONT KAT Last Admin: 05/31/21 16:17 Dose: 100 mls/hr Documented by: Infusion: 05/31/21 16:17 Dose: 100 mls/hr Documented by: Admin: 05/31/21 13:37 Dose: 100 mls/hr Documented by: Infusion: 05/31/21 13:37 Dose: 100 mls/hr Documented by: Admin: 05/31/21 12:57 Dose: 100 mls/hr Documented by: MÓNICA Influenza Virus Vaccine (Influenza Vaccine Qiv 0.5 Ml Syringe) 0.5 ml IM .ONCE ONE Stop: 06/01/21 09:01 Non-Formulary Medication (Acetaminophen [Tylenol]) 650 mg PO Q6H PRN PRN Reason: Pain Non-Formulary Medication (Duloxetine) 30 mg PO DAILY KAT Non-Formulary Medication (Rosuvastatin) 40 mg PO DAILY [facility] Ondansetron HCl (Ondansetron 4 Mg/2 Ml Inj) 4 mg IV NOW PRN PRN Reason: Nausea And Vomiting Oxycodone/Acetaminophen (Oxycodone/Acetaminophen 5/325 Tablet) 1 tab PO [place] PRN PRN Reason: Mild or Moderate Pain Vital Signs Vital signs: Vital Signs - 8 hr 05/31/21 09:54 05/31/21 09:55 05/31/21 10:02 Temperature Pulse Rate 87 85 87 Respiratory Rate 26 H Blood Pressure 119/68 Pulse Oximetry 92 93 94 05/31/21 10:04 05/31/21 10:20 Temperature 101.4 F H Pulse Rate 83 81 Respiratory Rate 18 17 Blood Pressure 121/67 121/67 Pulse Oximetry 92 93 MDM - Abdominal Pain Lab Data Result diagrams: 05/31/21 10:05 05/31/21 10:05 Labs: Lab Results 05/31/21 05/31/21 05/31/21 Range/Units 10:05 10:05 10:05 WBC 16.7 H (4.5-11.0) X10^3/uL RBC 4.68 (4.5-5.9) X10^6/uL Hgb 14.7 (13.5-17.5) g/dL Hct 43.2 (41-53) % MCV 92.4 (80-100) fL MCH 31.3 (26-34) PG MCHC 33.9 (30-36) % RDW 13.9 (11.6-14.8) % Plt Count 168 (150-400) X10^3/uL Neut % (Auto) 87.2 H (50-75) % Lymph % (Auto) 3.2 L (25-40) % [place] % (Auto) 9.4 (3-14) % Eos % (Auto) 0.0 L (2-4) % Baso % (Auto) 0.2 (0-2) % Neut # (Auto) 31685 H (0096-3400) /uL Lymph # (Auto) 500 L (8442-4240) /uL [place] # (Auto) 1600 H (0-900) /uL Eos # (Auto) 0 (0-450) /uL Baso # (Auto) 0 (0-100) /uL Sodium 135 L (137-145) mmol/L Potassium 3.8 (3.4-5.1) mmol/L Chloride 100 (98-107) mmol/L Carbon Dioxide 24 (22-32) mmol/L BUN 13 (9-20) mg/dL Creatinine 0.94 (0.66-1.25) mg/dL Estimated GFR > 60.0 (>60) mL/min BUN/Creatinine Ratio 13.8 (6-22) Glucose 135 H (80-110) mg/dL Lactate 1.1 (0.7-2.1) mmol/L Calcium 9.4 (8.4-10.2) mg/dL Total Bilirubin 1.0 (0.2-1.3) mg/dL AST 30 (17-59) IU/L ALT 34 (<50) IU/L Alkaline Phosphatase 66 (38-126) U/L Total Creatine Kinase 75 (55-170) U/L CK-MB (CK-2) TNP CK-MB (CK-2) Rel Index TNP Troponin I < 0.012 (0.01-0.034) ng/mL Total Protein 7.4 (6.3-8.2) g/dL Albumin 4.3 (3.5-5.0) g/dL Globulin 3.1 (1.7-4.1) g/dL Albumin/Globulin Ratio 1.4 (1.0-2.8) Lipase 44 (23-300) U/L SARS-CoV-2 (PCR) (Negative) 05/31/21 Range/Units 10:15 WBC (4.5-11.0) X10^3/uL RBC (4.5-5.9) X10^6/uL Hgb (13.5-17.5) g/dL Hct (41-53) % MCV (80-100) fL MCH (26-34) PG MCHC (30-36) % RDW (11.6-14.8) % Plt Count (150-400) X10^3/uL Neut % (Auto) (50-75) % Lymph % (Auto) (25-40) % [place] % (Auto) (3-14) % Eos % (Auto) (2-4) % Baso % (Auto) (0-2) % Neut # (Auto) (8524-3922) /uL Lymph # (Auto) (5592-4092) /uL [place] # (Auto) (0-900) /uL Eos # (Auto) (0-450) /uL Baso # (Auto) (0-100) /uL Sodium (137-145) mmol/L Potassium (3.4-5.1) mmol/L Chloride (98-107) mmol/L Carbon Dioxide (22-32) mmol/L BUN (9-20) mg/dL Creatinine (0.66-1.25) mg/dL Estimated GFR (>60) mL/min BUN/Creatinine Ratio (6-22) Glucose (80-110) mg/dL Lactate (0.7-2.1) mmol/L Calcium (8.4-10.2) mg/dL Total Bilirubin (0.2-1.3) mg/dL AST (17-59) IU/L ALT (<50) IU/L Alkaline Phosphatase (38-126) U/L Total Creatine Kinase (55-170) U/L CK-MB (CK-2) CK-MB (CK-2) Rel Index Troponin I (0.01-0.034) ng/mL Total Protein (6.3-8.2) g/dL Albumin (3.5-5.0) g/dL Globulin (1.7-4.1) g/dL Albumin/Globulin Ratio (1.0-2.8) Lipase (23-300) U/L SARS-CoV-2 (PCR) Negative (Negative) Imaging Data Chest x-ray: Radiologist's Impression: No acute cardiopulmonary process. CT scan - abdomen/pelvis: Radiologist's Impression: Acute appendicitis. ECG Data Attestation: I personally reviewed and interpreted this ECG as follows: (Normal sinus rhythm rate 86 beats per minute. RBBB. No ectopy. No acute ST T wave ch anges.) Critical Care Time Critical Care Time Critical Care Time: Yes Total Critical Care Time: 40 Attestation: Critical care time includes initial assessment patient, review of medical records, and evaluation of Radiology, lab and EKG data. Findings were discussed with the patient. The on-call surgeon has been consulted. Discharge Plan Departure Patient Disposition: Admitted As Inpatient Clinical Impression: CAD (coronary artery disease), Hypertension, Hyperlipidemia, Chronic back pain Acute appendicitis Qualifiers: Acute appendicitis type: with localized peritonitis Appendicitis gangrene prese nce: without gangrene Appendicitis perforation presence: without perforation Appendicitis abscess presence: without abscess Qualified Code(s): K35.30 - Acute appendicitis with localized peritonitis, without perforation or gangrene Admit Date/Time: 05/31/21 11:23 Admit Provider: Elizabeth Lange
[2021-05-31 10:42] LABS: Troponin I < 0.012 ng/mL (0.01-0.034)
[2021-05-31] MEDS: HYDROMORPHONE 1 MG INJ IV (10:42)
[2021-05-31 10:45] LABS: COVID19 -Nasal RAPID Negative (Negative)
[2021-05-31] MEDS: PIPERACILLIN/TAZO 4.5 GM in SODIUM CHLORIDE 0.9% 100 ML 200 ML IV (11:39)
[2021-05-31] MEDS: diphenhydrAMINE 50 MG/ML VIAL 25 MG IV (12:12)
[2021-05-31] MEDS: METOCLOPRAMIDE 10 MG in SODIUM CHLORIDE 0.9% 50 ML 208 ML IV (12:13)
--- NOTE | 2021-05-31 12:49 | PM.HP.1 ---
History of Present Illness History of Present Illness Date Patient Seen: 05/31/21 Time Patient Seen: 12:49 Date of Onset of Symptoms: 05/30/21 Chief complaint: Lower Rt abd pain into chest x 2days Narrative: Abdominal pain starting yesterday. Fever and nausea, no diarrhea. No previous episodes. Patient History Medical History Ascending aorta enlargement BPH (benign prostatic hyperplasia) CAD (coronary artery disease) Degenerative disc disease Degenerative joint disease of knee Hearing loss Heart attack High cholesterol History of colon polyps Kidney stones Non-STEMI (non-ST elevated myocardial infarction) (07/28/19) PEG (obstructive sleep apnea) Osteoarthritis Pre-diabetes RBBB (right bundle branch block) Ribs, multiple fractures (~2005) Seasonal allergies Surgical History H/O vasectomy (~1995) History of adenoidectomy History of shoulder surgery Hx of arthroscopic knee surgery Hx of fusion of cervical spine (~1995) Hx of heart artery stent (07/28/19) Status post laminectomy (~2011) Family & Social History Family History Father Stroke Mother Hypertension Brother Heart disease Stroke Social History: household members spouse Safety & Behavioral: Feels Safe in Current Yes Environment Tobacco & Substance use: Smoking Status Never smoker alcohol intake current alcohol intake frequency holiday/special occasion Substance Use Type does not use Meds Home Medications and Allergies Home Medications Medication Instructions Recorded Confirmed Type acetaminophen 325 mg capsule 650 mg PO Q6H PRN 09/15/19 11/22/20 History (Tylenol) losartan 25 mg tablet 12.5 mg PO DAILY 09/15/19 11/22/20 History metoprolol succinate 25 mg 25 mg PO DAILY 09/15/19 11/22/20 History tablet,extended release 24 hr (Toprol XL) nitroglycerin 0.4 mg sublingual 0.4 mg SL Q5M PRN 09/15/19 11/15/20 History tablet tamsulosin 0.4 mg capsule 0.4 mg PO DAILY 09/15/19 11/22/20 History trazodone 100 mg tablet 100 mg PO DAILY 09/15/19 11/22/20 History valacyclovir 500 mg tablet 500 mg PO DAILY 09/15/19 11/22/20 History tramadol 50 mg tablet 50 mg PO BID PRN #60 tab 07/20/20 11/22/20 Rx ezetimibe 10 mg tablet 10 mg PO DAILY 11/15/20 11/22/20 History rosuvastatin 40 mg tablet 40 mg PO DAILY 11/15/20 11/22/20 History hydroxyzine pamoate 25 mg capsule 25 mg PO Q6HR PRN #30 cap 11/23/20 Rx oxycodone 5 mg tablet 5 mg PO Q4H PRN #40 tab 11/23/20 Rx acetaminophen 325 mg tablet 650 mg PO TID #90 tab 11/24/20 Rx oxycodone 10 mg tablet 10 mg PO Q3HR PRN #42 tab 11/24/20 Rx Allergies Allergy/AdvReac Type Severity Reaction Status Date / Time No Known Drug Allergies Allergy Verified 05/31/21 10:20 Review of Systems Review of Systems ROS: Yes All systems reviewed with the patient and are negative except as otherwise documented Exam Vital Signs (past 8 hours): - 05/31/21 09:54 05/31/21 09:55 05/31/21 10:02 Temperature Pulse Rate 87 85 87 Respiratory Rate 26 H Blood Pressure 119/68 Pulse Oximetry 92 93 94 05/31/21 10:04 05/31/21 10:20 05/31/21 10:30 Temperature 101.4 F H Pulse Rate 83 81 82 Respiratory Rate 18 17 22 Blood Pressure 121/67 121/67 103/61 Pulse Oximetry 92 93 93 05/31/21 11:00 05/31/21 11:30 05/31/21 11:36 Temperature Pulse Rate 83 85 90 Respiratory Rate 17 23 17 Blood Pressure 102/61 Pulse Oximetry 92 91 92 05/31/21 12:00 05/31/21 12:01 Temperature Pulse Rate 83 82 Respiratory Rate 19 12 Blood Pressure 109/64 Pulse Oximetry 93 92 Oxygen Delivery Method Room Air Const General: cooperative and ill appearing [facility] Head: normal to inspection, normocephalic and atraumatic Eyes Sclera: sclerae normal Neck Neck: trachea midline Chest Chest: normal inspection of the chest Resp Effort & Inspection: normal respiratory effort and able to speak in complete sentences Cardio Rate: regular rate Rhythm: regular rhythm GI Inspection: normal to inspection Palpation: soft and tender (RLQ) Skin General: elasticity normal and turgor normal Neuro General: patient alert, patient awake and patient oriented x3 Extrem General: full ROM Psych Appearance: grossly normal Affect: normal affect Judgment: judgment good Objective Labs Result Diagrams: 05/31/21 10:05 05/31/21 10:05 Labs: Laboratory Results - last 24 hr 05/31/21 05/31/21 05/31/21 10:05 10:05 10:05 WBC 16.7 H RBC 4.68 Hgb 14.7 Hct 43.2 MCV 92.4 MCH 31.3 MCHC 33.9 RDW 13.9 Plt Count 168 Neut % (Auto) 87.2 H Lymph % (Auto) 3.2 L [place] % (Auto) 9.4 Eos % (Auto) 0.0 L Baso % (Auto) 0.2 Neut # (Auto) 88537 H Lymph # (Auto) 500 L [place] # (Auto) 1600 H Eos # (Auto) 0 Baso # (Auto) 0 Sodium 135 L Potassium 3.8 Chloride 100 Carbon Dioxide 24 BUN 13 Creatinine 0.94 Estimated GFR > 60.0 BUN/Creatinine Ratio 13.8 Glucose 135 H Lactate 1.1 Calcium 9.4 Total Bilirubin 1.0 AST 30 ALT 34 Alkaline Phosphatase 66 Total Creatine Kinase 75 CK-MB (CK-2) TNP CK-MB (CK-2) Rel Index TNP Troponin I < 0.012 Total Protein 7.4 Albumin 4.3 Globulin 3.1 Albumin/Globulin Ratio 1.4 Lipase 44 SARS-CoV-2 (PCR) 05/31/21 10:15 WBC RBC Hgb Hct MCV MCH MCHC RDW Plt Count Neut % (Auto) Lymph % (Auto) [place] % (Auto) Eos % (Auto) Baso % (Auto) Neut # (Auto) Lymph # (Auto) [place] # (Auto) Eos # (Auto) Baso # (Auto) Sodium Potassium Chloride Carbon Dioxide BUN Creatinine Estimated GFR BUN/Creatinine Ratio Glucose Lactate Calcium Total Bilirubin AST ALT Alkaline Phosphatase Total Creatine Kinase CK-MB (CK-2) CK-MB (CK-2) Rel Index Troponin I Total Protein Albumin Globulin Albumin/Globulin Ratio Lipase SARS-CoV-2 (PCR) Negative Assessment & Plan Assessment & Plan narrative: Acute appendicitis, BMI 32.5, CAD dz. Plan: IV antibiotics now and lap appy COVID-19 COVID-19 status: Negative Time Spent With Patient Time with patient: 30 to 49 minutes with 50% spent counseling/coordinating care Critical Care time: I spent a total of [] minutes of critical care time on this patient's care today; this time is exclusive of procedural time.
[2021-05-31] MEDS: LACTATED RINGERS 1,000 ML 100 ML IV ×3 (12:57→16:17)
[2021-05-31 13:13] LABS: COVID19 - ADMIT (NP swab/PCR) Negative (Negative)
--- NOTE | 2021-05-31 14:53 | SUR.OPER ---
Supine on padded OR bed, head on pillow, left arm padded and tucked at side, right arm on padded arm board <90 degrees abduction, legs uncrossed, safety belt at thigh, tape over blanket over lower legs .
[2021-05-31] MEDS: BUPIVACAINE 0.25% W/ EPI 30 ML VIAL INJ (15:02)
[2021-05-31] MEDS: HYDROMORPHONE 2 MG INJ IV (15:37)
--- NOTE | 2021-05-31 15:45 | PM.OP.1 ---
Operative Date/Time/Diagnoses Date of procedure: 05/31/21 Time of procedure: 15:51 Pre-op diagnosis: acute appy Post-op diagnosis: other (ruptured appendicitis) Procedure & Clinicians Procedure: Laparoscopic appendectomy Same procedure as scheduled: Yes Indications: Appendicitis Surgeon: Elizabeth Lange Click Yes if Unassisted: Yes Anesthesia Type: General Operative Notes Findings: Ruptured appendicitis Closure Type: primary Specimen(s): other (Appendix) Estimated Blood Loss (mL): 15 Blood products transfused: none Procedure in detail: Preop diagnosis: Acute appendicitis Postop diagnosis: Ruptured appendicitis Procedure: Laparoscopic appendectomy Surgeon: Sudha Lange MD Findings: Ruptured appendicitis Procedure: Patient is placed in a supine position. Prepped and draped in a sterile fashion infraumbilical port site was placed using an open technique and a 12 mm port. Insufflation began in all other ports were placed under direct vision including a 5 mm port in suprapubic area and a 5 mm port in the left lower abdomen. Appendix was identified in the defect cephalad for exposure at which point purulent material was identified and gutter and in the pelvis. Appendix was positive for perforation Distal mesentery was taken down electrocautery. The base was healthy in nature and a NIKOLAY stapling device blue load was used for amputation. Appendix placed into an Endo-Catch bag and pulled through the infraumbilical port site intact. The abdomen was suctioned and irrigated to a clear return and a 15 Nicolas drain was placed into the pelvis looping up to their surgical site. This was brought out through the existing suprapubic port. I then removed all ports and began closure. Closure consisted of interrupted 0 Vicryl for fascial closure of the infraumbilical port site. All other skin was closed with a running 4-0 Vicryl. Steri-Strips and sterile dressings were placed. Patient was awaken, extubated, taken to recovery room in stable condition. Needle, instrument, sponge counts were correct. Specimen: Appy Blood loss: 15 mL Complications: none Post-operative Condition: stable Disposition: PACU
--- NOTE | 2021-05-31 16:06 | SUR.PHASEI ---
Pt resting comfortably, hypotensive, systolic 80's, MDA notified , LR bolus ordered and being administed, pt in trendelenburg, will continue to monitor and reeval.
--- NOTE | 2021-05-31 17:10 | SUR.PHASEI ---
Two 1000ml bolus LR given in PACU for hypotension. Pressure up to 98/80 at 1455, transported to 206 in stable condition.
--- NOTE | 2021-05-31 17:28 | PC.NURSE ---
Addendum entered by Richi Palma R.N. 05/31/21 19:16: Pt wakes intermittently. Offers no overt c/o. continues attentive at bedside. Surgical sites continue intact. Original Note: Pt arrived via Pacu accompanied by two RN's attentive in room. Vital signs stable though B/p tracking low with 80's/50's Doc aware. Continue with IV fluids. Discussed plan of care with . Pt aware he is back in his room, answers questions appropriately. Voiding, ERIC drained 30 cc.
[2021-05-31] MEDS: PIPERACILLIN/TAZO 3.375 GM in SODIUM CHLORIDE 0.9% 100 ML 25 ML IV (18:12)
[2021-05-31] MEDS: valACYclovir 500 MG TABLET PO (20:31)
[2021-05-31] MEDS: EZETIMIBE 10 MG TABLET PO (20:31)
[2021-05-31] MEDS: LOSARTAN 25 MG TABLET PO (20:31)
[2021-05-31] MEDS: TRAZODONE 100 MG TABLET PO (20:33)
[2021-05-31] MEDS: TRAMADOL 50 MG TABLET PO (20:38)
[2021-05-31] MEDS: HYDROCODONE/ACET 5/325 TABLET 2 TAB PO (22:55)
[2021-06-01] VITALS (11 sets, daily range): BP systolic 94–126; BP diastolic 50–70; PULSE 56–80; RESP 16–18; TEMP 36.2–38; O2SAT 92–95
[2021-06-01] MEDS: PIPERACILLIN/TAZO 3.375 GM in SODIUM CHLORIDE 0.9% 100 ML 25 ML IV ×3 (00:19→16:52)
[2021-06-01] MEDS: HYDROCODONE/ACET 5/325 TABLET 2 TAB PO ×2 (04:45→13:38)
[2021-06-01] MEDS: DULOXETINE 30 MG CAPSULE PO (09:06)
[2021-06-01] MEDS: TAMSULOSIN 0.4 MG CAPSULE PO (09:06)
[2021-06-01] MEDS: DOCUSATE 100 MG CAPSULE 200 MG PO ×2 (10:41→20:44)
[2021-06-01] MEDS: terbinafine HCL 250 MG TABLET PO (10:41)
[2021-06-01] MEDS: polyethylene glycoL 3350 17 GM POWD.PACK PO ×2 (10:42→20:45)
[2021-06-01 13:12] LABS: Add Manual Diff / Slide Review NO; Basophils Absolute Auto 0 /uL (0-100); Basophils Percent Auto 0.1 % (0-2); Eosinophils Absolute Auto 0 /uL (0-450); Hematocrit 40.8 % (41-53); Hemoglobin 13.5 g/dL (13.5-17.5); Lymphocytes Absolute Auto 700 /uL (1100-4500); Lymphocytes Percent Auto 3.4 % (25-40); Mean Corpuscular HGB Conc 33.2 % (30-36); Mean Corpuscular Hemoglobin 31.2 PG (26-34); Mean Corpuscular Volume 94.1 fL (80-100); Monocytes Absolute Auto 1600 /uL (0-900); Monocytes Percent Auto 7.5 % (3-14); Neutrophils Absolute Auto 19100 /uL (1500-7000); Platelet Count 142 X10^3/uL (150-400); Red Blood Cell Count 4.33 X10^6/uL (4.5-5.9); Red Cell Distribution Width 13.8 % (11.6-14.8); White Blood Cell Count 21.5 X10^3/uL (4.5-11.0)
--- NOTE | 2021-06-01 14:49 | PM.PNPO.1 ---
Subjective Subjective Date Patient Seen: 06/01/21 Time Patient Seen: 14:50 Interval history: No BM for the last 3 days. Right lower quadrant is tender to movement and straining. [place] does not affect his pain. Exam Vital Signs (past 8 hours): - 06/01/21 08:12 06/01/21 09:05 06/01/21 09:10 Temperature 97.2 F L Pulse Rate 63 Respiratory Rate 18 Blood Pressure 102/57 L 94/50 L Pulse Oximetry 95 93 06/01/21 09:15 06/01/21 13:41 Temperature 98.6 F Pulse Rate 62 Respiratory Rate 18 Blood Pressure 115/66 Pulse Oximetry 92 94 Oxygen Delivery Method Room Air Oxygen Flow Rate 0 Narrative Exam Narrative: Abdomen is soft with a localized right lower quadrant tenderness. Drain is serosanguineous. Objective Labs Result Diagrams: 06/01/21 12:30 05/31/21 10:05 Labs: Laboratory Results - last 24 hr 06/01/21 12:30 WBC 21.5 H RBC 4.33 L Hgb 13.5 Hct 40.8 L MCV 94.1 MCH 31.2 MCHC 33.2 RDW 13.8 Plt Count 142 L Neut % (Auto) 89.0 H Lymph % (Auto) 3.4 L [place] % (Auto) 7.5 Eos % (Auto) 0.0 L Baso % (Auto) 0.1 Neut # (Auto) 44355 H Lymph # (Auto) 700 L [place] # (Auto) 1600 H Eos # (Auto) 0 Baso # (Auto) 0 PFSH Medical History Ascending aorta enlargement BPH (benign prostatic hyperplasia) CAD (coronary artery disease) Degenerative disc disease Degenerative joint disease of knee Hearing loss Heart attack High cholesterol History of colon polyps Kidney stones Non-STEMI (non-ST elevated myocardial infarction) (07/28/19) PEG (obstructive sleep apnea) Osteoarthritis Pre-diabetes RBBB (right bundle branch block) Ribs, multiple fractures (~2005) Seasonal allergies Surgical History H/O vasectomy (~1995) History of adenoidectomy History of shoulder surgery Hx of arthroscopic knee surgery Hx of fusion of cervical spine (~1995) Hx of heart artery stent (07/28/19) Status post laminectomy (~2011) Family History Father Stroke Mother Hypertension Brother Heart disease Stroke Social History household members: spouse Smoking Status: Never smoker alcohol intake: current Assessment & Plan Post-op Postoperative Procedures: Procedures Operation Date: 05/31/21 14:15 Actual Procedure Side Surgeon p Laparoscopic Appendectomy Not Applicable Elizabeth Lange MD Postoperative status narrative: White count remains elevated at 22,000 two thousand. Right lower quadrant abdominal pain likely secondary to operative intervention, inadequate pain control, and presence of drain. Postoperative plan narrative: Continue IV antibiotics. Change to Dilaudid p.o. for pain medication. Add Celebrex b.i.d. for pain control. Daily CBC and CMP. Hold discharge. Continue drain Time Spent With Patient Time with patient: 15-24 minutes Quality VTE Deep Vein Thrombosis/Pulmonary Embolism Present on Admission: No
[2021-06-01] MEDS: CELECOXIB 200 MG CAPSULE PO ×2 (16:51→20:42)
[2021-06-01] MEDS: CALCIUM CARBONATE 500 MG TAB PO (18:59)
[2021-06-01] MEDS: valACYclovir 500 MG TABLET PO (20:42)
[2021-06-01] MEDS: EZETIMIBE 10 MG TABLET PO (20:42)
[2021-06-01] MEDS: TRAZODONE 100 MG TABLET PO (20:42)
[2021-06-01] MEDS: HYDROMORPHONE 4 MG TABLET PO (20:43)
[2021-06-01] MEDS: ACETAMINOPHEN 325 MG TABLET 650 MG PO (20:43)
[2021-06-01] MEDS: LOSARTAN 25 MG TABLET PO (20:44)
--- NOTE | 2021-06-01 23:34 | PC.NURSE ---
patient is alert/oriented, voices needs. SBA for transfers and ambulation. steady gait. s/p POD#1. ABD slightly distended, patient guarded, reports pain mostly w/ movement. PRN Dilauded 4mg PO given x 1 for BTP 8/10, this was effective. 2345: Tolerated OOB to shower, min assist. reports belching but no BM. Active BT, encouraged PO fluids. small bandaid covering a previously infected cyst removed, this was removed after shower, area cleansed and covered w/ fresh bandaid. ERIC drain is draining large amounts of serous fluid, one large yellow 50c piece sized clot collected.
[2021-06-02] MEDS: CALCIUM CARBONATE 500 MG TAB PO ×2 (00:07→07:50)
[2021-06-02] MEDS: PIPERACILLIN/TAZO 3.375 GM in SODIUM CHLORIDE 0.9% 100 ML 25 ML IV ×2 (01:02→08:15)
[2021-06-02 06:48] VITALS: BP 110/76; PULSE 70; RESP 16; TEMP 37; O2SAT 94
[2021-06-02 06:51] LABS: Add Manual Diff / Slide Review NO; Basophils Absolute Auto 100 /uL (0-100); Basophils Percent Auto 0.4 % (0-2); Eosinophils Absolute Auto 100 /uL (0-450); Eosinophils Percent Auto 0.9 % (2-4); Hematocrit 42.8 % (41-53); Hemoglobin 14.3 g/dL (13.5-17.5); Lymphocytes Absolute Auto 1400 /uL (1100-4500); Lymphocytes Percent Auto 9.4 % (25-40); Mean Corpuscular HGB Conc 33.4 % (30-36); Mean Corpuscular Hemoglobin 31.1 PG (26-34); Mean Corpuscular Volume 93.2 fL (80-100); Monocytes Absolute Auto 1400 /uL (0-900); Neutrophils Absolute Auto 12100 /uL (1500-7000); Neutrophils Percent Auto 80.3 % (50-75); Platelet Count 166 X10^3/uL (150-400); Red Blood Cell Count 4.59 X10^6/uL (4.5-5.9); White Blood Cell Count 15.1 X10^3/uL (4.5-11.0)
[2021-06-02 07:01] LABS: Alanine Aminotransferase 24 IU/L (<50); Albumin 3.5 g/dL (3.5-5.0); Albumin Globulin Ratio 1.2 (1.0-2.8); Alkaline Phosphatase 54 U/L (38-126); Aspartate Aminotransferase 24 IU/L (17-59); BUN Creatinine Ratio 20.4 (6-22); Bilirubin Total 0.4 mg/dL (0.2-1.3); Blood Urea Nitrogen 19 mg/dL (9-20); Calcium 8.9 mg/dL (8.4-10.2); Carbon Dioxide 30 mmol/L (22-32); Chloride 103 mmol/L (98-107); Estimated Glomerular Filt Rate > 60.0 mL/min (>60); Glucose 133 mg/dL (80-110); HEMOLYSIS < 15 (0-50); Potassium 3.8 mmol/L (3.4-5.1); Sodium 137 mmol/L (137-145); Total Protein 6.5 g/dL (6.3-8.2)
[2021-06-02] MEDS: HYDROMORPHONE 4 MG TABLET PO (08:06)
[2021-06-02] MEDS: CELECOXIB 200 MG CAPSULE PO (08:13)
[2021-06-02] MEDS: TAMSULOSIN 0.4 MG CAPSULE PO (08:13)
[2021-06-02] MEDS: polyethylene glycoL 3350 17 GM POWD.PACK PO (08:13)
[2021-06-02] MEDS: DULOXETINE 30 MG CAPSULE PO (08:13)
[2021-06-02] MEDS: DOCUSATE 100 MG CAPSULE 200 MG PO (08:13)
[2021-06-02] MEDS: terbinafine HCL 250 MG TABLET PO (08:14)
[2021-06-02] MEDS: ATORVASTATIN 20 MG TABLET 80 MG PO (08:15)
[2021-06-02 08:29] VITALS: BP 113/72; PULSE 71
[2021-06-02] MEDS: METOPROLOL ER 25 MG TABLET PO (08:29)
--- NOTE | 2021-06-02 09:30 | PM.PNPO.1 ---
Subjective Subjective Date Patient Seen: 06/02/21 Time Patient Seen: 09:30 Interval history: Better pain control. Still no BM. Wants to discharge today b/c tomorrow is his mother's . Exam Vital Signs (past 8 hours): - 06/02/21 06:48 06/02/21 08:29 Temperature 98.6 F Pulse Rate 70 71 Respiratory Rate 16 Blood Pressure 110/76 113/72 Pulse Oximetry 94 Oxygen Delivery Method Room Air Oxygen Flow Rate 0 Narrative Exam Narrative: Drain is serous. No incidents over night Abdomen is soft wounds intact. WBC 15 down from 22 Objective Labs Result Diagrams: 06/02/21 06:05 06/02/21 06:05 Labs: Laboratory Results - last 24 hr 06/01/21 06/02/21 06/02/21 12:30 06:05 06:05 WBC 21.5 H 15.1 H RBC 4.33 L 4.59 Hgb 13.5 14.3 Hct 40.8 L 42.8 MCV 94.1 93.2 MCH 31.2 31.1 MCHC 33.2 33.4 RDW 13.8 14.0 Plt Count 142 L 166 Neut % (Auto) 89.0 H 80.3 H Lymph % (Auto) 3.4 L 9.4 L [place] % (Auto) 7.5 9.0 Eos % (Auto) 0.0 L 0.9 L Baso % (Auto) 0.1 0.4 Neut # (Auto) 37385 H 50263 H Lymph # (Auto) 700 L 1400 [place] # (Auto) 1600 H 1400 H Eos # (Auto) 0 100 Baso # (Auto) 0 100 Sodium 137 Potassium 3.8 Chloride 103 Carbon Dioxide 30 BUN 19 Creatinine 0.93 Estimated GFR > 60.0 BUN/Creatinine Ratio 20.4 Glucose 133 H Calcium 8.9 Total Bilirubin 0.4 AST 24 ALT 24 Alkaline Phosphatase 54 Total Protein 6.5 Albumin 3.5 Globulin 3.0 Albumin/Globulin Ratio 1.2 PFSH Medical History Ascending aorta enlargement BPH (benign prostatic hyperplasia) CAD (coronary artery disease) Degenerative disc disease Degenerative joint disease of knee Hearing loss Heart attack High cholesterol History of colon polyps Kidney stones Non-STEMI (non-ST elevated myocardial infarction) (07/28/19) PEG (obstructive sleep apnea) Osteoarthritis Pre-diabetes RBBB (right bundle branch block) Ribs, multiple fractures (~2005) Seasonal allergies Surgical History H/O vasectomy (~1995) History of adenoidectomy History of shoulder surgery Hx of arthroscopic knee surgery Hx of fusion of cervical spine (~1995) Hx of heart artery stent (07/28/19) Status post laminectomy (~2011) Family History Father Stroke Mother Hypertension Brother Heart disease Stroke Social History household members: spouse Smoking Status: Never smoker alcohol intake: current Assessment & Plan Post-op Postoperative Procedures: Procedures Operation Date: 05/31/21 14:15 Actual Procedure Side Surgeon p Laparoscopic Appendectomy Not Applicable Elizabeth Lange MD Postoperative day: 2 Postoperative status: doing well Postoperative plan narrative: Switch to po antibiotics Mag Citrate for constipation remove drain Potential discharge home later today if successful with BM. Quality VTE Deep Vein Thrombosis/Pulmonary Embolism Present on Admission: No
[2021-06-02 10:20] VITALS: BP 113/72; PULSE 71; RESP 17; TEMP 36.7; O2SAT 96
[2021-06-02 11:30] VITALS: BP 106/71; PULSE 82
[2021-06-02] MEDS: MAGNESIUM CITRATE 300 ML SOLUTION PO (12:34)
[2021-06-02] MEDS: CIPROFLOXACIN 250 MG TABLET 750 MG PO (12:34)
--- NOTE | 2021-06-02 16:27 | CM.MNRNOTE ---
Pt A&Ox3 this a.m. c/o pain to abdomen 7/10 and reporting bloating gas pressure in abdomen. Pt medicated with prn tums and PRN dilaudid per his request with good effect, he reports pain level down to 2/10. Pt given miralax and docusate this a.m. MD at bedside medically clearing patient for discharge home after having a BM. He was given scheduled magnesium citrate, with positive effect of small BM late this afternoon. He denied n/v, + flatus, BS x4 +and with good po intake. Abdomen Soft and slightly tender to touch. Dressings c/d/i, some shadow drainage. ERIC drain dc'd per orders output. A total of 190 cc of yellow sangeonous output emptied throughout the shift from drain. Pt verbalizes understanding of medications, discharge, activity, inicision care as well as s/sx of infection. at bedside supportive. Pt escorted with all of his belongings via w/ch to private vehicle with at 1555 this afternoon.
--- NOTE | 2021-06-07 16:37 | PM.DS.1 ---
History of Present Illness History of Present Illness Chief complaint: Lower Rt abd pain into chest x 2days Narrative: Abdominal pain starting yesterday. Fever and nausea, no diarrhea. No previous episodes. Discharge Providers Provider Date of admission: 05/31/21 11:23 Discharge Date: 06/02/21 Primary care physician: Torin Newberry MD Discharge provider: Elizabeth Lange MD Summary Hospital Course Discharge Diagnosis: ruptured appendicitis Hospital Course: IV antibiotics, lap appy, and post op antibiotic +drain for ruptured appy Status at Discharge Cognitive/behavioral status at discharge: at baseline, oriented Functional status at discharge: independent ambulation Overall status at discharge: patient is progressing back to baseline Time Spent with Patient Time spent: Less than 30 minutes Exam Vital Signs (past 8 hours): Oxygen Delivery Method Room Air Oxygen Flow Rate 0 Narrative Exam Narrative: incisional tenderness, no infections, abdomen benign Objective Labs Result Diagrams: 06/02/21 06:05 06/02/21 06:05 [facility] Medical History Ascending aorta enlargement BPH (benign prostatic hyperplasia) CAD (coronary artery disease) Degenerative disc disease Degenerative joint disease of knee Hearing loss Heart attack High cholesterol History of colon polyps Kidney stones Non-STEMI (non-ST elevated myocardial infarction) (07/28/19) PEG (obstructive sleep apnea) Osteoarthritis Pre-diabetes RBBB (right bundle branch block) Ribs, multiple fractures (~2005) Seasonal allergies Surgical History (Updated 06/02/21 @ 09:37 by Nadia Maki RN) H/O vasectomy (~1995) History of adenoidectomy History of laparoscopic appendectomy (05/31/21) History of shoulder surgery History of total left knee replacement (11/22/20) Hx of arthroscopic knee surgery Hx of fusion of cervical spine (~1995) Hx of heart artery stent (07/28/19) Status post laminectomy (~2011) Family History Father Stroke Mother Hypertension Brother Heart disease Stroke Social History household members: spouse Smoking Status: Never smoker alcohol intake: current Discharge Assessment & Plan Assessment and Plan Assessment: ruptured appy Plan of Treatment: Home on po antibiotics for 5 more days. Discharge Plan Discharge Plan Patient Disposition: Home Provider Discharge Comment: may discharge this afternoon if has BM and feels ok Discharge orders & Medications Prescriptions: New celecoxib [Celebrex] 200 mg Capsule 200 mg PO BID Qty: 30 1RF ciprofloxacin HCl 250 mg Tablet 750 mg PO 0700,2100 Qty: 10 0RF hydromorphone 4 mg Tablet 4 mg PO Q6HR PRN (Reason: Pain, Severe (7-10)) Qty: 30 0RF Continued tramadol 50 mg tablet 50 mg PO BID PRN (Reason: pain) Qty: 60 0RF ezetimibe 10 mg Tablet 10 mg PO DAILY 0RF rosuvastatin 40 mg Tablet 40 mg PO DAILY 0RF terbinafine HCl 250 mg Tablet 250 mg PO DAILY 0RF duloxetine 30 mg Capsule, Delayed Rel Sprinkle 30 mg PO DAILY 0RF aspirin 81 mg Capsule 81 mg PO DAILY 0RF acetaminophen [Tylenol] 325 mg capsule 650 mg PO Q6H PRN (Reason: Pain) 0RF losartan 25 mg tablet 25 mg PO DAILY 0RF Rx Instructions: Takes at bedtime metoprolol succinate [Toprol XL] 25 mg tablet extended release 24 hr 25 mg PO DAILY 0RF nitroglycerin 0.4 mg tablet, sublingual 0.4 mg SL Q5M PRN (Reason: Chest Pain) 0RF tamsulosin 0.4 mg capsule 0.4 mg PO DAILY 0RF trazodone 100 mg tablet 100 mg PO DAILY 0RF valacyclovir 500 mg tablet 500 mg PO DAILY 0RF Rx Instructions: Takes at bedtime Follow up/Referrals: Torin Newberry MD [Primary Care Provider] - Diet/Activity/Treatments Diet: Diet as Tolerated Activity: no lifting greater than 15 lbs for 4 weeks Skin/Wound/Dressing Care Dressing: remove cover dressing and shower. Replace dressing only as needed for comfort or drainage. Visit Report/Discharge Packet Instructions: DI for an Appendectomy, DI for Prescription Opioid Use, Ciprofloxacin Stand Alone Forms: Surgery Discharge Discharge Data Primary Care Provider: Torin Newberry Quality VTE Deep Vein Thrombosis/Pulmonary Embolism Present on Admission: No
== END 2021-06-02 16:25 | disposition home or self-care (01) | DRG 340 ==
LOC: ED 11:23 → AC 11:24
PROVIDERS: Admitting Provider Surgery; Emergency Provider Emergency Medicine; PCP Family Medicine; Referring Provider Emergency Medicine; Visit Provider Surgery
PROC: 0DTJ4ZZ Resection of Appendix, Percutaneous Endoscopic Approach (ICD-10-PCS; CPT 44970; principal; 2021-05-31 14:15)
DX: K35.32 Acute appendicitis with perforation, localized peritonitis, and gangrene, without abscess (principal); K59.00 Constipation, unspecified; I25.10 Atherosclerotic heart disease of native coronary artery without angina pectoris; E78.5 Hyperlipidemia, unspecified; N40.0 Benign prostatic hyperplasia without lower urinary tract symptoms; Z95.5 Presence of coronary angioplasty implant and graft; Z20.822 Contact with and (suspected) exposure to COVID-19
CPT/HCPCS: 36415; 44970; 71045; 74177; 80053; 82550; 82962; 83605; 83690; 84484; 85025; 87040; 87635; 93005; 93010; 94760; 94762; 96361; 96365; 96375; 99222; 99285; 99291; C9803; J1100; J1170; J1200; J1885; J2250; J2405; J2543; J2704; J2765; J3010; Q9967

== ENCOUNTER → 2021-06-13 12:55 | Outpatient (CLI) | payer OTHER, SELFPAY ==
[2021-05-31 11:52] VITALS: BMI 32.5
[2021-06-13 16:30] LABS: COVID19 -Nasal RAPID Negative (Negative)
== END ==
PROVIDERS: PCP Family Medicine; Visit Provider Nurse Practitioner Family
DX: Z20.822 Contact with and (suspected) exposure to COVID-19 (principal)
CPT/HCPCS: 87635

== ENCOUNTER 2021-06-15 09:47 | Day surgery (SDC) | payer OTHER, SELFPAY ==
[2021-02-01 13:30] VITALS: BMI 33.2
[2021-05-31 11:52] VITALS: BMI 32.5
[2021-06-09 10:54] VITALS: BMI 33.0
[2021-06-15] VITALS (20 sets, daily range): BP systolic 86–114; BP diastolic 39–89; PULSE 63–79; RESP 9–18; TEMP 36.1–36.7; O2SAT 91–98; BMI 33.0
--- NOTE | 2021-06-15 | DI.RAD.S_ITS ---
PROCEDURE: XR LUMBAR SPINE 2-3V INDICATIONS: L4-5 TLIF TECHNIQUE: 3 low resolution intraoperative fluoroscopic spot films were obtained of the lower lumbar spine. COMPARISON: None. FINDINGS: Low resolution fluoroscopic spot films show fusion cage in the L4-5 disc space with associated posterior satya and screw instrumentation in good position. IMPRESSION: Fluoroscopic guidance Approved by: Felipe Wylie M.D. on 06/15/2021 at 14:24
[2021-06-15] MEDS: LACTATED RINGERS 1,000 ML 42 ML IV ×2 (10:37→13:10)
--- NOTE | 2021-06-15 10:45 | PM.PREOP ---
Pre-operative Note COVID-19 COVID-19 status: Negative Result date/Date tested (Pos, Neg/Pending): 06/13/21 Interval Note History & Physical reviewed/Exam performed by Physician: Yes Changes to H&P: No
[2021-06-15] MEDS: CEFAZOLIN 2 GM/20 ML SYRINGE IV ×2 (11:39→20:49)
--- NOTE | 2021-06-15 11:46 | SUR.OPER ---
Prone on spine table, head in foam head support, padded chest and pelvic supports, gel pad at knees, lower legs supported by pillows; nipples, genitalia and toes free of pressure, arms secured on foam padded arm boards at <90 degrees abduction. Tape over blanket at thigh secured to table.
[2021-06-15] MEDS: BUPIVACAINE 0.25% (PF) 30 ML, EPINEPHrine 0.3 MG INJ (11:52)
[2021-06-15] MEDS: BUPIVACAINE LIPOSOME 266 MG/20 ML VIAL INJ (11:53)
--- NOTE | 2021-06-15 14:04 | P.OP_ITS ---
Operative Date/Time/Diagnoses Date of procedure: 06/15/21 Time of procedure: 11:00 Pre-op diagnosis: 1. L4-5 spinal stenosis with neurogenic claudication 2. L4-5 spondylosis with radiculopathy Post-op diagnosis: same Procedure & Clinicians Procedure: 1. L4-5 Postero-lateral and posterior interbody fusion 2. L4-5 interbody cage placement. 3. L4-5 decompressive laminectomy with bilateral facetecomies 4. L4-5 Posterior non-segmental instrumentation 5. [place] of bone marrow from iliac crest 6. Utilization of microsurgical technique and operating microscope Same procedure as scheduled: Yes Indications: Patient has been having chronic back pain and worsening lumbar radiculopathy. Patient failed multiple conservative management with worsening pain weakness and numbness in her lower extremity. Patient has been having difficulty performing activity of daily living. After discussing risks benefits of treatment options, patient elected proceed with surgery. Surgeon: Clive Sanchez Internet Marketing Analyst: Jame Sepulveda Click Yes if Unassisted: No Anesthesia Type: General Operative Notes Closure Type: primary Specimen(s): none sent Prosthetic devices, grafts, tissues, transplants, or devices: Globus revolve screws, Rise cage Estimated Blood Loss (mL): 50 Blood products transfused: none Procedure in detail: Patient was seen in the preoperative area. Risks and benefits of the surgery was discussed with the patient. Informed consent was obtained from the patient and placed in the chart. Surgical site was marked. Patient was taken to the operative room. General anesthesia was administered. Prophylactic antibiotic was given to the patient less than 30 min before the incision was made. Patient was placed into a prone position on the [place] table. Patient's back was then prepped and draped in the sterile fashion. Time-out was performed at this time. Using AP and lateral C-arm imaging the interval between L4-5 was identified and marked on patient's back. A 2 inch incision 2 in from midline was made on the left side first. The fascia was incised in line with skin incision. Globus MARS retractors was placed inside the incision and docked onto the L4 lamina. Using microsurgical technique and operating microscope, a L4 laminectomy and L4-5 facetectomy was performed using a [place] rongeur. The disc space at L4-5 was identified. And a total diskectomy was performed at L4-5 level. The endplates were decorticated using a rasp and shaver. The total diskectomy and decortication was performed at L4-5 level in order to to accomplish a L4-5 fusion. The local bone from the laminectomy and facetectomy was saved for local bone grafting. After the total diskectomy and decortication was completed, Trifecta bone graft material was combined with local bone that was harvested earlier. At this time, a separate skin is incision was made over the iliac crest. A Jamshidi needle was inserted into the iliac crest through a separate skin incision. 5 cc of bone marrow aspiration was obtained through the separate skin incision using a Jamshidi needle from the iliac crest. The bone marrow aspiration was combined with local bone and the Trifecta bone grafting material. The bone grafting material was placed into the L4-5 interbody space along with a expandable cage. The cage was expanded to its maximum height using the torque limiting screwdriver. At this time a mirror image incision was made on the right side. The fascia was incised in line with the skin incision. Globus MARS retractor was inserted and docked onto the L4-5 posterolateral gutter. Using the power drill, posterior- lateral decortication was performed at L4-5 level until bleeding cortical bone was identified. The remaining bone grafting material was placed into the L4-5 posterior lateral gutter he order to accomplish posterolateral fusion at the L4- 5 level. Using the double C-arm technique, pedicle screws were placed into the L4-5 pedicles bilaterally. This was done by placing the Jamshidi needle into the pedicles, then placing the guidewires over the Jamshidi needle, and finally placing the cannulated screws over the guidewires bilaterally. After the pedicle screws were placed, 2 titanium rods was locked into the heads of the pedicle sc rews using locking caps and torque limiting screwdriver. After all the hardware was placed, and confirmed with AP and lateral C-arm imaging, the wound was then irrigated with sterile normal saline and packed with Ray-Sammi gauze for 3 min to accomplish hemostasis. After the gauze was removed the deep fascia was closed with #1 Vicryl suture. The subcutaneous layer was closed with 2-0 Vicryl. The skin was closed with skin adrienne. Patient tolerated the procedure well. There were no complications. Complications: none Post-operative Condition: stable Disposition: PACU Plan for aftercare: Admit to inpatient hospital
[2021-06-15] MEDS: fentaNYL 100 MCG/2 ML INJ IV ×2 (14:22→14:48)
[2021-06-15] MEDS: hydrOXYzine 50 MG/ML INJ IM (14:27)
[2021-06-15] MEDS: HYDROMORPHONE 2 MG INJ IV (14:36)
--- NOTE | 2021-06-15 15:42 | SUR.PHASEI ---
Pt transported to room 205 with RNs. Bedside report to SHARAD Keenan.
[2021-06-15] MEDS: SODIUM CHLORIDE 0.9% 1,000 ML 100 ML IV (15:53)
--- NOTE | 2021-06-15 16:00 | PT-IP ANOTE ---
pt just came up to the floor a few minutes ago and is not ready for PT eval at this time. will f/u tomorrow.
[2021-06-15] MEDS: OXYCODONE IR 5 MG TABLET 10 MG PO ×2 (16:16→20:48)
[2021-06-15] MEDS: ACETAMINOPHEN 325 MG TABLET 650 MG PO (16:16)
[2021-06-15] MEDS: HYDROMORPHONE 0.5 MG INJ IV (17:48)
[2021-06-15] MEDS: DOCUSATE 100 MG CAPSULE PO (20:49)
[2021-06-15] MEDS: ATORVASTATIN 20 MG TABLET 80 MG PO (20:49)
[2021-06-15] MEDS: SENNOSIDES 8.6 MG TABLET 17.2 MG PO (20:49)
[2021-06-16] MEDS: ACETAMINOPHEN 325 MG TABLET 650 MG PO (00:23)
[2021-06-16] MEDS: OXYCODONE IR 5 MG TABLET 10 MG PO ×3 (00:23→12:44)
[2021-06-16] MEDS: SODIUM CHLORIDE 0.9% 1,000 ML 100 ML IV (02:07)
[2021-06-16] MEDS: CEFAZOLIN 2 GM/20 ML SYRINGE IV (05:37)
[2021-06-16 06:35] VITALS: BP 97/60; PULSE 67; RESP 16; TEMP 36.4; O2SAT 97
[2021-06-16] MEDS: DOCUSATE 100 MG CAPSULE PO (08:39)
[2021-06-16] MEDS: valACYclovir 500 MG TABLET PO (08:39)
[2021-06-16] MEDS: DULOXETINE 30 MG CAPSULE PO (08:39)
[2021-06-16] MEDS: EZETIMIBE 10 MG TABLET PO (08:40)
[2021-06-16] MEDS: terbinafine HCL 250 MG TABLET PO (08:41)
[2021-06-16 08:45] VITALS: BP 104/60; PULSE 65
[2021-06-16 09:09] VITALS: BP 100/72; PULSE 76; RESP 13; TEMP 36.7; O2SAT 97
--- NOTE | 2021-06-16 09:33 | PT.IIE ---
Current Diagnoses Spinal stenosis, lumbar region with neurogenic claudication (06/15/21) Surgery Performed Operation Date: 06/15/21 11:45 Actual Procedures p L4-5 TLIF(Not Applicable) - Clive Sanchez MD Medical History (Last Reviewed 05/31/21 @ 12:52 by Elizabeth Lange MD) Ascending aorta enlargement BPH (benign prostatic hyperplasia) CAD (coronary artery disease) Degenerative disc disease Degenerative joint disease of knee Hearing loss Heart attack High cholesterol History of colon polyps Kidney stones Non-STEMI (non-ST elevated myocardial infarction) (07/28/19) PEG (obstructive sleep apnea) Osteoarthritis Pre-diabetes RBBB (right bundle branch block) Ribs, multiple fractures (~2005) Seasonal allergies Physical Therapy Inpatient Evaluation/Re-Eval M1 PT/OT-IP Prior Functional Status Start: 06/16/21 08:13 Freq: Status: Active Protocol: Document 06/16/21 09:21 MB (Rec: 06/16/21 09:33 MB [id number]) Medical Review Prior Functional Status Medical History Reviewed Yes Diet/Fluid Consistency Regular Communication WNLs Mobility and Gait I Activities of Daily Living and IADL's I Prior Functional Level (Other details) I Social History Household Members spouse Living Arrangements House Number of Floors (Floors) One Floor Number of Stairs To Enter/Railing? 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 Additional Social History Comment Pt recently had appendectomy and has not been working since then M2 PT-IP Current Condition Start: 06/16/21 08:13 Freq: Status: Active Protocol: Document 06/16/21 09:21 MB (Rec: 06/16/21 09:33 MB [id number]) Physical Therapy Current Condition Current Condition Evaluation Date 06/16/21 Treatment Diagnosis Lumbar fusion Onset Date 06/15/2021 M3 PT-IP Subjective Start: 06/16/21 08:13 Freq: Status: Active Protocol: Document 06/16/21 09:21 MB (Rec: 06/16/21 09:33 MB [id number]) Subjective Physical Therapy Visit Type Type Initial Evaluation Visit Start Time 08:43 Visit Stop Time 09:19 Total Visit Minutes 36 Number of MANAGER CARGO Visits 0 Physical Therapy Visit Comments Patient Comments Pt feels ready to go home. Patient Goals To go home. Therapy Pain Assessment Pain When Pain Assessed At Rest Pain Present Pain Present Pain Reported Location Lower Back Intensity 6 Scale Used Numeric (0 - 10) Description Burning Pain Behaviors Guarding Pain Management Techniques Modification of Treatment,Re- positioning,Timing of Activity with Medications M4 PT-IP Mobility and Gait Start: 06/16/21 08:13 Freq: Status: Active Protocol: Document 06/16/21 09:21 MB (Rec: 06/16/21 09:33 MB [id number]) PT-Bed Mobility Assessment Rolling Type of Rolling Log Rolling,Roll to Right Level of Assist Independent Supine to Sit Supine to Sit Independent Scooting Scooting to Edge of Bed Independent PT-Transfer Assessment Sit to and From Stand Sit to and from Stand Independent,Use of Upper Extremities Equipment Transfer Assistive Device Gait Belt Orthotic/Prosthetic Devices or Brace: No Transfers Transfer Destination Chair Transfer Technique Stand Step Pivot Transfer Ability Level of Assist Independent,Use of Upper Extremities Comments Mobility Comments PT does cue pt in back precautions and log roll technique before mobility and encourages pt to push up with his hands to stand and not for the walker and then he is I to do so. Gait Assessment Gait Gait Assistance Required: Independent,Standby Assistance Distance (Feet) 150 Able to Maintain Weight Bearing Status Yes During Gait Assistive Devices Assistive Device Gait Belt,Front Wheeled Walker Orthotic/Prosthetic Devices or Brace: No Gait Deviations General Gait Pattern Antalgic Factors Limiting Gait Function Factors Limiting Gait Function Pain Comments Gait Comments Pt initally walks with increased WB through his arms on the walker with stiffness in shoulders and upper back and he requires cues to relax posture and just to scoot walker ahead of him for steadying assist. He performs 3 laps of gait in the hallway without imbalance or light- headedness. PT ed pt and nsg in benefits of him walking 2-3 laps every hour with nsg clearance. Ed pt in glute squeezes, LAQ and AP in sitting to help unweight spine and sit to stand x1 every half hour to help unweight spine, ed in use of incentive spirometer. Stair Climbing Assessment Comments Stair Climbing Comments No steps at home PT-Balance Assessment Sitting Balance and Reactions Static Sitting Balance Ability Good Dynamic Sitting Balance Ability Good Standing Balance and Reactions Static Standing Balance Ability Good Dynamic Standing Balance Ability Good M5 PT-IP Objective Assessments Start: 06/16/21 08:13 Freq: Status: Active Protocol: Document 06/16/21 09:21 MB (Rec: 06/16/21 09:33 [id number]) Orientation Orientation/Cognition Level of Alertness Alert Orientation Name,Age,Birthday,Month,Date, Year,Day of Week,Place, Situation Language Function Ability No Deficits Noted Safety Awareness Understands Safety Issues Memory Description No Deficits Noted Gross Range of Motion Upper Extremity ROM Assessment Within Functional Limits Lower Extremity ROM Assessment Within Functional Limits Strength Upper Extremity Strength Assessment Within Functional Limits Sensation Assessment Sensation Gross Sensation WNL Muscle Tone Muscle Tone WNL Yes M6 PT-IP Treatment Start: 06/16/21 08:13 Freq: Status: Active Protocol: Document 06/16/21 09:21 MB (Rec: 06/16/21 09:33 [id number]) Physical Therapy Treatment Exercises Exercises Ankle Pumps,Gluteal Sets, Seated Knee Flexion/Extension Education Education Provided Precautions,Post-Op Packet, Safety Other Treatments Other Treatment Performed See gait assessment comments for further education/training . Pt with hiccups upon arrival and did ed pt in diaphragm breathing and PT provides manual assist at diaphragm in standing and hiccups resolve in two breaths. M7 PT-IP Assessment and Plan Start: 06/16/21 08:13 Freq: Status: Active Protocol: Document 06/16/21 09:21 MB (Rec: 06/16/21 09:33 [id number]) PT Summary Assessment and Plan Potential Rehabilitation Potential Excellent Status of Condition at Evaluation Stable Summary Impairments Pain Progress Towards Goals Safe For Discharge Assessment Summary Pt is a 65 y/o male presenting with pain around his belt area and into left glute with mobility today. He does well with bed mobility, log roll technique and gait with walker post-op L4-5 fusion yesterday . He is not orthostatic or dizzy with mobility and his BP is borderline low. Orthostatic assessment in right UE: hook lying 102/63, 75; standing 99/52; standing 1 ' 108/78, 79. He states that his BP typically runs as such. Nsg held BP meds this morning . PT encourages pt and nsg to allow pt to be up walking in hallways with the walker. He does not need further IPPT. He would do well with starting OPPT soon. Frequency of Treatment Frequency Of Treatment Discharge Precautions Lumbar Precautions Log Roll,No Twisting,Limit Bending,Lifting Restriction of 10 lbs,Gait Belt above Incisional Area Weight Bearing Status Weight Bearing Status Weight Bear as Tolerated Recommendations To Nursing Amount of Assist Needed Standby Assistance Discharge Recommendations PT Discharge Recommendations Home,Home with Assistance, Outpatient PT Transportation Needs at Discharge Private Vehicle
--- NOTE | 2021-06-16 10:32 | PM.DS.1 ---
History of Present Illness History of Present Illness Date Patient Seen: 06/16/21 Time Patient Seen: 10:33 Chief complaint: Translaminar Interbody Fusion/Laminotomy *OPB* Narrative: Postop day 1 L4-[address] FERNANDEZ doing well today. Pain controlled. No fevers chills nausea or vomiting. Was up with Physical therapy and cleared for home discharge Discharge Providers Provider Date of admission: 06/15 Discharge Date: 06/16/21 Primary care physician: Torin Newberry MD Consults: 06/15/21 15:29 Consult to Occupational Therapy Evaluate & Treat Comment: Physician Instructions: Evaluate and treat Consult to Physical Therapy Evaluate & Treat Comment: Physician Instructions: Evaluate and Treat Discharge provider: Eli Cobb MD Summary Hospital Course Discharge Diagnosis: Same as admission--1. L4-5 spinal stenosis with neurogenic claudication 2. L4-5 spondylosis with radiculopathy Hospital Course: Patient was admitted to the postoperative unit and floor after surgery. He was maintained with IV and oral pain medication. By postoperative day 1 he was managed well on oral pain medication. He was up and tolerating an oral diet. He worked with Physical therapy and was cleared for discharge home. Status at Discharge Cognitive/behavioral status at discharge: oriented Functional status at discharge: uses cane/walker Overall status at discharge: patient is progressing back to baseline Time Spent with Patient Time spent: Less than 30 minutes Exam Vital Signs (past 8 hours): - 06/16/21 06:35 06/16/21 08:45 06/16/21 09:09 Temperature 97.5 F L 98.0 F Pulse Rate 67 65 76 Respiratory Rate 16 13 Blood Pressure 97/60 104/60 100/72 Pulse Oximetry 97 97 Oxygen Delivery Method Nasal Cannula Oxygen Flow Rate 0 Narrative Exam Narrative: Alert oriented male no acute distress. Sitting in bedside chair. No complaints. Breathing normal on room air. Heart regular rate and rhythm. Back dressing is evaluated. Scant amount of drainage on the dressing. No erythema. Demonstrates dorsiflexion plantar flexion bilateral lower extremities. Bilateral calf soft. [facility] [place] Medical History Ascending aorta enlargement BPH (benign prostatic hyperplasia) CAD (coronary artery disease) Degenerative disc disease Degenerative joint disease of knee Hearing loss Heart attack High cholesterol History of colon polyps Kidney stones Non-STEMI (non-ST elevated myocardial infarction) (07/28/19) PEG (obstructive sleep apnea) Osteoarthritis Pre-diabetes RBBB (right bundle branch block) Ribs, multiple fractures (~2005) Seasonal allergies Surgical History (Updated 06/02/21 @ 09:37 by Nadia Maki RN) H/O vasectomy (~1995) History of adenoidectomy History of laparoscopic appendectomy (05/31/21) History of shoulder surgery History of total left knee replacement (11/22/20) Hx of arthroscopic knee surgery Hx of fusion of cervical spine (~1995) Hx of heart artery stent (07/28/19) Status post laminectomy (~2011) Family History Father Stroke Mother Hypertension Brother Heart disease Stroke Social History household members: spouse Smoking Status: Never smoker alcohol intake: current Discharge Assessment & Plan Assessment and Plan Assessment: Progressing appropriately postop day 1 status post L4-5 TLIF Plan of Treatment: Discharge home. Pain control. No lifting bending or twisting Weightbear as tolerated Follow-up in 10-14 days in Orthopedic Clinic Discharge Plan Discharge Plan Patient Disposition: Home Discharge orders & Medications Discharge Orders: Discharge (Order); Ordered 06/16/21 Ordered By: Eli Cobb Prescriptions: New docusate sodium 100 mg Capsule 100 mg PO BID Qty: 30 0RF oxycodone 5 mg Tablet 5 - 10 mg PO Q4HR PRN (Reason: Pain (Scale Score 7-10)) Qty: 50 0RF Rx Instructions: postop exempt hydroxyzine pamoate 25 mg Capsule 25 mg PO Q4HR PRN (Reason: Nausea And Vomiting) Qty: 15 0RF Continued ezetimibe 10 mg Tablet 10 mg PO DAILY 0RF rosuvastatin 40 mg Tablet 40 mg PO DAILY 0RF Label Comments: Takes at bedtime terbinafine HCl 250 mg Tablet 250 mg PO DAILY 0RF duloxetine 30 mg Capsule, Delayed Rel Sprinkle 30 mg PO DAILY 0RF aspirin 81 mg Capsule 81 mg PO DAILY 0RF acetaminophen [Tylenol] 325 mg capsule 650 mg PO Q6H PRN (Reason: Pain) 0RF losartan 25 mg tablet 12.5 mg PO DAILY 0RF Rx Instructions: Takes at bedtime metoprolol succinate [Toprol XL] 25 mg tablet extended release 24 hr 25 mg PO DAILY 0RF nitroglycerin 0.4 mg tablet, sublingual 0.4 mg SL Q5M PRN (Reason: Chest Pain) 0RF Label Comments: patient has it,but has never used it trazodone 100 mg tablet 100 mg PO DAILY 0RF valacyclovir 500 mg tablet 500 mg PO DAILY 0RF Rx Instructions: Takes at bedtime Discontinued tramadol 50 mg tablet 50 mg PO BID PRN (Reason: pain) Qty: 60 0RF hydromorphone 4 mg Tablet 4 mg PO Q6HR PRN (Reason: Pain, Severe (7-10)) Qty: 30 0RF Follow up/Referrals: Torin Newberry MD [Primary Care Provider] - Diet/Activity/Treatments Diet: Diet as Tolerated Activity: Weightbear as tolerated. No bending lifting or twisting Other treatments: Follow-up with Orthopedic surgery as scheduled in 10-14 days Skin/Wound/Dressing Care Report to your healthcare provider any signs of infection, such as:: chills, fever, night sweats, increased pain, unusual drainage and unusual redness Dressing: Keep dressing clean dry intact. May change to clean dressing if saturated Visit Report/Discharge Packet Instructions: DI for Transforaminal Lumbar Interbody Fusion Stand Alone Forms: Surgery Discharge Discharge Data Primary Care Provider: Torin Newberry Attending Provider: Clive Fernandez VTE Deep Vein Thrombosis/Pulmonary Embolism Present on Admission: No
[2021-06-16] MEDS: INFLUENZA VACCINE QIV 0.5 ML SYRINGE IM (12:55)
--- NOTE | 2021-06-16 13:34 | PC.NURSE ---
Discharge note: Patient discharged home per MD order and cleared by PT. Discussed importance of F/U with Ortho in 10-14 days. Discussed importance of mobility precautions, dressing care, home safety, and new medications. Home with spouse via private vehicle.
== END 2021-06-16 13:30 | disposition home or self-care (01) ==
LOC: OR 09:48 → AC 09:49
PROVIDERS: PCP Family Medicine; Referring Provider Orthopaedic Surgery Orthopaedic Surgery of the Spine; Visit Provider Orthopaedic Surgery Orthopaedic Surgery of the Spine
PROC: (CPT 22633; principal; 2021-06-15 11:45)
DX: M48.062 Spinal stenosis, lumbar region with neurogenic claudication (principal); I25.10 Atherosclerotic heart disease of native coronary artery without angina pectoris; G47.33 Obstructive sleep apnea (adult) (pediatric); I25.2 Old myocardial infarction; Z23 Encounter for immunization
CPT/HCPCS: 22633; 63047; 22853; 22840; 20939; 72100; 76000; 82962; 90471; 90656; 97110; 97116; 97161; C1776; C9290; J0171; J0690; J1100; J1170; J2250; J2405; J2704; J3010; J3410; Q2038

== ENCOUNTER 2022-07-06 13:16 | Emergency (ER) | payer MEDICARE, OTHER, SELFPAY ==
[2021-06-15 15:57] VITALS: BMI 33.0
[2022-07-06 13:36] VITALS: BP 117/70; PULSE 78; RESP 15; TEMP 36.7; O2SAT 95; BMI 31.8
--- NOTE | 2022-07-06 13:39 | DI.RAD.S_ITS ---
PROCEDURE: XR CHEST 2V INDICATIONS: cough and congestion,concerned for pneumonia TECHNIQUE: 2 views of the chest were acquired. COMPARISON: [facility], CR, XR CHEST 1V, 05/31/2021, 9:54. FINDINGS: Surgical changes and devices: None. Lungs and pleura: Trace airspace opacities are present at the left lung base there may be a small right pleural effusion or pleural scar present. Mediastinum: Mediastinal contours are normal. Heart size is normal. Bones and chest wall: No suspicious bony abnormalities. Soft tissues appear unremarkable. IMPRESSION: Left basilar pulmonary radiopacities suspicious for aspiration/infection. Questionable right pleural effusion versus pleural scarring. Short interval followup is recommended with resolution of the patient's symptoms to ensure there is no underlying pulmonary pathology. Dictated by: Delfina Banerjee M.D. on 07/06/2022 at 14:41 Approved by: Delfina Banerjee M.D. on 07/06/2022 at 14:43
[2022-07-06 14:45] VITALS: BP 108/69; PULSE 65; RESP 18; O2SAT 97
[2022-07-06 15:29] LABS: Add Manual Diff / Slide Review NO; Basophils Absolute Auto 0 /uL (0-100); Basophils Percent Auto 0.8 % (0-2); Eosinophils Absolute Auto 100 /uL (0-450); Eosinophils Percent Auto 3.6 % (2-4); Hemoglobin 14.9 g/dL (13.5-17.5); Lymphocytes Absolute Auto 1100 /uL (1100-4500); Lymphocytes Percent Auto 26.1 % (25-40); Mean Corpuscular HGB Conc 33.9 % (30-36); Mean Corpuscular Hemoglobin 31.8 PG (26-34); Mean Corpuscular Volume 93.9 fL (80-100); Monocytes Absolute Auto 1100 /uL (0-900); Monocytes Percent Auto 26.8 % (3-14); Neutrophils Absolute Auto 1800 /uL (1500-7000); Neutrophils Percent Auto 42.7 % (50-75); Platelet Count 143 X10^3/uL (150-400); Red Blood Cell Count 4.68 X10^6/uL (4.5-5.9); Red Cell Distribution Width 13.2 % (11.6-14.8); White Blood Cell Count 4.2 X10^3/uL (4.5-11.0)
[2022-07-06] MEDS: cefTRIAXone 2,000 MG in SODIUM CHLORIDE 0.9% 100 ML 200 MG IV (15:34)
[2022-07-06] MEDS: AZITHROMYCIN 250 MG TABLET 500 MG PO (15:35)
[2022-07-06 15:41] LABS: HEMOLYSIS < 15 (0-50)
[2022-07-06 15:49] LABS: Alanine Aminotransferase 51 IU/L (<50); Albumin 3.9 g/dL (3.5-5.0); Albumin Globulin Ratio 1.3 (1.0-2.8); Alkaline Phosphatase 68 U/L (38-126); Aspartate Aminotransferase 50 IU/L (17-59); BUN Creatinine Ratio 16.5 (6-22); Bilirubin Total 0.5 mg/dL (0.2-1.3); Blood Urea Nitrogen 14 mg/dL (9-20); Calcium 8.4 mg/dL (8.4-10.2); Carbon Dioxide 25 mmol/L (22-32); Chloride 106 mmol/L (98-107); Estimated Glomerular Filt Rate > 60 mL/min (>60); Glucose 93 mg/dL (80-110); Potassium 3.7 mmol/L (3.4-5.1); Sodium 136 mmol/L (137-145); Total Protein 6.9 g/dL (6.3-8.2)
[2022-07-06 15:59] LABS: Troponin I < 0.012 ng/mL (0.01-0.034)
[2022-07-06 16:00] LABS: Influenza A - CEPHEID Flu A NEGATIVE (NEGATIVE); Influenza B - CEPHEID Flu B NEGATIVE (NEGATIVE); Respiratory Syncytial Virus Negative (Negative)
[2022-07-06 16:12] LABS: COVID-19 CEPHEID 4-PLEX PCR Negative (Negative)
--- NOTE | 2022-07-06 16:15 | ED.URI ---
HPI - URI/Sore Throat General Chief Complaint: Upper Respiratory Symptoms Stated Complaint: thinks he might have pneumonia t-7 Time Seen by Provider: 07/06/22 14:41 Source: patient Mode of arrival: Ambulatory History of Present Illness HPI Narrative: 66-year-old male presenting with cough, congestion, shortness of breath, generalized malaise, decreased oral intake in the setting of recent sick contacts with similar symptoms. Symptoms started several days prior to presentation, gradually worsening, no ko chest pain, patient reports coughing fits worsen at night. Patient cough is nonproductive. No measured fevers. Related Data Home Medications Medication Instructions Recorded Confirmed acetaminophen 325 mg capsule 650 mg PO Q6H PRN Pain 09/15/19 06/15/21 (Tylenol) losartan 25 mg tablet 12.5 mg PO DAILY 09/15/19 06/15/21 metoprolol succinate 25 mg 25 mg PO DAILY 09/15/19 06/15/21 tablet,extended release 24 hr (Toprol XL) nitroglycerin 0.4 mg sublingual 0.4 mg sublingual Q5M PRN Chest 09/15/19 06/15/21 tablet Pain trazodone 100 mg tablet 100 mg PO DAILY For sleep 09/15/19 06/15/21 valacyclovir 500 mg tablet 500 mg PO DAILY 09/15/19 06/15/21 ezetimibe 10 mg tablet 10 mg PO DAILY 11/15/20 06/15/21 rosuvastatin 40 mg tablet 40 mg PO DAILY 11/15/20 06/15/21 aspirin 81 mg capsule 81 mg PO DAILY 05/31/21 06/15/21 duloxetine 30 mg capsule,delayed 30 mg PO DAILY 05/31/21 06/15/21 release sprinkle terbinafine HCl 250 mg tablet 250 mg PO DAILY 05/31/21 06/15/21 Previous Rx's Medication Instructions Recorded docusate sodium 100 mg capsule 100 mg PO BID #30 caps 06/16/21 hydroxyzine pamoate 25 mg capsule 25 mg PO Q4HR PRN Nausea And 06/16/21 Vomiting #15 caps oxycodone 5 mg tablet 5 - 10 mg PO Q4HR PRN Pain (Scale 06/16/21 Score 7-10) #50 tabs sodium,potassium,mag sulfates 17.5 See Rx Instructions PO .COMPLEX 07/14/21 gram-3.13 gram-1.6 gram oral soln #354 mL (Suprep Bowel Prep Kit) azithromycin 250 mg tablet See Rx Instructions PO .COMPLEX #6 07/06/22 tabs cefdinir 300 mg capsule 300 mg PO BID #14 caps 07/06/22 Allergies Allergy/AdvReac Type Severity Reaction Status Date / Time No Known Drug Allergies Allergy Verified 07/06/22 13:36 Review of Systems Review of Systems Narrative: Constitutional, Eyes, ENT, Pulmonary, Cardiovascular, Gastrointestinal, Renal, Endocrine, Genitourinary, Musculoskeletal, Neurologic, Skin, and Psychiatric systems were reviewed and negative unless indicated in the HPI above. Patient History Medical History (Updated 07/06/22 @ 16:30 by Dre Arciniega MD) Ascending aorta enlargement BPH (benign prostatic hyperplasia) CAD (coronary artery disease) Degenerative disc disease Degenerative joint disease of knee Hearing loss Heart attack High cholesterol History of colon polyps Kidney stones Non-STEMI (non-ST elevated myocardial infarction) (07/28/19) PEG (obstructive sleep apnea) Osteoarthritis Pre-diabetes RBBB (right bundle branch block) Ribs, multiple fractures (~2005) Seasonal allergies Surgical History (Updated 06/02/21 @ 09:37 by Nadia Maki RN) H/O vasectomy (~1995) History of adenoidectomy History of laparoscopic appendectomy (05/31/21) History of shoulder surgery History of total left knee replacement (11/22/20) Hx of arthroscopic knee surgery Hx of fusion of cervical spine (~1995) Hx of heart artery stent (07/28/19) Status post laminectomy (~2011) Family History Father Stroke Mother Hypertension Brother Heart disease Stroke Social History household members: spouse Smoking Status: Never smoker alcohol intake: current Smoking Status: Never smoker alcohol intake frequency: holidays/special occasions only Substance Use Type: does not use Exam Narrative Exam Narrative: Vitals reviewed. Nursing note reviewed Constitutional: interactive HENT: Moist mucous membranes EYES: No scleral icterus NECK: no masses CV: Well perfused peripherally, no cyanosis present PULM: Unlabored respirations, symmetric chest rise ABD: Non-distended MS: No gross deformities, no asymmetric edema noted SKIN: Warm and dry. PSYCH: Appropriate affect NEURO: Follows simple commands, moves extremities, interactive with exam Initial Vital Signs Initial Vital Signs: Vital Signs Temperature 98.0 F 07/06/22 13:36 Pulse Rate 78 07/06/22 13:36 Respiratory Rate 15 07/06/22 13:36 Blood Pressure 117/70 07/06/22 13:36 Pulse Oximetry 95 07/06/22 13:36 Oxygen Delivery Method 07/06/22 13:36 Course Orders Ordered: ED Orders 07/06/22 13:38 Covid-19 + FLU A/B + RSV - PCR Stat 07/06/22 13:39 XR chest 2V Stat 07/06/22 15:04 EKG-12 Lead Stat 07/06/22 15:17 CBC Auto Diff [Complete Blood Count AUTO DIFF] Stat CMP [Comprehensive Metabolic Panel] Stat Trop I [Troponin I] Stat Discontinued Medications Azithromycin (Azithromycin 250 Mg Tablet) 500 mg PO NOW ONE Stop: 07/06/22 14:55 Last Admin: 07/06/22 15:35 Dose: 500 mg Documented By: ALEX Ceftriaxone Sodium 2,000 mg/ (Sodium Chloride) 100 mls @ 200 mls/hr IV NOW ONE Stop: 07/06/22 14:55 Last Infusion: 07/06/22 16:12 Dose: 0 mls/hr Documented By: Admin: 07/06/22 15:34 Dose: 200 mls/hr Documented By: ALEX Vital Signs Vital signs: Vital Signs - 8 hr 07/06/22 13:36 07/06/22 14:45 Temperature 98.0 F Pulse Rate 78 65 Respiratory Rate 15 18 Blood Pressure 117/70 108/69 Pulse Oximetry 95 97 Oxygen Delivery Method Room Air Room Air MDM - URI/Sore Throat Lab Data Result diagrams: 07/06/22 15:17 07/06/22 15:17 Labs: Lab Results 07/06/22 07/06/22 07/06/22 Range/Units 13:38 15:17 15:17 WBC 4.2 L (4.5-11.0) X10^3/uL RBC 4.68 (4.5-5.9) X10^6/uL Hgb 14.9 (13.5-17.5) g/dL Hct 44.0 (41-53) % MCV 93.9 (80-100) fL MCH 31.8 (26-34) PG MCHC 33.9 (30-36) % RDW 13.2 (11.6-14.8) % Plt Count 143 L (150-400) X10^3/uL Neut % (Auto) 42.7 L (50-75) % Lymph % (Auto) 26.1 (25-40) % [place] % (Auto) 26.8 H (3-14) % Eos % (Auto) 3.6 (2-4) % Baso % (Auto) 0.8 (0-2) % Neut # (Auto) 1800 (2364-0152) /uL Lymph # (Auto) 1100 (2647-3508) /uL [place] # (Auto) 1100 H (0-900) /uL Eos # (Auto) 100 (0-450) /uL Baso # (Auto) 0 (0-100) /uL Sodium 136 L (137-145) mmol/L Potassium 3.7 (3.4-5.1) mmol/L Chloride 106 (98-107) mmol/L Carbon Dioxide 25 (22-32) mmol/L BUN 14 (9-20) mg/dL Creatinine 0.85 (0.66-1.25) mg/dL Estimated GFR > 60 (>60) mL/min BUN/Creatinine Ratio 16.5 (6-22) Glucose 93 (80-110) mg/dL Calcium 8.4 (8.4-10.2) mg/dL Total Bilirubin 0.5 (0.2-1.3) mg/dL AST 50 (17-59) IU/L ALT 51 H (<50) IU/L Alkaline Phosphatase 68 (38-126) U/L Troponin I < 0.012 (0.01-0.034) ng/mL Total Protein 6.9 (6.3-8.2) g/dL Albumin 3.9 (3.5-5.0) g/dL Globulin 3.0 (1.7-4.1) g/dL Albumin/Globulin Ratio 1.3 (1.0-2.8) SARS-CoV-2 (PCR) Negative (Negative) Influenza A (RT-PCR) Flu a negative (NEGATIVE) Influenza B (RT-PCR) Flu b negative (NEGATIVE) RSV (PCR) Negative (Negative) MDM Narrative Medical decision making narrative: 66-year-old male presenting with cough, congestion, concern for pneumonia. Vital signs notable for no significant abnormalities. Exam notable for alert and interactive 66-year-old male without significantly increased work of breathing, no obvious rhonchi or wheezes, benign abdomen. Initial concern for infectious etiology including viral syndrome, focal bacterial infection, occult ACS, pulmonary embolism, sepsis. EKG without evidence of acute ischemia. CBC without leukocytosis or left shift, CMP notable for normal range creatinine, no significant electrolyte derangements. Patient was administered IV antibiotics in the emergency department. Chest x-ray with evidence of developing pneumonia, discussed plan for trial of outpatient antibiotics and close outpatient follow-up. Patient is comfortable this plan and subsequently discharged with return precautions. Discharge Plan Departure Patient Disposition: Home Clinical Impression: Pneumonia Activity Restrictions/Additional Instructions: *You have been diagnosed with pneumonia. *What to do: *Please take the antibiotics as prescribed. If her symptoms do not improve in 2-3 days, please return to the emergency department. You should follow-up with your primary care physician in 2-3 days. *Please follow up with your primary care provider in 2-3 days, call for an appointment. Let them know you were seen in the Emergency Department and that we ask that you be seen in follow up. We will electronically transmit a record of today's note if your PCP is in our system *Return to Emergency Department if you should have any new, worsening or concerning symptoms, such as [fever greater than 101 F, shaking chills, worsening pain, persistent vomiting or other bothersome symptoms] Prescriptions: New cefdinir 300 mg capsule 300 mg PO BID Qty: 14 0RF azithromycin 250 mg tablet See Rx Instructions .ROUTE .COMPLEX Qty: 6 0RF Rx Instructions: For 250 mg dose pack: take 500 mg today (day 1), then 250 mg for 4 days (days 2-5) No Action Suprep Bowel Prep Kit 17.5-3.13-1.6 gram recon soln See Rx Instructions PO .COMPLEX Qty: 354 0RF Rx Instructions: DILUTE; drink full amount early evening before AND next morning at least 2 hr before procedure; follow w 32 oz. water PO ezetimibe 10 mg Tablet 10 mg PO DAILY rosuvastatin 40 mg Tablet 40 mg PO DAILY Label Comments: Takes at bedtime docusate sodium 100 mg Capsule 100 mg PO BID Qty: 30 0RF oxycodone 5 mg Tablet 5 - 10 mg PO Q4HR PRN (Reason: Pain (Scale Score 7-10)) Qty: 50 0RF Rx Instructions: postop exempt hydroxyzine pamoate 25 mg Capsule 25 mg PO Q4HR PRN (Reason: Nausea And Vomiting) Qty: 15 0RF terbinafine HCl 250 mg Tablet 250 mg PO DAILY duloxetine 30 mg Capsule, Delayed Rel Sprinkle 30 mg PO DAILY aspirin 81 mg Capsule 81 mg PO DAILY acetaminophen [Tylenol] 325 mg capsule 650 mg PO Q6H PRN (Reason: Pain) losartan 25 mg tablet 12.5 mg PO DAILY Rx Instructions: Takes at bedtime metoprolol succinate [Toprol XL] 25 mg tablet extended release 24 hr 25 mg PO DAILY nitroglycerin 0.4 mg tablet, sublingual 0.4 mg SL Q5M PRN (Reason: Chest Pain) Label Comments: patient has it,but has never used it trazodone 100 mg tablet 100 mg PO DAILY valacyclovir 500 mg tablet 500 mg PO DAILY Rx Instructions: Takes at bedtime Referrals: Yazan Aguirre MD [Primary Care Provider] -
[2022-07-06 16:45] VITALS: BP 95/64; BP 97/63; PULSE 67; PULSE 70
[2022-07-06 16:46] VITALS: BP 97/63; PULSE 67; O2SAT 96
== END 2022-07-06 17:01 | disposition home or self-care (01) ==
PROVIDERS: Emergency Medicine; Emergency Provider Emergency Medicine; PCP Internal Medicine
DX: J18.9 Pneumonia, unspecified organism (principal)
CPT/HCPCS: 0241U; 36415; 71046; 80053; 84484; 85025; 93005; 93010; 96374; 99284; J0696

== ENCOUNTER → 2022-08-08 11:37 | Outpatient (CLI) | payer MEDICARE, OTHER, SELFPAY ==
[2021-06-15 15:57] VITALS: BMI 33.0
--- NOTE | 2022-08-08 | DI.RAD.S_ITS ---
PROCEDURE: XR CHEST 2V INDICATIONS: Pneumonia, unspecified organism TECHNIQUE: 2 views of the chest were acquired. COMPARISON: [facility], CR, XR CHEST 2V, 07/06/2022, 13:44. [facility], CR, XR CHEST 1V, 05/31/2021, 9:54. FINDINGS: Surgical changes and devices: Right clavicle and chest wall hardware again seen. Lungs and pleura: No dense consolidation or pleural effusion. Possible nodule in the right upper lung, possibly calcified stable since 2020. Mediastinum: Heart size is within normal limits. Bones and chest wall: As above IMPRESSION: No acute radiographic abnormality. Approved by: Juice Lee M.D. on 08/08/2022 at 15:10
== END ==
PROVIDERS: PCP Internal Medicine; Referring Provider Internal Medicine; Visit Provider Internal Medicine
DX: J18.9 Pneumonia, unspecified organism (principal)
CPT/HCPCS: 71046

== ENCOUNTER 2022-08-30 10:41 | Emergency (ER) | payer OTHER, SELFPAY ==
[2021-06-15 15:57] VITALS: BMI 33.0
[2022-08-30 10:44] VITALS: BP 127/69; PULSE 67; RESP 15; TEMP 36.3; O2SAT 97; BMI 31.8
--- NOTE | 2022-08-30 10:49 | DI.RAD.S_ITS ---
PROCEDURE: XR RIBS LT MIN 3V W CXR1V INDICATIONS: rib injury TECHNIQUE: 2 views of the left ribs were acquired, along with a single view chest. COMPARISON: [facility], CR, XR CHEST 2V, 08/08/2022, 13:17. FINDINGS: Surgical changes and devices: Right clavicle plate and screw and right chest wall fixation hardware redemonstrated. Bones and chest wall: No fractures or dislocations. No suspicious bony lesions. Overlying soft tissues appear unremarkable. Lungs and pleura: No pleural effusions or pneumothorax. No acute appearing focal airspace opacity. Redemonstrated nodular opacity projecting over the right upper lung, possible granuloma or pulmonary nodule, not significantly changed. Mediastinum: Mediastinal contours appear normal. Heart size is normal. IMPRESSION: No acute displaced rib fracture identified. No pneumothorax. Dictated by: Mick Carrillo M.D. on 08/30/2022 at 11:10 Approved by: Mick Carrillo M.D. on 08/30/2022 at 11:15
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
== END 2022-08-30 12:35 | disposition home or self-care (01) ==
PROVIDERS: Emergency Provider Student in an Organized Health Care Education/Training Program; PCP Internal Medicine
DX: S20.212A Contusion of left front wall of thorax, initial encounter (principal); S29.9XXA Unspecified injury of thorax, initial encounter; W22.8XXA Striking against or struck by other objects, initial encounter; Y99.0 Civilian activity done for income or pay
CPT/HCPCS: 71101; 99283

== ENCOUNTER 2022-08-31 20:48 | Emergency (ER) | payer OTHER, MEDICARE, SELFPAY ==
[2021-06-15 15:57] VITALS: BMI 33.0
[2022-08-31 20:58] VITALS: BP 132/65; PULSE 75; RESP 18; TEMP 36.7; O2SAT 95; BMI 31.8
--- NOTE | 2022-08-31 21:13 | ED.BACK ---
HPI - Back Pain/Injury General Chief Complaint: Abdominal Pain Stated Complaint: Thinks kidney stone or inf. Time Seen by Provider: 08/31/22 21:00 Source: patient History of Present Illness HPI Narrative: Patient is a 66-year-old male with history coronary artery disease with 2 stents, chronic back pain with fusion of L4-L5 presents today with worsening left-sided back pain. It is definitely worse with position he says whenever he moves it can hurt it. He does not have really radiation down his leg although he is feeling like his skin in his left leg all the way down to his ankle is really sensitive. He is no radiation to his abdomen or his groin. He has pain in his left lower lumbar region kind of radiating to the side. He denies any fever chills or chest pain. No painful or frequent urination he is not noted any blood. Prior to arrival he took 1000 mg Tylenol and tramadol which he says normally helps just has not kicked in yet. He seen and evaluated yesterday after he he was hit on the left side of the ribs with a door. He said the wind blew and hit his ribs. He has not x-ray and discharge instructions however I do not yet see a note from provider. X-ray did not show any rib fracture suspected rib contusion. He denies any loss of urine or stool Related Data Home Medications Medication Instructions Recorded Confirmed acetaminophen 325 mg capsule 650 mg PO Q6H PRN Pain 09/15/19 06/15/21 (Tylenol) losartan 25 mg tablet 12.5 mg PO DAILY 09/15/19 06/15/21 metoprolol succinate 25 mg 25 mg PO DAILY 09/15/19 06/15/21 tablet,extended release 24 hr (Toprol XL) nitroglycerin 0.4 mg sublingual 0.4 mg sublingual Q5M PRN Chest 09/15/19 06/15/21 tablet Pain trazodone 100 mg tablet 100 mg PO DAILY For sleep 09/15/19 06/15/21 valacyclovir 500 mg tablet 500 mg PO DAILY 09/15/19 06/15/21 ezetimibe 10 mg tablet 10 mg PO DAILY 11/15/20 06/15/21 rosuvastatin 40 mg tablet 40 mg PO DAILY 11/15/20 06/15/21 aspirin 81 mg capsule 81 mg PO DAILY 05/31/21 06/15/21 duloxetine 30 mg capsule,delayed 30 mg PO DAILY 05/31/21 06/15/21 release sprinkle terbinafine HCl 250 mg tablet 250 mg PO DAILY 05/31/21 06/15/21 Previous Rx's Medication Instructions Recorded docusate sodium 100 mg capsule 100 mg PO BID #30 caps 06/16/21 hydroxyzine pamoate 25 mg capsule 25 mg PO Q4HR PRN Nausea And 06/16/21 Vomiting #15 caps oxycodone 5 mg tablet 5 - 10 mg PO Q4HR PRN Pain (Scale 06/16/21 Score 7-10) #50 tabs sodium,potassium,mag sulfates 17.5 See Rx Instructions PO .COMPLEX 07/14/21 gram-3.13 gram-1.6 gram oral soln #354 mL (Suprep Bowel Prep Kit) azithromycin 250 mg tablet See Rx Instructions PO .COMPLEX #6 07/06/22 tabs cefdinir 300 mg capsule 300 mg PO BID #14 caps 07/06/22 lidocaine 5 % topical patch 1 patch topical DAILY PRN pain 08/31/22 (scale score 4-6) #30 ea Allergies Allergy/AdvReac Type Severity Reaction Status Date / Time No Known Drug Allergies Allergy Verified 08/30/22 10:46 Review of Systems Review of Systems ROS Unobtainable: All systems reviewed & are unremarkable except as noted in HPI and below Patient History Medical History Ascending aorta enlargement BPH (benign prostatic hyperplasia) CAD (coronary artery disease) Degenerative disc disease Degenerative joint disease of knee Hearing loss Heart attack High cholesterol History of colon polyps Kidney stones Non-STEMI (non-ST elevated myocardial infarction) (07/28/19) PEG (obstructive sleep apnea) Osteoarthritis Pre-diabetes RBBB (right bundle branch block) Ribs, multiple fractures (~2005) Seasonal allergies Surgical History H/O vasectomy (~1995) History of adenoidectomy History of laparoscopic appendectomy (05/31/21) History of shoulder surgery History of total left knee replacement (11/22/20) Hx of arthroscopic knee surgery Hx of fusion of cervical spine (~1995) Hx of heart artery stent (07/28/19) Status post laminectomy (~2011) Family History Father Stroke Mother Hypertension Brother Heart disease Stroke Social History household members: spouse Smoking Status: Never smoker alcohol intake: current Smoking Status: Never smoker alcohol intake frequency: holidays/special occasions only Substance Use Type: does not use Exam Initial Vital Signs Initial Vital Signs: Vital Signs Temperature 98.1 F 08/31/22 20:58 Pulse Rate 75 08/31/22 20:58 Respiratory Rate 18 08/31/22 20:58 Blood Pressure 132/65 08/31/22 20:58 Pulse Oximetry 95 08/31/22 20:58 Oxygen Delivery Method 08/31/22 20:58 GENERAL: Alert pleasant 66-year-old male appears comfortable and in no acute distress. HEENT: Head atraumatic,EOMI, pupils reactive, face symmetric, moist mucous membranes CARDIOVASCULAR: Regular rate and rhythm without murmurs, rubs or gallops. RESPIRATORY: Breath sounds equal bilaterally, no wheezes rales or rhonchi. ABDOMEN: Soft, nontender. Normoactive bowel sounds all 4 quadrants. No guarding or rebound. BACK: No vertebral tendinitis no step-offs whole lower left lumbar pain not necessarily reproducible with touch : No CVA tenderness EXTREMITIES: Normal range of motion, no clubbing or edema. Neurovascularly intact NEUROLOGICAL: Alert and oriented x4.Normal gait and speech. Slightly more sensitive on the left side than the right side of his lower extremities SKIN: Warm, dry, no laceration, no petechiae, no rashes or lesions. Course Orders Ordered: Discontinued Medications Ketorolac Tromethamine (Ketorolac 30 Mg/Ml Vial) 30 mg IM NOW ONE Stop: 08/31/22 21:15 Last Admin: 08/31/22 21:19 Dose: 30 mg Documented By: AT Vital Signs Vital signs: Vital Signs - 8 hr 08/31/22 20:58 08/31/22 21:53 Temperature 98.1 F Pulse Rate 75 68 Respiratory Rate 18 Blood Pressure 132/65 105/70 Pulse Oximetry 95 95 Oxygen Delivery Method Room Air Room Air MDM - Back Pain/Injury Lab Data Labs: Urine Dip Bedside Urine Glucose Negative Bedside Urine Bilirubin - Negative Bedside Urine Ketone - Negative Urine Specific [place] 1.030 Bedside Urine Occult Blood - Negative Bedside Urine pH 6 Bedside Urine Protein - Negative Bedside Urine Urobilinogen - Negative Bedside Urine Nitrite - Negative Bedside Urine Leukocytes - Negative Esterase MDM Narrative Medical decision making narrative: 66-year-old male history of coronary artery disease chronic back pain presenting today with worsening left-sided back pain and some radiation to his leg. He had an injury a couple days ago and is now having worsening pain. He is worried about a kidney stone however he has no other symptoms including radiation to the right nausea vomiting or hematuria. Pain is also definitely reproducible with position. I suspect that this is more musculoskeletal and sciatica. He is given a dose of Toradol here in the ED she does seem to help. Apparently an L and I form and claim was started at his previous visit he is requesting 2nd work note until the end of next week. Discharge Plan Departure Patient Disposition: Home Clinical Impression: Acute back pain with sciatica Instructions: DI for Back Pain With Sciatica Activity Restrictions/Additional Instructions: *You have been diagnosed with back pain with sciatica *What to do: At this time her symptoms seem to be most related to an exacerbation of your back pain. Increase activity as tolerated try heating pad and stretches *Continue to take medications as directed Continue tramadol as directed Tylenol 1000 mg every 6 hours if needed Lidocaine patch for 12 hours at a time then remove or move to completely different place *Follow up with your primary care provider in 2-3 days or call [phone] *Return to ER if you should have loss of urine increasing leg weakness fever chest pain [or] any new, worsening or concerning symptoms Prescriptions: New lidocaine 5 % adhesive patch,medicated 1 patch topical DAILY PRN (Reason: pain (scale score 4-6)) Qty: 30 0RF Rx Instructions: leave on most painful area for up to 12 hrs then remove No Action Suprep Bowel Prep Kit 17.5-3.13-1.6 gram recon soln See Rx Instructions PO .COMPLEX Qty: 354 0RF Rx Instructions: DILUTE; drink full amount early evening before AND next morning at least 2 hr before procedure; follow w 32 oz. water PO ezetimibe 10 mg Tablet 10 mg PO DAILY rosuvastatin 40 mg Tablet 40 mg PO DAILY Label Comments: Takes at bedtime docusate sodium 100 mg Capsule 100 mg PO BID Qty: 30 0RF oxycodone 5 mg Tablet 5 - 10 mg PO Q4HR PRN (Reason: Pain (Scale Score 7-10)) Qty: 50 0RF Rx Instructions: postop exempt hydroxyzine pamoate 25 mg Capsule 25 mg PO Q4HR PRN (Reason: Nausea And Vomiting) Qty: 15 0RF cefdinir 300 mg capsule 300 mg PO BID Qty: 14 0RF azithromycin 250 mg tablet See Rx Instructions .ROUTE .COMPLEX Qty: 6 0RF Rx Instructions: For 250 mg dose pack: take 500 mg today (day 1), then 250 mg for 4 days (days 2-5) terbinafine HCl 250 mg Tablet 250 mg PO DAILY duloxetine 30 mg Capsule, Delayed Rel Sprinkle 30 mg PO DAILY aspirin 81 mg Capsule 81 mg PO DAILY acetaminophen [Tylenol] 325 mg capsule 650 mg PO Q6H PRN (Reason: Pain) losartan 25 mg tablet 12.5 mg PO DAILY Rx Instructions: Takes at bedtime metoprolol succinate [Toprol XL] 25 mg tablet extended release 24 hr 25 mg PO DAILY nitroglycerin 0.4 mg tablet, sublingual 0.4 mg SL Q5M PRN (Reason: Chest Pain) Label Comments: patient has it,but has never used it trazodone 100 mg tablet 100 mg PO DAILY valacyclovir 500 mg tablet 500 mg PO DAILY Rx Instructions: Takes at bedtime Referrals: Yazan Aguirre MD [Primary Care Provider] - Stand Alone Forms: Patient Portal/API, Work Release Note
[2022-08-31] MEDS: KETOROLAC 30 MG/ML VIAL IM (21:19)
--- NOTE | 2022-08-31 21:49 | PC.NURSE ---
During discharge pt reports getting injured while working recently, reports getting hit by a door to the left side. Dr. Marin notified.
[2022-08-31 21:53] VITALS: BP 105/70; PULSE 68; O2SAT 95
== END 2022-08-31 21:54 | disposition home or self-care (01) ==
PROVIDERS: Emergency Provider Emergency Medicine; PCP Internal Medicine
DX: M54.42 Lumbago with sciatica, left side (principal)
CPT/HCPCS: 81003; 96372; 99283; J1885

== ENCOUNTER → 2022-09-15 15:48 | Outpatient (CLI) | payer MEDICARE, OTHER, SELFPAY ==
[2021-06-15 15:57] VITALS: BMI 33.0
--- NOTE | 2022-09-15 15:51 | DI.MRI.S_ITS ---
PROCEDURE: MR THORACIC SPINE WO CON INDICATIONS: CERVICAL AND THORACIC PAIN TECHNIQUE: Noncontrast sagittal T1 spine echo and T2 fast spin echo, sagittal STIR, and T2 fast spin echo through the thoracic spine. COMPARISON: [facility], MR, MR THORACIC SPINE WO/W CON, 11/04/2019, 11:52. [facility], MR, MR LUMBAR SPINE WO CON, 03/12/2021, 8:40. [facility], MR, MR CERVICAL SPINE WO CON, 09/15/2022, 16:15. FINDINGS: Image quality: Excellent. Alignment and Curvature: There is normal bony alignment. Bone Marrow: Marrow is of normal overall signal. No acute vertebral body compression fractures. Spinal Cord: Visualized spinal cord is normal in size and signal. Paraspinous Soft Tissues: No paravertebral masses. Miscellaneous: At the T8-T9 level, there is a mild central disc protrusion. Minimal central canal narrowing is seen, with minimal mass effect upon the ventral spinal cord. Moderate bilateral neural foraminal narrowing can be seen. At the T9-T10 level, there is moderate disc bulge seen, with a central disc protrusion. Mild central canal narrowing is seen, with mild mass effect upon the ventral spinal cord. Moderate bilateral neural foraminal narrowing can be seen. Milder degenerative changes are seen elsewhere. IMPRESSION: Focal lower thoracic spine degenerative changes are seen, which are mildly progressed compared to 2019. Dictated by: Jim Carpenter M.D. on 09/15/2022 at 17:03 Approved by: Jim Carpenter M.D. on 09/15/2022 at 17:06
--- NOTE | 2022-09-15 15:51 | DI.MRI.S_ITS ---
PROCEDURE: MR CERVICAL SPINE WO CON INDICATIONS: CERVICAL AND THORACIC PAIN TECHNIQUE: Noncontrast sagittal T1 spin echo and T2 fast spin echo, sagittal STIR, foraminal oblique sagittal T2 fast spin echo, and axial gradient echo or T2 fast spin echo through the cervical spine. COMPARISON: [facility], CR, XR CERVICAL SPINE 2 OR 3 VIEWS, 09/06/2022, 10:59. [facility], RG, MRI C-SPINE W/O CONTRAST, 08/25/2017, 13:30. [facility], RG, MRI C-SPINE W/O CONTRAST, 07/14/2016, 15:15. [facility], MR, MR THORACIC SPINE WO CON, 09/15/2022, 16:15. FINDINGS: Image quality: There is artifact associated with the metallic hardware. Alignment and Curvature: There is normal bony alignment. Bone Marrow: Marrow demonstrates normal overall signal. Spinal Cord: Visualized spinal cord has normal size and signal. No cerebellar tonsillar herniation. Paraspinous Soft Tissues: No paravertebral masses. Prevertebral soft tissues are normal in thickness. C2-C3: The disc height and disk signal are relatively well-preserved. Moderate generalized disc osteophyte complex is seen. Mild facet joint hypertrophy is seen. There is moderate to severe left-sided and moderate right-sided neural foraminal narrowing. No significant central canal narrowing is seen. These imaging findings have progressed compared to the prior study. C3-C4: The disc height is well-preserved. Loss of disc signal is seen at this level. At least moderate disc osteophyte complex is seen. There is moderate right-sided and prominent left-sided facet hypertrophy. Moderate to severe bilateral neural foraminal narrowing can be seen, left worse than right. Mild to moderate central canal narrowing is seen. These imaging findings have progressed compared to the prior study. C4-C5: The disc height and disk signal are relatively well-preserved. Moderate disc osteophyte complex is seen, which is eccentric to the right. There is moderate right-sided and at least moderate left-sided facet hypertrophy. There is at least moderate left-sided and moderate right-sided neural foraminal narrowing. Mild central canal narrowing is seen. These degenerative changes are worse than on the prior. C5-C6: Postoperative changes are seen, with a metallic disc fusion device. Moderate disc osteophyte complex is seen, which is eccentric to the right. Moderate facet joint hypertrophy is seen. Moderate bilateral neural foraminal narrowing is seen. Moderate central canal narrowing is seen. There is associated mass effect upon the ventral spinal cord. These degenerative changes are mildly worse than in 2018. C6-C7: Mild loss of disc height is seen. Loss of disc signal is seen. Moderate generalized disc osteophyte complex is seen. There is a mild central disc osteophyte protrusion seen. Moderate facet hypertrophy is seen, right worse than left. At least moderate bilateral neural foraminal narrowing can be seen. Mild to moderate central canal narrowing is seen. These degenerative changes are slightly more prominent than in 2018. C7-T1: [id number]-[id number] loss of disc height and disc signal can be seen. [id number] disc osteophyte complex is seen, which is eccentric to the left. Moderate facet joint hypertrophy is seen. Mild bilateral neural foraminal narrowing is seen. The central canal is widely patent. These imaging findings have progressed compared to the prior study. IMPRESSION: Multiple levels of cervical spine degenerative change are seen, which are progressed compared to 2018. Disc fusion device seen at C5-C6. Dictated by: Jim Carpenter M.D. on 09/15/2022 at 17:07 Approved by: Jim Carpenter M.D. on 09/15/2022 at 17:12
== END ==
PROVIDERS: PCP Internal Medicine; Referring Provider Physical Medicine & Rehabilitation; Visit Provider Physical Medicine & Rehabilitation
DX: M48.02 Spinal stenosis, cervical region (principal); M47.814 Spondylosis without myelopathy or radiculopathy, thoracic region
CPT/HCPCS: 72141; 72146

== ENCOUNTER 2022-10-24 20:45 | Emergency (ER) | payer MEDICARE, OTHER, SELFPAY ==
[2021-06-15 15:57] VITALS: BMI 33.0
[2022-10-24] VITALS (9 sets, daily range): BP systolic 115–132; BP diastolic 62–79; PULSE 64–70; RESP 17–20; O2SAT 93–97; BMI 33.2
[2022-10-24 21:07] LABS: Bilirubin Urine UA 1+ (NEGATIVE); Glucose Urine UA NEGATIVE (Negative); Ketones Urine UA NEGATIVE (NEGATIVE); Leukocyte Esterase Urine UA NEGATIVE (NEGATIVE); Nitrite Urine UA POSITIVE (Negative); Occult Blood Urine UA 3+ (Negative); Protein Urine UA 2+ (Negative); Specific Gravity Urine UA >=1.030 (1.000-1.035)
[2022-10-24 21:26] LABS: Appearance Urine UA TURBID
[2022-10-24 21:27] LABS: Color Urine UA BROWN; Ictotest Urine Negative (Negative)
[2022-10-24 21:28] LABS: Bacteria Urine Many (>30); RBC Urine >100/HPF (0-5/HPF); Squamous Epithelial Cell Urine 0-1 /HPF (0-5/HPF); Transitional Epi Cells Urine 0-1/HPF (0-5/HPF)
[2022-10-24 21:29] LABS: Culture Indicated Urine Specimen Cultured; WBC Urine 1-5/HPF (0-5/HPF)
[2022-10-24 21:33] LABS: Add Manual Diff / Slide Review NO; Basophils Absolute Auto 100 /uL (0-100); Basophils Percent Auto 0.7 % (0-2); Eosinophils Absolute Auto 200 /uL (0-450); Eosinophils Percent Auto 2.8 % (2-4); Hematocrit 43.1 % (41-53); Hemoglobin 14.3 g/dL (13.5-17.5); Lymphocytes Absolute Auto 1200 /uL (1100-4500); Lymphocytes Percent Auto 14.2 % (25-40); Mean Corpuscular HGB Conc 33.3 % (30-36); Mean Corpuscular Hemoglobin 31.5 PG (26-34); Mean Corpuscular Volume 94.6 fL (80-100); Monocytes Absolute Auto 1000 /uL (0-900); Monocytes Percent Auto 11.7 % (3-14); Neutrophils Absolute Auto 5900 /uL (1500-7000); Neutrophils Percent Auto 70.6 % (50-75); Platelet Count 165 X10^3/uL (150-400); Red Blood Cell Count 4.55 X10^6/uL (4.5-5.9); Red Cell Distribution Width 13.4 % (11.6-14.8); White Blood Cell Count 8.3 X10^3/uL (4.5-11.0)
[2022-10-24 21:40] LABS: Alanine Aminotransferase 39 IU/L (<50); Albumin Globulin Ratio 1.3 (1.0-2.8); Alkaline Phosphatase 55 U/L (38-126); Aspartate Aminotransferase 40 IU/L (17-59); BUN Creatinine Ratio 18.5 (6-22); Bilirubin Total 0.6 mg/dL (0.2-1.3); Blood Urea Nitrogen 17 mg/dL (9-20); Carbon Dioxide 25 mmol/L (22-32); Chloride 105 mmol/L (98-107); Estimated Glomerular Filt Rate > 60 mL/min (>60); Globulin 3.2 g/dL (1.7-4.1); Glucose 129 mg/dL (80-110); HEMOLYSIS 45 (0-50); Lipase 63 U/L (23-300); Potassium 4.2 mmol/L (3.4-5.1); Sodium 137 mmol/L (137-145); Total Protein 7.2 g/dL (6.3-8.2)
--- NOTE | 2022-10-24 22:15 | ED.GENADULT ---
HPI - General Adult General Chief complaint: Abdominal Pain Stated complaint: blood in urine, abd pain front to back Time Seen by Provider: 10/24/22 22:06 Source: patient Mode of arrival: Ambulatory History of Present Illness HPI narrative: 67-year-old gentleman with a history of prior myocardial infarction, hyperlipidemia, BPH, and prior kidney stones presents with the acute onset of acute hematuria. Within 30 minutes he developed Minor nausea and 8/10 pain in the right inguinal area radiating through to his back. He is, pain free by time of my evaluation. Describes no recent fevers, cough, chills. No constipation or abdominal pain. He does have an appointment scheduled with a spine surgeon to talk about some cervical disc issues and steroid injections tomorrow. Not complaining of fever or dysuria. He states his pain was similar to both prior kidney stone (which required retrieval and was treated by Urology at [facility]) as well as previously ruptured appendicitis. Related Data Home Medications Medication Instructions Recorded Confirmed acetaminophen 325 mg capsule 650 mg PO Q6H PRN Pain 09/15/19 10/24/22 (Tylenol) losartan 25 mg tablet 12.5 mg PO DAILY 09/15/19 10/24/22 metoprolol succinate 25 mg 25 mg PO DAILY 09/15/19 10/24/22 tablet,extended release 24 hr (Toprol XL) nitroglycerin 0.4 mg sublingual 0.4 mg sublingual Q5M PRN Chest 09/15/19 10/24/22 tablet Pain trazodone 100 mg tablet 100 mg PO DAILY For sleep 09/15/19 10/24/22 valacyclovir 500 mg tablet 500 mg PO DAILY 09/15/19 10/24/22 ezetimibe 10 mg tablet 10 mg PO DAILY 11/15/20 10/24/22 rosuvastatin 40 mg tablet 40 mg PO DAILY 11/15/20 10/24/22 gabapentin 300 mg capsule 300 mg PO QPM 10/24/22 10/24/22 montelukast 10 mg tablet 10 mg PO 10/24/22 tamsulosin 0.4 mg capsule 0.4 mg PO DAILY 10/24/22 10/24/22 tramadol 50 mg tablet 50 mg PO BID PRN Pain, Moderate 10/24/22 10/24/22 Allergies Allergy/AdvReac Type Severity Reaction Status Date / Time No Known Drug Allergies Allergy Verified 08/30/22 10:46 Review of Systems Review of Systems Narrative: Pertinent positive and negative findings as per HPI Patient History Medical History Ascending aorta enlargement BPH (benign prostatic hyperplasia) CAD (coronary artery disease) Degenerative disc disease Degenerative joint disease of knee Hearing loss Heart attack High cholesterol History of colon polyps Kidney stones Non-STEMI (non-ST elevated myocardial infarction) (07/28/19) PEG (obstructive sleep apnea) Osteoarthritis Pre-diabetes RBBB (right bundle branch block) Ribs, multiple fractures (~2005) Seasonal allergies Surgical History H/O vasectomy (~1995) History of adenoidectomy History of laparoscopic appendectomy (05/31/21) History of shoulder surgery History of total left knee replacement (11/22/20) Hx of arthroscopic knee surgery Hx of fusion of cervical spine (~1995) Hx of heart artery stent (07/28/19) Status post laminectomy (~2011) Family History Father Stroke Mother Hypertension Brother Heart disease Stroke Social History household members: spouse Smoking Status: Never smoker alcohol intake: current Smoking Status: Never smoker alcohol intake frequency: holidays/special occasions only Substance Use Type: does not use Exam Initial Vital Signs Initial Vital Signs: Vital Signs Pulse Rate 68 10/24/22 20:53 Respiratory Rate 19 10/24/22 20:53 Blood Pressure 124/73 10/24/22 20:53 Pulse Oximetry 96 10/24/22 20:53 General: Healthy appearing, in no acute distress. Able to give a complete and coherent history. Well-nourished well-developed HEENT: Moist mucous membranes, normal sclera with reactive pupils, Neck: No JVD, supple Respiratory: Lungs are clear to auscultation, no wheezing no rales no rhonchi. Full and symmetrical air movement Cardiac: Regular rate and rhythm no murmurs no bruits Abdomen: Soft, nontender, good bowel tones, no flank pain Skin: Warm and dry, no rashes Neurologic: Grossly neurologically intact with no obvious asymmetries or abnormalities Extremities: No trauma, well perfused Psych: Cooperative, appropriate insight and affect Course Orders Ordered: ED Orders 10/24/22 20:20 Ictotest Urine Stat Urinalysis and Microscopic Stat Urine Culture Stat 10/24/22 20:55 Complete Blood Count AUTO DIFF Stat Comprehensive Metabolic Panel Stat Lipase Stat 10/24/22 21:19 EKG-12 Lead Stat 10/24/22 22:18 CT kidney ureter bladder (KUB) Stat 10/24/22 23:33 Urinalysis and Microscopic Stat Ondansetron HCl (Ondansetron 4 Mg Odt) 4 mg PO NOW PRN PRN Reason: Nausea And Vomiting Ondansetron HCl (Ondansetron 4 Mg/2 Ml Inj) 4 mg IV NOW PRN PRN Reason: Nausea And Vomiting Vital Signs Vital signs: Vital Signs - 8 hr 10/24/22 21:10 10/24/22 20:53 10/24/22 20:53 Pulse Rate 65 68 Respiratory Rate 20 19 Blood Pressure 120/74 124/73 Pulse Oximetry 97 96 Oxygen Delivery Method Room Air 10/24/22 21:00 10/24/22 21:00 Pulse Rate 66 Respiratory Rate 18 Blood Pressure 120/74 Pulse Oximetry 95 Oxygen Delivery Method Medical Decision Making Lab Data 10/24/22 20:55 10/24/22 20:55 Labs: Lab Results 10/24/22 10/24/22 10/24/22 Range/Units 20:20 20:55 20:55 WBC 8.3 (4.5-11.0) X10^3/uL RBC 4.55 (4.5-5.9) X10^6/uL Hgb 14.3 (13.5-17.5) g/dL Hct 43.1 (41-53) % MCV 94.6 (80-100) fL MCH 31.5 (26-34) PG MCHC 33.3 (30-36) % RDW 13.4 (11.6-14.8) % Plt Count 165 (150-400) X10^3/uL Neut % (Auto) 70.6 (50-75) % Lymph % (Auto) 14.2 L (25-40) % [place] % (Auto) 11.7 (3-14) % Eos % (Auto) 2.8 (2-4) % Baso % (Auto) 0.7 (0-2) % Neut # (Auto) 5900 (6695-6251) /uL Lymph # (Auto) 1200 (9197-3460) /uL [place] # (Auto) 1000 H (0-900) /uL Eos # (Auto) 200 (0-450) /uL Baso # (Auto) 100 (0-100) /uL Sodium 137 (137-145) mmol/L Potassium 4.2 (3.4-5.1) mmol/L Chloride 105 (98-107) mmol/L Carbon Dioxide 25 (22-32) mmol/L BUN 17 (9-20) mg/dL Creatinine 0.92 (0.66-1.25) mg/dL Estimated GFR > 60 (>60) mL/min BUN/Creatinine Ratio 18.5 (6-22) Glucose 129 H (80-110) mg/dL Calcium 9.0 (8.4-10.2) mg/dL Total Bilirubin 0.6 (0.2-1.3) mg/dL AST 40 (17-59) IU/L ALT 39 (<50) IU/L Alkaline Phosphatase 55 (38-126) U/L Total Protein 7.2 (6.3-8.2) g/dL Albumin 4.0 (3.5-5.0) g/dL Globulin 3.2 (1.7-4.1) g/dL Albumin/Globulin Ratio 1.3 (1.0-2.8) Lipase 63 (23-300) U/L Urine Color Brown Urine Appearance Turbid Urine pH 5.0 (4.5-8.0) Ur Specific [place] >=1.030 H (1.000-1.035) Urine Protein 2+ H (Negative) Urine Glucose (UA) Negative (Negative) g/dL Urine Ketones Negative (NEGATIVE) Urine Occult Blood 3+ H (Negative) Urine Nitrate Positive H (Negative) Urine Bilirubin 1+ H (NEGATIVE) Ur Bilirubin Confirm Negative (Negative) Urine Urobilinogen 1.0 (0.2) E.U./dL Ur Leukocyte Esterase Negative (NEGATIVE) Urine RBC >100/hpf H (0-5/HPF) Urine WBC 1-5/hpf (0-5/HPF) Ur Squamous Epith Cells 0-1 /hpf (0-5/HPF) Ur Transition Epith Cell 0-1/hpf (0-5/HPF) Urine Bacteria Many (>30) H (None) Ur Culture Indicated? Specimen cultured MDM Narrative Medical decision making narrative: CC: Acute onset hematuria with right flank pain Complicating co-morbidities: Coronary artery disease, chronic back pain, prior kidney stones Data collected from: patient, Medical records reviewed: Prior surgical, hospital admission and orthopedic notes are reviewed Differential considered: Kidney stone, pyelonephritis, bowel obstruction, shingles Exam documented above, pertinent findings include: Completely normal exam at this point with no flank or abdominal pain Lab Test results independently reviewed as above. Pertinent findings: CBC is unremarkable with no evidence of leukocytosis or acute anemia Chemistries are reassuring Urinalysis has greater than 100,000 red blood cells, positive nitrites, no leukocyte esterase and bacteria appreciated Independently reviewed EKG Sinus rhythm, rate at 69. Right bundle branch block, first-degree AV block. No acute ischemic changes Imaging studies independently reviewed:?There is a small urinary stone measuring up to 0.3 cm at the right ureterovesicular junction with associated mild hydroureteronephrosis withperinephric and periureteral fat stranding, compatible with a recently passed stone. Discussion: Findings reviewed with patient and his . History and CT exam are all consistent with a recently passed 3 mm right kidney stone with resolving hydronephrosis and no evidence of infection, pyelonephritis, obstruction that would need further stenting or evaluation. No need for additional imaging, testing or hospitalization. As the stone has passed and he is already on tamsulosin and no longer having any pain no additional treatments are required at this time. I did ask that he try and remain as hydrated as possible and follow up with his primary care physician. He is safe for discharge home Discharge Plan Departure Patient Disposition: Home Clinical Impression: Nephrolithiasis Instructions: DI for Kidney Stones Activity Restrictions/Additional Instructions: Thank you for coming in today Acute hematuria is always something that does catch her attention. Fortunately, your blood work was very reassuring, there is no evidence of overwhelming infection. The CT scan confirms you have passed a 3 mm kidney stone. There is still a bit of swelling through the ureter that will continue to improve. At this time there is no need for any additional treatment, imaging or referral to Urology. The CT scan did not show any acute findings on the left side in the area of your mid back pain. Please do discuss this with your adaptive physical education specialist. Using 400 mg of ibuprofen (2 nxwe-jal-qaafhht pills) and 1 Tylenol every 6 hours can be very helpful in controlling pain. It is okay to combined ibuprofen and tramadol. I encourage you to follow-up with your primary care physician If you find that you are getting worse or develop any new symptoms, please feel free to return to the emergency department for further evaluation. Prescriptions: No Action ezetimibe 10 mg Tablet 10 mg PO DAILY rosuvastatin 40 mg Tablet 40 mg PO DAILY Patient Comments: Takes at bedtime tramadol 50 mg tablet 50 mg PO BID PRN (Reason: Pain, Moderate) Patient Comments: TAKE 1 TABLET BY MOUTH TWICE DAILY NEEDED FOR PAIN montelukast 10 mg tablet 10 mg PO gabapentin 300 mg capsule 300 mg PO QPM tamsulosin 0.4 mg capsule 0.4 mg PO DAILY acetaminophen [Tylenol] 325 mg capsule 650 mg PO Q6H PRN (Reason: Pain) losartan 25 mg tablet 12.5 mg PO DAILY Rx Instructions: Takes at bedtime metoprolol succinate [Toprol XL] 25 mg tablet extended release 24 hr 25 mg PO DAILY nitroglycerin 0.4 mg tablet, sublingual 0.4 mg SL Q5M PRN (Reason: Chest Pain) Patient Comments: patient has it,but has never used it trazodone 100 mg tablet 100 mg PO DAILY valacyclovir 500 mg tablet 500 mg PO DAILY Rx Instructions: Takes at bedtime Referrals: Yazan Aguirre MD [Primary Care Provider] - Stand Alone Forms: Patient Portal/API
--- NOTE | 2022-10-24 22:18 | DI.CT.S_ITS ---
PROCEDURE: CT KIDNEY URETER BLADDER (KUB) INDICATIONS: acute flank pain with hematuria TECHNIQUE: Axial sections were acquired from the lung bases to the pubic symphysis. Coronal and sagittal reformats were performed. For radiation dose reduction, the following was used: automated exposure control, adjustment of mA and/or kV according to patient size. COMPARISON: CT, CT ABDOMEN PELVIS W CON, 05/31/2021, 10:41. [facility], CT, CT KIDNEY URETER BLADDER (KUB), 10/24/2018, 14:41. FINDINGS: Image quality: There is metallic streak artifact secondary to patient's surgical hardware in the ribs. Lung bases: There is mild scarring or atelectasis in the lung bases. Heart: Heart is normal in size. URINARY: Right Kidney and Ureter: There is a small urinary stone measuring up to 0.3 cm at the right ureterovesicular junction with associated mild hydroureteronephrosis with perinephric and periureteral fat stranding. Noncontrast evaluation demonstrates no discrete renal mass. Left Kidney and Ureter: No stones or hydronephrosis. No hydroureter. Bladder: Normal wall thickness. No stones. ABDOMEN: Liver: Noncontrast evaluation of the liver demonstrates a small hypodense focus within the anterior left hepatic lobe likely representing a cyst. Gallbladder: Within normal limits without calcified gallstones. Biliary ducts: No biliary ductal dilatation. Pancreas: Unremarkable. Spleen: Normal in size. Adrenal Glands: No adrenal nodules. Stomach and Bowel: Stomach, small bowel loops, and colon are normal in caliber and wall thickness. There are surgical sutures along the cecum likely related to prior appendectomy. No acute pericecal inflammatory changes. There is colonic diverticulosis without acute diverticulitis. Peritoneum: No abnormal intraperitoneal fluid. No free air. Ventral Wall: No hernia. Abdominal Nodes: No retroperitoneal or mesenteric adenopathy by size criteria. Vessels: Aorta and inferior vena cava are normal in size. PELVIS: Pelvic Organs: There is moderate enlargement of the prostate. Pelvic Nodes: No enlarged lymph nodes. Miscellaneous: No inguinal hernias identified. Bones: There are postsurgical changes status post surgical fixation of the right 6th rib laterally. There are postsurgical changes status post prior fixation and fusion at L4-5 with an intervertebral spacer and bilateral pedicle screws. Visualized osseous structures demonstrate no suspicious focal lesions. IMPRESSION: 1. Small urinary stone in the bladder at the right UVJ measuring up to 0.3 cm compatible with a recently passed stone. 2. Persistent moderate right hydroureteronephrosis. 3. Colonic diverticulosis without acute diverticulitis. Dictated by: Danny Bedolla M.D. on 10/24/2022 at 22:58 Approved by: Danny Bedolla M.D. on 10/24/2022 at 23:04
[2022-10-25 00:09] VITALS: BP 122/64; PULSE 71; RESP 16; O2SAT 95
== END 2022-10-25 00:10 | disposition home or self-care (01) ==
PROVIDERS: Emergency Provider Emergency Medicine; PCP Internal Medicine
DX: N20.0 Calculus of kidney (principal); Z87.442 Personal history of urinary calculi; R10.9 Unspecified abdominal pain
CPT/HCPCS: 36415; 74176; 80053; 81001; 83690; 85025; 87086; 93005; 99283; 99284

== ENCOUNTER → 2023-07-12 09:41 | Outpatient (CLI) | payer MEDICARE, OTHER, SELFPAY ==
[2021-06-15 15:57] VITALS: BMI 33.0
--- NOTE | 2023-07-12 | DI.CT.S_ITS ---
PROCEDURE: CT SINUS SCREEN WO CON INDICATIONS: Allergic Rhinitis TECHNIQUE: Noncontrast 3.0 mm axial images acquired from the frontal sinuses to the mid-sella, with coronal and sagittal reformats. For radiation dose reduction, the following was used: automated exposure control, adjustment of mA and/or kV according to patient size. COMPARISON: None. FINDINGS: Image quality: Excellent. Maxillary Sinuses: Right maxillary sinus retention cyst measures 2.2 x 1.4 cm. No remodeling Ethmoid Air Cells: No bony remodeling or destruction. Sinuses are clear. Sphenoid Sinuses: No bony remodeling or destruction. Sinuses are clear. Frontal Sinuses: No bony remodeling or destruction. Sinuses are clear. Ostiomeatal Complexes: Ostiomeatal complexes are patent. No Estefany cells. Miscellaneous: Visualized intra-orbital contents are normal. No danitza bullosa or paradoxical turbinate curvature. No nasal septal deviation. IMPRESSION: Right maxillary sinus retention cyst. No evidence of remodeling Approved by: Felipe Wylie M.D. on 07/12/2023 at 14:59
== END ==
PROVIDERS: PCP Internal Medicine; Referring Provider Internal Medicine; Visit Provider Internal Medicine
DX: J32.0 Chronic maxillary sinusitis (principal); J34.1 Cyst and mucocele of nose and nasal sinus; J31.0 Chronic rhinitis
CPT/HCPCS: 70486

== ENCOUNTER 2023-08-09 06:30 | Day surgery (SDC) | payer MEDICARE, OTHER, SELFPAY ==
[2021-06-15 15:57] VITALS: BMI 33.0
--- NOTE | 2023-08-09 | PATH_ITS ---
[facility] Accession Number: [id number] No. of containers..01 Tissue . 01 Material submitted: . colon - RECTUS SIGMOID POLYP . 01 Diagnosis: Colon, rectus sigmoid, biopsy: - Tubulovillous adenoma. - Negative for high grade dysplasia. TXN 08/13/2023 1517 Local . 01 Electronically signed: . Mirtha Balderrama MD, Pathologist NPI- [id number] . 01 Gross description: . RECTUS SIGMOID POLYP: Received in formalin is multiple fragment(s) of hunter, soft tissue the largest fragment measurn A1ng 2.0 x 1.5 x 1.5 is bisected and submitted in A1, and remaining specimen filterd an submitted in toto in A2. /AAY 08/11/2023 0641 Local . 01 Pathologist provided ICD-10: Z12.11 . 01 CPT . 392504 Specimen Comment: A courtesy copy of this report has been sent to [phone] Performed at: [address] [facility] [address] [place] [address], [place], [place] [id number] MD Danny Petersen MD Phone: [phone]
[2023-08-09] MEDS: LACTATED RINGERS 1,000 ML 42 ML IV (07:20)
[2023-08-09 07:21] VITALS: BP 118/69; PULSE 74; RESP 16; TEMP 36.3; O2SAT 92
--- NOTE | 2023-08-09 08:17 | PM.HP.1 ---
History of Present Illness History of Present Illness Date Patient Seen: 08/09/23 Time Patient Seen: 08:17 Chief complaint: Screening Colonoscopy Narrative: Neno is a 67-year-old man who presents for a colonoscopy. His last was over 10 years ago and was normal. He had polyps once in the 80s on a colonoscopy. [facility] Medical History Ascending aorta enlargement BPH (benign prostatic hyperplasia) CAD (coronary artery disease) Degenerative disc disease Degenerative joint disease of knee Hearing loss Heart attack High cholesterol History of colon polyps Kidney stones Non-STEMI (non-ST elevated myocardial infarction) (07/28/19) PEG (obstructive sleep apnea) Osteoarthritis Pre-diabetes RBBB (right bundle branch block) Ribs, multiple fractures (~2005) Seasonal allergies Surgical History H/O vasectomy (~1995) History of adenoidectomy History of laparoscopic appendectomy (05/31/21) History of shoulder surgery History of total left knee replacement (11/22/20) Hx of arthroscopic knee surgery Hx of fusion of cervical spine (~1995) Hx of heart artery stent (07/28/19) Status post laminectomy (~2011) Family History Father Stroke Mother Hypertension Brother Heart disease Stroke Social History household members: spouse Smoking Status: Never smoker alcohol intake: current Meds Home Medications and Allergies Home Medications Medication Instructions Recorded Confirmed Type acetaminophen 325 mg capsule 650 mg PO Q6H PRN Pain 09/15/19 08/09/23 History (Tylenol) losartan 25 mg tablet 12.5 mg PO DAILY 09/15/19 08/09/23 History metoprolol succinate 25 mg 25 mg PO DAILY 09/15/19 08/09/23 History tablet,extended release 24 hr (Toprol XL) nitroglycerin 0.4 mg sublingual 0.4 mg sublingual Q5M PRN Chest 09/15/19 08/09/23 History tablet Pain trazodone 100 mg tablet 100 mg PO DAILY For sleep 09/15/19 08/09/23 History valacyclovir 500 mg tablet 500 mg PO DAILY 09/15/19 08/09/23 History ezetimibe 10 mg tablet 10 mg PO DAILY 11/15/20 08/09/23 History rosuvastatin 40 mg tablet 40 mg PO DAILY 11/15/20 08/09/23 History gabapentin 300 mg capsule 300 mg PO QPM 10/24/22 08/09/23 History montelukast 10 mg tablet 10 mg PO DAILY 10/24/22 08/09/23 History tamsulosin 0.4 mg capsule 0.4 mg PO DAILY 10/24/22 08/09/23 History tramadol 50 mg tablet 50 mg PO BID PRN Pain, Moderate 10/24/22 08/09/23 History Allergies Allergy/AdvReac Type Severity Reaction Status Date / Time No Known Drug Allergies Allergy Verified 08/09/23 07:35 Exam Vital Signs (past 8 hours): - 08/09/23 07:21 Temperature 97.3 F L Pulse Rate 74 Respiratory Rate 16 Blood Pressure 118/69 Pulse Oximetry 92 Oxygen Delivery Method Room Air Oxygen Delivery Method Room Air Const General: healthy appearing and No acute distress Resp Effort & Inspection: normal respiratory effort Assessment & Plan Assessment and plan (1) Colon cancer screening: Status: Acute Plan We reviewed the risks and benefits of colonoscopy for colon cancer screening and he would like to proceed.
--- NOTE | 2023-08-09 09:00 | PM.OP.COLON ---
Operative Date/Time/Diagnoses Date of procedure: 08/09/23 Time of procedure: 09:00 Pre-op diagnosis: Colon cancer screening Post-op diagnosis: same Procedure & Clinicians Study performed: Colonoscopy Same procedure as scheduled: Yes Surgeon: Pillo Kaye Procedure Notes Procedure in detail: Surgeon: Pillo Kaye MD Anesthesia: Corazon Hayes CRNA Procedure: The patient was brought to the endoscopy suite, placed in left lateral decubitus position. The patient was connected to monitoring devices. A time-out was performed. Sedation was administered. Once the patient was adequately sedated, a digital rectal exam was performed and was normal. The scope was then inserted and advanced to the cecum where the appendiceal orifice was identified and photographed. The scope was then slowly withdrawn over greater than 6 minutes. The mucosa was thoroughly inspected. There was 5 mm polyp in the cecum with a snare was never found. There was 2 cm polypoid mass at the rectosigmoid junction. It was removed with a hot snare in multiple passes. The scope was retroflexed in the rectum. No other abnormalities were seen. The scope was straightened and removed. The patient was awakened and brought to recovery. Scope withdrawal time: 22 minutes Sedation time: 27 minutes EBL: 5 mL Findings: Diminutive polyp in the cecum not retrieved and 2 cm polypoid mass at the rectosigmoid junction Post-procedure Disposition: PACU
[2023-08-09 09:03] VITALS: BP 89/51; PULSE 68; RESP 12; TEMP 36.1; O2SAT 95
[2023-08-09 09:08] VITALS: BP 95/68; PULSE 75; RESP 17; TEMP 36.1; O2SAT 95
[2023-08-09 09:13] VITALS: BP 107/65; PULSE 74; RESP 15; TEMP 36.1; O2SAT 95
[2023-08-09 09:16] VITALS: BP 110/61; PULSE 70; RESP 14; O2SAT 95
== END 2023-08-09 09:43 | disposition home or self-care (01) ==
PROVIDERS: PCP Internal Medicine; Referring Provider Surgery; Visit Provider Surgery
PROC: 0DJD8ZZ Inspection of Lower Intestinal Tract, Via Natural or Artificial Opening Endoscopic (ICD-10-PCS; CPT 45378; principal; 2023-08-09 08:15)
DX: Z12.11 Encounter for screening for malignant neoplasm of colon (principal); Z86.010 Personal history of colon polyps; D12.7 Benign neoplasm of rectosigmoid junction
CPT/HCPCS: 45385; J2704

== ENCOUNTER → 2023-10-24 12:15 | Outpatient (CLI) | payer MEDICARE, OTHER, SELFPAY ==
[2021-06-15 15:57] VITALS: BMI 33.0
--- NOTE | 2023-10-24 12:18 | DI.ECHO.S_ITS ---
[facility] +---------+ : : [address] : : : : [id number] : : : : Phone: [phone] Echocardiogram Report + + :Name: APRIL REY Study Date: 10/24/2023 Height: 72 in : :[facility] ReadingLocation: Weight: 235 lb : : Gender: Male BSA: 2.3 m2 : :: 1955 Age: 68 yrs BP: 127/79 mmHg: :Reason For Study: ASCENDING AORTA ENLARGEMENT : :Ordering Physician: DARWIN, : :GAEL Performed By: Adwoa Lucero : :Referring: GAEL MALONE : + + Interpretation Summary 1) Normal left ventricular size, wall motion, systolic function (EF 55-60%). 2) Mildly enlarged right ventricle with normal function. 3) No significant valvular abnormalities. 4) The ascending aorta is moderate-severely enlarged at 4.6cm. 5) Compared to the Echo done 09/15/2022, no significant change. Procedure: A two-dimensional transthoracic echocardiogram with color flow and Doppler was performed. The study quality was technically adequate. Comparison is made with the echocardiogram of 09/15/2022. The patient was in sinus bradycardia with heart rates between 50-61 bpm during the exam. Left Ventricle: The left ventricle is normal in size and wall thickness. The ejection fraction is estimated to be 55-60%. Left ventricular systolic function appears normal without focal wall motion abnormalities. Diastolic parameters suggest a relaxation abnormality of the left ventricle, consistent with probable normal filling pressures. Right Ventricle: The right ventricle is mildly dilated. The right ventricular systolic function is normal. Atria: The left atrial size is normal. Right atrial size is normal. There is no Doppler evidence for an interatrial shunt. The atrial septum is aneurysmal. Mitral Valve: The mitral valve is normal in structure and function. There is a flat closure plane of the the mitral valve leaflets. There is mild mitral regurgitation. Aortic Valve: The aortic valve is trileaflet. The aortic valve opens well. There is no aortic valve stenosis. Tricuspid Valve: The tricuspid valve is normal in structure and function. There is mild tricuspid regurgitation. Pulmonic Valve: The pulmonic valve leaflets are thin and pliable; valve motion is normal. There is mild pulmonic regurgitation. Great Vessels: The aortic root is normal size. The ascending aorta is moderate-severely enlarged. Pericardium/ Pleura There is no pericardial effusion. There is no pleural effusion. MMode/2D Measurements & Calculations LVIDd: 5.2 cm LVOT diam: 2.4 cm LVIDs: 3.5 cm Ao root diam: 4.0 cm FS: 33.5 % asc Aorta Diam: 4.6 cm IVSd: 0.85 cm LVPWd: 0.96 cm LV rdz. diameter/BSA (cm/m^2): 2.3 LV sys. diameter/BSA (cm/m^2): 1.5 LA A2 area: 22.3 cm2 RA long axis: 6.4 cm LA A4 area: 22.6 cm2 RA area: 21.3 cm2 LA length (vol): 6.0 cm RA vol: 59.7 ml LA vol: 70.7 ml RA : 26.1 ml/m2 LA vol index: 31.0 ml/m2 IVC diam: 2.7 cm RVD1 (basal): 4.5 cm RVD2 (mid): 3.7 cm TAPSE: 1.8 cm Doppler Measurements & Calculations Ao V2 max: 119.9 cm/sec LVOT Max Agustin: 84.7 cm/sec Ao V2 mean: 80.9 cm/sec LV V1 max P.9 mmHg Ao max P.8 mmHg LV V1 VTI: 18.6 cm Ao mean P.9 mmHg MURALI(I,D): 3.0 cm2 Ao V2 VTI: 29.2 cm MURALI(V,D): 3.3 cm2 sev ratio: 0.64 MURALI indexed to BSA (cm^2/m^2): 1.3 MV E max agustin: 70.0 cm/sec PA V2 max: 79.3 cm/sec MV A max agustin: 53.9 cm/sec PA V2 mean: 60.5 cm/sec MV E/A: 1.3 PA mean P.6 mmHg Med Peak E' Agustin: 6.5 cm/sec PA pr(Accel): 19.1 mmHg E/E' med: 10.8 Lat Peak E' Agustin: 6.7 cm/sec E/E' lat: 10.4 E/e' average: 10.6 MV dec time: 0.23 sec SV(LVOT): 87.6 ml Reading Physician:04:06 PM
== END ==
LOC: ECHO 12:16
PROVIDERS: PCP Internal Medicine; Referring Provider Internal Medicine Cardiovascular Disease; Visit Provider Internal Medicine Cardiovascular Disease
DX: I77.89 Other specified disorders of arteries and arterioles (principal); I08.1 Rheumatic disorders of both mitral and tricuspid valves
CPT/HCPCS: 93306

== ENCOUNTER → 2024-11-15 10:58 | Outpatient (CLI) | payer MEDICARE, OTHER, SELFPAY ==
[2021-06-15 15:57] VITALS: BMI 33.0
[2024-11-15 12:07] LABS: Add Manual Diff / Slide Review NO; Basophils Absolute Auto 100 /uL (0-100); Basophils Percent Auto 0.9 % (0-2); Eosinophils Absolute Auto 200 /uL (0-450); Eosinophils Percent Auto 3.9 % (2-4); Hematocrit 43.3 % (41-53); Hemoglobin 14.7 g/dL (13.5-17.5); Lymphocytes Absolute Auto 1500 /uL (1100-4500); Lymphocytes Percent Auto 23.3 % (25-40); Mean Corpuscular HGB Conc 34.1 % (30-36); Monocytes Absolute Auto 900 /uL (0-900); Monocytes Percent Auto 13.7 % (3-14); Neutrophils Absolute Auto 3600 /uL (1500-7000); Neutrophils Percent Auto 58.2 % (50-75); Platelet Count 163 X10^3/uL (150-400); Red Blood Cell Count 4.61 X10^6/uL (4.5-5.9); Red Cell Distribution Width 12.8 % (11.6-14.8); White Blood Cell Count 6.2 X10^3/uL (4.5-11.0)
[2024-11-15 12:26] LABS: BUN Creatinine Ratio 20.4 (6-22); Blood Urea Nitrogen 19 mg/dL (9-20); Calcium 9.3 mg/dL (8.4-10.2); Carbon Dioxide 25 mmol/L (22-32); Chloride 105 mmol/L (98-107); Cholesterol 150 mg/dL (140-199); Estimated Glomerular Filt Rate > 60 mL/min (>60); Glucose 95 mg/dL (70-99); HDL Cholesterol 51 mg/dL (40-60); HEMOLYSIS < 15 (0-50); LDL Cholesterol Calculated 65 mg/dL (<100); Potassium 4.3 mmol/L (3.4-5.1); Sodium 138 mmol/L (137-145); Triglycerides 170 mg/dL (35-150)
== END ==
LOC: LAB 11:01
PROVIDERS: PCP Internal Medicine; Referring Provider Internal Medicine Cardiovascular Disease; Visit Provider Internal Medicine Cardiovascular Disease
DX: I10 Essential (primary) hypertension (principal); I25.10 Atherosclerotic heart disease of native coronary artery without angina pectoris
CPT/HCPCS: 36415; 80048; 80061; 85025

== ENCOUNTER 2025-02-01 20:12 | Emergency (ER) | payer MEDICARE, OTHER, SELFPAY ==
[2021-06-15 15:57] VITALS: BMI 33.0
[2025-02-01 20:30] VITALS: BP 118/64; PULSE 70; RESP 16; TEMP 37; O2SAT 95; BMI 33.9
--- NOTE | 2025-02-01 21:36 | ED.FALL ---
HPI - Fall General Chief Complaint: Fall Stated Complaint: fell this morning. left shoulder pain Time Seen by Provider: 02/01/25 20:16 Source: patient Mode of arrival: Ambulatory History of Present Illness HPI Narrative: 69-year-old male history of CAD today presents with left shoulder and left-sided rib pain after his sneed retriever pulled him from the leash and fell to the ground while chasing another dog. Patient did take 1 tramadol prior to arrival for the pain but having difficulty moving that arm above his shoulder and shortness of breath when he moves. Other than what is stated 14 point review of system is negative. Related Data Home Medications ?Medication ?Instructions ?Recorded ?Confirmed acetaminophen 325 mg capsule 650 mg PO Q6H PRN Pain 09/15/19 02/01/25 (Tylenol) losartan 25 mg tablet 12.5 mg PO DAILY 09/15/19 02/01/25 metoprolol succinate 25 mg 25 mg PO DAILY 09/15/19 02/01/25 tablet,extended release 24 hr (Toprol XL) nitroglycerin 0.4 mg sublingual 0.4 mg sublingual Q5M PRN Chest 09/15/19 02/01/25 tablet Pain trazodone 100 mg tablet 100 mg PO DAILY For sleep 09/15/19 02/01/25 valacyclovir 500 mg tablet 500 mg PO DAILY 09/15/19 02/01/25 ezetimibe 10 mg tablet 10 mg PO DAILY 11/15/20 02/01/25 rosuvastatin 40 mg tablet 40 mg PO DAILY 11/15/20 02/01/25 tamsulosin 0.4 mg capsule 0.4 mg PO DAILY 10/24/22 02/01/25 tramadol 50 mg tablet 50 mg PO BID PRN Pain, Moderate 10/24/22 02/01/25 aspirin 81 mg tablet,delayed 81 mg PO DAILY 02/01/25 02/01/25 release Allergies Allergy/AdvReac Type Severity Reaction Status Date / Time No Known Drug Allergies Allergy Verified 02/01/25 20:28 Review of Systems Review of Systems ROS Unobtainable: All systems reviewed & are unremarkable except as noted in HPI and below Patient History Medical History Ascending aorta enlargement BPH (benign prostatic hyperplasia) CAD (coronary artery disease) Degenerative disc disease Degenerative joint disease of knee Hearing loss Heart attack High cholesterol History of colon polyps Kidney stones Non-STEMI (non-ST elevated myocardial infarction) (07/28/19) PEG (obstructive sleep apnea) Osteoarthritis Pre-diabetes RBBB (right bundle branch block) Ribs, multiple fractures (~2005) Seasonal allergies Surgical History H/O vasectomy (~1995) History of adenoidectomy History of laparoscopic appendectomy (05/31/21) History of shoulder surgery History of total left knee replacement (11/22/20) Hx of arthroscopic knee surgery Hx of fusion of cervical spine (~1995) Hx of heart artery stent (07/28/19) Status post laminectomy (~2011) Family History Father Stroke Mother Hypertension Brother Heart disease Stroke Social History household members: spouse alcohol intake: current Smoking Status: Never smoker alcohol intake frequency: holidays/special occasions only Exam Narrative Exam Narrative: GENERAL: [69] year old patient appears stated age. Well-developed patient, in mild distress. HEAD: Atraumatic. Normocephalic. EYES: Pupils equal round and reactive. Extraocular motions intact. No scleral icterus. No injection or drainage. NECK: Trachea midline. Non tender CARDIOVASCULAR: Regular rate and rhythm without murmurs, gallops, or rubs. RESPIRATORY: Clear to auscultation. Breath sounds equal bilaterally. No wheezes, rales, or rhonchi. EXTREMITIES: No edema or joint tenderness. Left shoulder decreased range of motion with flexion adduction external rotation to 90? abduction, motor sensory intact, empty can intact +2 rad pulse cap refill <2secs BACK: Nontender without deformity or crepitance. No flank tenderness. NEURO: AOx3. GCS 15 nonfocal neuro exam SKIN: No rash or erythema of visible areas Initial Vital Signs Initial Vital Signs: Vital Signs Temperature 98.6 F 02/01/25 20:30 Pulse Rate 70 02/01/25 20:30 Respiratory Rate 16 02/01/25 20:30 Blood Pressure 118/64 02/01/25 20:30 Pulse Oximetry 95 02/01/25 20:30 Oxygen Delivery Method Room Air 02/01/25 20:30 Course Orders Ordered: ED Orders 02/01/25 21:35 XR ribs LT 2V Stat XR shoulder LT 2+ views Stat Vital Signs Vital signs: Vital Signs - 8 hr 02/01/25 20:30 Temperature 98.6 F Pulse Rate 70 Respiratory Rate 16 Blood Pressure 118/64 Pulse Oximetry 95 Oxygen Delivery Method Room Air MDM - Fall Imaging Data Chest x-ray: Radiologist's Impression: [address] [address] XRay Report Signed Patient: Neno Arceo MR#: [id number] : 1955 Acct:[id number] Age/Sex: 69 / M Date of Service: 02/01/25 Loc: ED Accession Number: [id number] Procedure: XR ribs LT min 3V w CXR1V Ordering Provider: Tj Brooks D.O. PROCEDURE: XR RIBS LT MIN 3V W CXR1V INDICATIONS: pain TECHNIQUE: 3 views of the ribs were acquired, along with a single view chest. COMPARISON: None. FINDINGS: Surgical changes and devices: Clavicular. Bones and chest wall: No fractures or dislocations. No suspicious bony lesions. Overlying soft tissues appear unremarkable. Lungs and pleura: No pleural effusions or pneumothorax. Lungs appear clear. Mediastinum: Mediastinal contours appear normal. Heart size is normal. IMPRESSION: No visualized acute fracture or dislocation. However, if clinical concern and/or pain persist, short interval imaging followup in 7-10 days is recommended, as occult injury cannot be definitively excluded. Dictated by: Ashley Brown M.D. on 02/01/2025 at 22:09 Approved by: Ashley Brown M.D. on 02/01/2025 at 22:09 Extremity x-ray #1: Radiologist's Impression: [address] [address] XRay Report Signed Patient: Neno Arceo MR#: [id number] : 1955 Acct:[id number] Age/Sex: 69 / M Date of Service: 02/01/25 Loc: ED Accession Number: [id number] Procedure: XR shoulder LT 2+ views Ordering Provider: Brooks,Tj C. D.O. PROCEDURE: XR SHOULDER LT MIN 2V INDICATIONS: pain TECHNIQUE: 3 views of the shoulder were acquired. COMPARISON: None. FINDINGS: Bones: No fractures or dislocations. No suspicious bony lesions. Visualized ribs appear intact. Acromioclavicular and glenohumeral degenerative change. Humeral osteophyte is present. Soft tissues: No suspicious soft tissue calcifications. IMPRESSION: No visualized acute fracture or dislocation. However, if clinical concern and/or pain persist, short interval imaging followup in 7-10 days is recommended, as occult injury cannot be definitively excluded. MDM Narrative Medical decision making narrative: Vital signs, nurse triage note medication list previous ER visits in all imaging study reviewed. Chest x-ray and shoulder x-ray did not show any fracture or dislocation. Differential diagnosis includes arthritis, strain, rotator cuff tendinitis, pneumothorax, rib fracture. Patient given Cardale and ibuprofen here. Discharge Plan Departure Patient Disposition: Home Clinical Impression: Acute shoulder pain Qualifiers: Laterality: left Qualified Code(s): M25.512 - Pain in left shoulder Instructions: DI for Shoulder Pain Activity Restrictions/Additional Instructions: Return with new or worsening symptoms. Take your tramadol and alternate with ibuprofen as needed for pain control. Follow up PCP in 1-2 weeks if no improvement in symptoms. Prescriptions: No Action ezetimibe 10 mg Tablet 10 mg PO DAILY rosuvastatin 40 mg Tablet 40 mg PO DAILY Patient Comments: Takes at bedtime tramadol 50 mg tablet 50 mg PO BID PRN (Reason: Pain, Moderate) Patient Comments: TAKE 1 TABLET BY MOUTH TWICE DAILY NEEDED FOR PAIN tamsulosin 0.4 mg capsule 0.4 mg PO DAILY aspirin 81 mg tablet,delayed release (DR/EC) 81 mg PO DAILY acetaminophen [Tylenol] 325 mg capsule 650 mg PO Q6H PRN (Reason: Pain) losartan 25 mg tablet 12.5 mg PO DAILY Rx Instructions: Takes at bedtime metoprolol succinate [Toprol XL] 25 mg tablet extended release 24 hr 25 mg PO DAILY nitroglycerin 0.4 mg tablet, sublingual 0.4 mg SL Q5M PRN (Reason: Chest Pain) Patient Comments: patient has it,but has never used it trazodone 100 mg tablet 100 mg PO DAILY valacyclovir 500 mg tablet 500 mg PO DAILY Rx Instructions: Takes at bedtime Referrals: Yazan Aguirre MD [Primary Care Provider, Internal Medicine] Stand Alone Forms: Patient Portal/API
[2025-02-01] MEDS: IBUPROFEN 400 MG TABLET PO (21:40)
[2025-02-01] MEDS: HYDROCODONE/ACET 5/325 TABLET 1 TAB PO (21:40)
[2025-02-01 22:27] VITALS: BP 110/66; PULSE 67; RESP 17; O2SAT 94
== END 2025-02-01 22:30 | disposition home or self-care (01) ==
PROVIDERS: Emergency Provider Family Medicine; PCP Internal Medicine
DX: M25.512 Pain in left shoulder (principal); X50.9XXA Other and unspecified overexertion or strenuous movements or postures, initial encounter; Y93.K1 Activity, walking an animal
CPT/HCPCS: 71101; 73030; 99283